=== PATIENT | male | born 1940 | race Caucasian/White ===

== ENCOUNTER 2018-11-07 11:47 | Inpatient (IN) | payer MEDICARE, OTHER ==
[~2018-11-07] VITALS: Ht 167.6 cm; Wt 62.6 kg
[~2018-11-07 11:47] MED LIST: ACET-868 PO; AMLO5TAB4 PO; CLON0.1T14 PO; DOCU-141 PO; ESCI5TAB PO; LEVO500T2 PO; MELA3TAB54 PO; MULT1TAB11 PO; RISP0.253 PO; SENN-168 PO; VALP250C PO
--- NOTE | 2018-11-07 12:19 | NUR ---
PT BROUGHT IN BY SON FOR PSYCH EVAL. PT AAOX3, VSS. PT CALM & COOPERATIVE. DENIES SI/HI, CP, SOB, DIZZINESS, N/V, WEAKNESS @ THIS TIME. PT SEEN & EVAL'D BY DR. ARNETT & WILL CONT TO MONITOR. SON @ BS.
[2018-11-07 12:28] LABS: BASOPHILS % (AUTO) 0.8 % (0.0-2.0); EOSINOPHILS % (AUTO) 2.5 % (0.0-6.0); HEMATOCRIT 37 % (39-51); HEMOGLOBIN 12.4 g/dL (13.5-17.5); LYMPHOCYTES # (AUTO) 1.2 /CMM (0.8-4.8); LYMPHOCYTES % (AUTO) 19.6 % (20.0-44.0); MEAN CORPUSCULAR HGB CONC 33 g/dl (31.0-36.0); MEAN CORPUSCULAR VOLUME 97 fL (80-96); MONOCYTES # (AUTO) 0.8 /CMM (0.1-1.30); MONOCYTES % (AUTO) 12.3 % (2.0-12.0); NEUTROPHILS # (AUTO) 4.1 /CMM (1.8-8.9); NEUTROPHILS % (AUTO) 64.8 % (43.0-81.0); PLATELET COUNT (AUTO) 155 /CMM (150-450); RED BLOOD CELL COUNT(AUTO) 3.84 MIL/uL (4.5-6.0); WHITE BLOOD COUNT (AUTO) 6.3 K/uL (4.3-11.0)
[2018-11-07 12:30] LABS: CALCIUM, SERUM 9.2 mg/dL (8.5-10.1); CARBON DIOXIDE 27 mmol/L (21-32); CHLORIDE 110 mmol/L (98-107); CREATININE 1.4 mg/dL (0.6-1.3); GLUCOSE 80 mg/dL (74-106); SODIUM SERUM 145 mmol/L (136-145); UREA NITROGEN, BLOOD 15 mg/dL (7-18)
[2018-11-07 12:36] LABS: ACETAMINOPHEN 0 ug/ml (10-30); ALANINE AMINOTRANSFERASE 26 U/L (12-78); ALBUMIN 3.3 g/dL (3.4-5.0); ALCOHOL, BLOOD < 3 mg/dL (0-0); ALKALINE PHOSPHATASE 63 U/L (46-116); ASPARTATE AMINOTRANSFERASE 36 U/L (15-37); BILIRUBIN,DIRECT 0.1 mg/dL (0.0-0.2); BILIRUBIN,TOTAL 0.6 mg/dL (0.2-1.0); SALICYLATE 0.8 mg/dL (2.8-20.0); TOTAL PROTEIN, SERUM 7.6 g/dL (6.4-8.2)
[2018-11-07 12:37] LABS: APPEARANCE,URINE Clear (CLEAR); BILIRUBIN,URINE Negative (NEGATIVE); BLOOD, URINE Trace-lysed Ery/uL (NEGATIVE); COLOR,URINE Yellow (YELLOW); KETONES,URINE Negative (NEGATIVE); LEUKOCYTE ESTERASE ,URINE Negative (NEGATIVE); NITRITE, URINE Negative (NEGATIVE); PH,URINE 6.5 (5.0-8.0); PROTEIN,URINE Negative (NEGATIVE); UGLUCOSE Negative (NEGATIVE)
[2018-11-07 12:39] LABS: BACTERIA,URINE Rare /HPF (None Seen); SQUAMOUS EPITHELIAL CELL,UR Rare /HPF (None Seen); WBC,URINE 0-2 /HPF (0-3)
--- NOTE | 2018-11-07 15:15 | NUR ---
DONNA, ALTERATIONS SUPERVISOR @ BS FOR EVAL.
--- NOTE | 2018-11-07 16:51 | NUR ---
REPORT GIVEN TO SYLVIA GAITAN FOR CONT OF CARE.
[2018-11-07] MEDS ORDERED: clonazePAM 0.5 MG TABLET PO PRN (17:30)
[2018-11-07] MEDS ORDERED: MAGNESIUM HYDROXIDE 30 ML UDC PO PRN (17:30)
[2018-11-07] MEDS ORDERED: ACETAMINOPHEN 325 MG TABLET PO PRN (17:30)
[2018-11-07] MEDS ORDERED: MAG HYDROX/AL HYDROX/SIMETH 30 ML UDC PO PRN (17:30)
[2018-11-07 20:00] VITALS: BP 105/53
--- NOTE | 2018-11-07 21:10 | NUR ---
ADMISSION NOTES: Admitted a 78 years old male. Pt is on 5150 for GD. Per hold pt's son brought him in ER after he has been unable to care for himself at the assisted living facility where he has been living. Pt has h/o of mental health issues and he has been diagnosed with Schizoaffective disorder. Pt was irritable, lost 25lbs in the past eight weeks, as he has not been eating, not showering or caring for himself. His son also reports that pt has been decompensating as he has not been receiving his medications at the facility. Pt is not able to care for himself at the facility. Upon face to face assessment, pt is a&ox1-2, confused, disoriented, disorganized, irritable, uncooperative, easily agitated. V/S wnl. Pt is ambulatory with assist, fall precaution implemented at all times. Pt refused to sign consent forms. MRSA done in ER. Belongings check for any contraband items. No contraband found. Pt refused skin/body assessment. Dr. Suarez and Angus made aware of the admission. All needs attended and anticipated. Will continue to monitor for safety and behavior [id number].
[2018-11-07 23:47] VITALS: BP 126/64
[2018-11-08 07:33] LABS: ALANINE AMINOTRANSFERASE 23 U/L (12-78); ALBUMIN 3.4 g/dL (3.4-5.0); ALKALINE PHOSPHATASE 56 U/L (46-116); ASPARTATE AMINOTRANSFERASE 29 U/L (15-37); BILIRUBIN,TOTAL 0.6 mg/dL (0.2-1.0); CARBON DIOXIDE 26 mmol/L (21-32); CHLORIDE 117 mmol/L (98-107); CREATININE 1.3 mg/dL (0.6-1.3); GLUCOSE 81 mg/dL (74-106); POTASSIUM 4.4 mmol/L (3.5-5.1); SODIUM SERUM 152 mmol/L (136-145); TOTAL PROTEIN, SERUM 7.7 g/dL (6.4-8.2); UREA NITROGEN, BLOOD 15 mg/dL (7-18)
[2018-11-08 07:35] LABS: CHOLESTEROL 126 mg/dL (<200); HDL CHOLESTEROL 35 mg/dL (40-60); LDL 79 mg/dL (0-99); TRIGLYCERIDES 96 mg/dL (30-150)
[2018-11-08 08:00] VITALS: BP 123/66
--- NOTE | 2018-11-08 10:42 | NUR ---
Initial Discharge note: Social work spoke with residential coordinator Linda Sparks ([phone]) who verified pt is accepted to [facility] upon receiving clinical information. Clinical will be sent to [facility] once MD has completed H&P. Pts current discharge plan is to discharge to [facility] (Address: [address] [place] [address] ).
[2018-11-08] MEDS: risperiDONE 0.25 MG TABLET PO SCH ×2 (14:24→21:30)
[2018-11-08 16:00] VITALS: BP 111/67
[2018-11-08 20:45] VITALS: BP 106/55
[2018-11-08] MEDS: DIVALPROEX SODIUM 250 MG TABLET.DR PO SCH (21:30)
[2018-11-08] MEDS: MUPIROCIN OINT 2% 22 GM TUBE SCH (21:35)
[2018-11-08] MEDS: MIRTAZAPINE 15 MG TABLET PO SCH (23:21)
--- NOTE | 2018-11-09 04:50 | NUR ---
GPS RN NOTE: PATIENT IN STABLE CONDITION, NO SOB, NO ACUTE DISTRESS, BREATHING EVEN AND UNLABORED, ENDORSED FOR CONTINUITY OF CARE
[2018-11-09 08:00] VITALS: BP 146/60
[2018-11-09] MEDS: DIVALPROEX SODIUM 250 MG TABLET.DR PO SCH ×2 (08:40→21:19)
[2018-11-09] MEDS: risperiDONE 0.25 MG TABLET PO SCH ×2 (08:40→16:17)
[2018-11-09] MEDS: MUPIROCIN OINT 2% 22 GM TUBE SCH ×2 (08:59→21:18)
[2018-11-09 16:04] VITALS: BP 114/65
--- NOTE | 2018-11-09 19:30 | NUR ---
GPS RN NOTE, RECEIVED PATIENT AWAKE AND IN BED, NO S/S OR COMPLAINTS OF PAIN AT THIS TIME. PATIENT IS DISPLAYING NO S/S OF APPARENT DISTRESS AT THIS TIME. PATIENT BREATHING IS UNLABORED WITH EQUAL RISE AND FALL OF THE CHEST. PATIENT IS ALERT AND ORIENTED X 3 ON ROOM AIR WITH A SPO2 OF 95%. PATIENT IS MED COMPLIANT, COOPERATIVE, ANXIOUS, DISORGANIZED, AND NEEDS REDIRECTION. PATIENT HAS A PATIENT DENIES SUICIDE IDEATIONS AND HOMICIDAL IDEATIONS AT THIS TIME. PATIENT ASSISTED WITH TURNING AND REPOSITIONING Q 2HRS AND PRN FOR COMFORT AND CIRCULATION. PATIENT HAS NO NEEDS AT THIS TIME. PATIENT EDUCATED ON THE USE OF THE CALL ALVES. PATIENT BED SIDE RAILS UP X 2 FOR SAFETY, BED IS LOCKED, LOW, AND I WILL CONTINUE TO MONITOR AND MAINTAIN SAFETY Q15 MIN WITH THE HELP OF STAFF.
[2018-11-09 20:00] VITALS: BP 135/61
[2018-11-09] MEDS: MIRTAZAPINE 15 MG TABLET PO SCH (21:19)
[2018-11-10 08:07] VITALS: BP 106/68
[2018-11-10] MEDS: DIVALPROEX SODIUM 250 MG TABLET.DR PO SCH ×2 (08:37→20:50)
[2018-11-10] MEDS: MUPIROCIN OINT 2% 22 GM TUBE SCH ×2 (08:37→20:50)
[2018-11-10] MEDS: risperiDONE 0.25 MG TABLET PO SCH ×2 (08:37→16:36)
[2018-11-10] MEDS ORDERED: LIDOCAINE 1%-EPI 1:200,000 SDV 10 ML VIAL IJ ONE ×2 (15:30)
[2018-11-10 16:31] VITALS: BP 109/60
--- NOTE | 2018-11-10 18:27 | NUR ---
GPS/RN-NOTES SEEN BY STEVE YUAN WITH ORDERS ( LEFT FOREHEAD LESION INCISIONAL/PUNCH BIOPSY). CONSENT WAS DONE,MOST OF THE SUPPLY/MATERIALS WAS PREPARED EXCEPT FOR THE PUNCH BIOPSY NEEDLE IT IS NOT AVAILABLE AT THIS TIME,ER ALSO DON'T HAVE THE SAID ITEM PER RECREATION FACILITY ATTENDANT . WILL ENDORSE TO INCOMING NURSE TO FOLLOW UP AND ENDORSE TO MORNING NURSE TO FOLLOW UP IN AM .
[2018-11-10 20:00] VITALS: BP 103/59
[2018-11-10] MEDS: MIRTAZAPINE 15 MG TABLET PO SCH (21:55)
[2018-11-11 07:16] LABS: ALANINE AMINOTRANSFERASE 19 U/L (12-78); ALKALINE PHOSPHATASE 48 U/L (46-116); ASPARTATE AMINOTRANSFERASE 16 U/L (15-37); BILIRUBIN,TOTAL 0.6 mg/dL (0.2-1.0); CALCIUM, SERUM 9.5 mg/dL (8.5-10.1); CARBON DIOXIDE 25 mmol/L (21-32); CHLORIDE 112 mmol/L (98-107); CREATININE 1.4 mg/dL (0.6-1.3); GLUCOSE 84 mg/dL (74-106); POTASSIUM 4.5 mmol/L (3.5-5.1); SODIUM SERUM 145 mmol/L (136-145); TOTAL PROTEIN, SERUM 6.9 g/dL (6.4-8.2); UREA NITROGEN, BLOOD 21 mg/dL (7-18)
[2018-11-11 08:00] VITALS: BP 106/64
[2018-11-11] MEDS: risperiDONE 0.25 MG TABLET PO SCH ×2 (08:55→16:33)
[2018-11-11] MEDS: DIVALPROEX SODIUM 250 MG TABLET.DR PO SCH ×2 (08:55→21:33)
--- NOTE | 2018-11-11 11:14 | NUR ---
WOUND CARE CONSULT WOUND CARE RECEIVED CONSULT FOR FOREHEAD LESIONS, POSSIBLE SKIN CANCER. WOUND CARE WILL DEFER CONSULT TO PLASTIC SURGICAL TEAM WHO ARE CURRENTLY FOLLOWING. PATIENT WITH FLIP AT 22. WILL SEE PRN.
[2018-11-11 16:00] VITALS: BP 146/90
[2018-11-11] MEDS: MUPIROCIN OINT 2% 22 GM TUBE SCH ×2 (16:35→21:35)
[2018-11-11 20:26] VITALS: BP 107/61
[2018-11-11] MEDS: MIRTAZAPINE 15 MG TABLET PO SCH (21:33)
[2018-11-12] MEDS: TEMAZEPAM 7.5 MG CAPSULE PO PRN ×2 (01:29→22:18)
--- NOTE | 2018-11-12 07:30 | NUR ---
resting in rm.pleasant,cooperative. Addendum: 11/12/18 at 0815 by CHAD BAUER RN above note incorrect dakota.
[2018-11-12 08:00] VITALS: BP 127/67
[2018-11-12] MEDS: DIVALPROEX SODIUM 250 MG TABLET.DR PO SCH ×2 (09:32→21:15)
[2018-11-12] MEDS: MUPIROCIN OINT 2% 22 GM TUBE SCH ×2 (09:32→21:16)
[2018-11-12] MEDS: risperiDONE 0.25 MG TABLET PO SCH ×3 (09:32→17:23)
[2018-11-12 16:10] VITALS: BP 100/64
[2018-11-12 20:02] VITALS: BP 121/57
[2018-11-12] MEDS: MIRTAZAPINE 15 MG TABLET PO SCH (21:15)
[2018-11-13 08:00] VITALS: BP 118/62
[2018-11-13] MEDS: risperiDONE 0.25 MG TABLET PO SCH ×3 (09:30→16:51)
[2018-11-13] MEDS: MUPIROCIN OINT 2% 22 GM TUBE SCH ×2 (09:30→21:18)
[2018-11-13] MEDS: DIVALPROEX SODIUM 250 MG TABLET.DR PO SCH ×2 (09:30→21:15)
--- NOTE | 2018-11-13 10:48 | NUR ---
NABIL faxed SNF referral to Linda Sparks, rouge mixer at [facility] Address: [address] [facility], [place] [address] for review.
--- NOTE | 2018-11-13 12:00 | NUR ---
SW received a phone call from Linda Sparks, physical medicine specialist at [facility] Address: [address] [address] [address], [place] [address] stating pt was accepted tot he facility.
[2018-11-13 16:00] VITALS: BP 128/72
[2018-11-13 20:00] VITALS: BP 157/77
[2018-11-13] MEDS: MIRTAZAPINE 15 MG TABLET PO SCH (21:15)
[2018-11-13] MEDS: TEMAZEPAM 7.5 MG CAPSULE PO PRN (21:15)
[2018-11-14 08:00] VITALS: BP 116/60
[2018-11-14] MEDS: DIVALPROEX SODIUM 250 MG TABLET.DR PO SCH ×3 (08:11→22:11)
[2018-11-14] MEDS: risperiDONE 0.25 MG TABLET PO SCH ×2 (08:11→16:21)
[2018-11-14] MEDS: MUPIROCIN OINT 2% 22 GM TUBE SCH (08:13)
--- NOTE | 2018-11-14 09:55 | NUR ---
NABIL contacted pts son Solomon [phone] to inform him pt is discharging tomorrow 11/15/17 to [facility]. Pts son agrees with discharge plan.
[2018-11-14 16:01] VITALS: BP 108/58
[2018-11-14 20:00] VITALS: BP 123/50
[2018-11-14] MEDS ORDERED: MIRTAZAPINE 15 MG TABLET PO SCH (22:00)
[2018-11-14] MEDS: TEMAZEPAM 7.5 MG CAPSULE PO PRN (22:12)
[2018-11-15] MEDS: DIVALPROEX SODIUM 250 MG TABLET.DR PO SCH ×2 (05:16→13:05)
[2018-11-15 08:00] VITALS: BP 125/68
[2018-11-15] MEDS: risperiDONE 0.25 MG TABLET PO SCH (08:55)
--- NOTE | 2018-11-15 09:00 | NUR ---
GPS RN AM NOTES RECEIVED PT IN HIS ROOM, RESTING IN BED COMFORTABLY, COOPERATIVE, NO AGITATION AT THIS TIME, MED COMPLIANT,GOES TO THE DINING ROOM BUT ISOLATIVE.PLEASANT. DENIES SI/HI AT THIS TIME. NO S/S OF DISTRESS NOTED. NO C/O PAIN OR DISCOMFORT. FALL PRECAUTIONS IMPLEMENTED. NEEDS ATTENDED AND ANTICIPATED. WILL CONTINUE TO MONITOR Q15 MINS FOR SAFETY AND BEHAVIOR.
--- NOTE | 2018-11-15 14:14 | NUR ---
DISCHARGE NOTE: Pt was discharged at 3:00pm via [facility] ambulance trip#[phone] to [facility] ([facility] [address] [facility] [id number] . Pts Son Solomon [phone] has been notified and agrees with discharge plan. Pts mood was confused with congruent affect. Pt unable to communicate due to cognitive impairment. Pt will be under the care of Career Services Officer: Dr. Yaakov Rodríguez Address: [address] [place] [address] [address], [place] [address] and Psychiatrist: Psychiatrist: Dr. Chambers [address] [facility] [address], [place] [address] [phone]. The multidisciplinary exitcare form was done, printed, signed, and given to the patient.
--- NOTE | 2018-11-15 15:00 | NUR ---
DISCHARGED PT TO [facility]NOTE 2[facility] VIA AMBULANCE WITH STABLE V/S.CALM AND COOPERATIVE.DENIES ANY SI/HI.BODY CHECK DONE AND WAS COOPERATIVE.WITH BUE MULTIPLE DISCOLORATIONS/SCABS,BLE AND LT ELBOW DRY SCABS.NO S/S OF INFECTION.AMBULATES AD JOSE ANGEL WITH MIN ASSIST.DENIES ANY PAIN OR DISTRESS.CALLED SYLVIA COLON OF [facility][NOTE 2] AND GAVE REPORT.CALLED PT'S SON,MAX AND MADE AWARE OF THE DISCHARGE TO [facility]NOTE 2].
== END 2018-11-15 15:00 | DRG 885 ==
LOC: ER 11:47 → GPS 16:20
PROVIDERS: ADMIT Psychiatry & Neurology Psychiatry; ATTEND Psychiatry & Neurology Psychiatry
DX: F31.9 Bipolar disorder, unspecified (principal); F29 Unspecified psychosis not due to a substance or known physiological condition; F41.9 Anxiety disorder, unspecified; F03.90 Unspecified dementia, unspecified severity, without behavioral disturbance, psychotic disturbance, mood disturbance, and anxiety; Z73.6 Limitation of activities due to disability; E03.9 Hypothyroidism, unspecified; E78.5 Hyperlipidemia, unspecified; I10 Essential (primary) hypertension; I25.10 Atherosclerotic heart disease of native coronary artery without angina pectoris; K21.9 Gastro-esophageal reflux disease without esophagitis; I70.0 Atherosclerosis of aorta; D53.9 Nutritional anemia, unspecified; Z85.038 Personal history of other malignant neoplasm of large intestine; C44.309 Unspecified malignant neoplasm of skin of other parts of face; F20.9 Schizophrenia, unspecified
CPT/HCPCS: 36415; 70450-TC; 71045-TC; 80048-TC; 80053-TC; 80061-TC; 80076-TC; 80164-TC; 80305; 81000-TC; 85025-TC; 87081-TC; G0480; J3490

== ENCOUNTER 2019-04-30 13:48 | Inpatient (IN) | payer MEDICARE, OTHER ==
[~2019-04-30] VITALS: Ht 180.3 cm; Wt 84.4 kg
[~2019-04-30 13:48] MED LIST changes: -ACET-868 PO; -AMLO5TAB4 PO; -CLON0.1T14 PO; -DOCU-141 PO; -ESCI5TAB PO; -LEVO500T2 PO; -MELA3TAB54 PO; -MULT1TAB11 PO; -RISP0.253 PO; -SENN-168 PO
--- NOTE | 2019-04-30 14:00 | NUR ---
DARIUS PA [facility] FOR PSYCH EVAL, PER REPORT AGGRESSION. PT AAOX4, VSS, RR EVEN & UNLABORED. PT CALM & COOPERATIVE, NAD NOTED AT THIS TIME. AWAITING EVAL BY ERMD/PA & WILL CONT TO MONITOR.
[2019-04-30 14:32] LABS: APPEARANCE,URINE Clear (CLEAR); BASOPHILS % (AUTO) 0.9 % (0.0-2.0); BILIRUBIN,URINE Negative (NEGATIVE); BLOOD, URINE Negative Ery/uL (NEGATIVE); COLOR,URINE Yellow (YELLOW); EOSINOPHILS % (AUTO) 3.6 % (0.0-6.0); HEMATOCRIT 38 % (39-51); HEMOGLOBIN 12.8 g/dL (13.5-17.5); KETONES,URINE Negative (NEGATIVE); LEUKOCYTE ESTERASE ,URINE Negative (NEGATIVE); LYMPHOCYTES # (AUTO) 1.4 /CMM (0.8-4.8); LYMPHOCYTES % (AUTO) 31.4 % (20.0-44.0); MEAN CORPUSCULAR HGB CONC 34 g/dl (31.0-36.0); MEAN CORPUSCULAR VOLUME 97 fL (80-96); MONOCYTES # (AUTO) 0.9 /CMM (0.1-1.30); MONOCYTES % (AUTO) 19.5 % (2.0-12.0); NEUTROPHILS % (AUTO) 44.6 % (43.0-81.0); NITRITE, URINE Negative (NEGATIVE); PLATELET COUNT (AUTO) 104 /CMM (150-450); PROTEIN,URINE Negative (NEGATIVE); RED BLOOD CELL COUNT(AUTO) 3.93 MIL/uL (4.5-6.0); UGLUCOSE Negative (NEGATIVE); UROBILINOGEN,URINE 0.2 EU/dL (0.2); WHITE BLOOD COUNT (AUTO) 4.4 K/uL (4.3-11.0)
[2019-04-30 14:38] LABS: CALCIUM, SERUM 8.8 mg/dL (8.5-10.1); CARBON DIOXIDE 30 mmol/L (21-32); CHLORIDE 107 mmol/L (98-107); CREATININE 1.3 mg/dL (0.6-1.3); GLUCOSE 78 mg/dL (74-106); POTASSIUM 4.1 mmol/L (3.5-5.1); SODIUM SERUM 143 mmol/L (136-145); UREA NITROGEN, BLOOD 17 mg/dL (7-18)
[2019-04-30 14:43] LABS: ALANINE AMINOTRANSFERASE 22 U/L (12-78); ALBUMIN 3.2 g/dL (3.4-5.0); ALKALINE PHOSPHATASE 51 U/L (46-116); ASPARTATE AMINOTRANSFERASE 29 U/L (15-37); BILIRUBIN,DIRECT 0.1 mg/dL (0.0-0.2); BILIRUBIN,TOTAL 0.3 mg/dL (0.2-1.0)
[2019-04-30 14:44] LABS: ACETAMINOPHEN < 2 ug/ml (10-30); ALCOHOL, BLOOD < 3 mg/dL (0-0); SALICYLATE 0.8 mg/dL (2.8-20.0)
[2019-04-30 15:13] LABS: EOSINOPHILS % (MANUAL) 4 % (0-4); LYMPHOCYTES % (MANUAL) 33 % (16-48); MONOCYTES % (MANUAL) 13 % (0-11.0); NEUTROPHILS % (MANUAL) 50 (42-76)
[2019-04-30] MEDS ORDERED: MAG30ORA PO (15:24)
[2019-04-30] MEDS ORDERED: RISP0.5T5 PO (15:24)
[2019-04-30] MEDS ORDERED: DIVA125C2 PO (15:24)
[2019-04-30] MEDS ORDERED: ACET325T53 PO (15:24)
[2019-04-30] MEDS ORDERED: CRAN450C PO (15:24)
[2019-04-30] MEDS ORDERED: AMIN30LI2 PO (15:24)
[2019-04-30] MEDS ORDERED: NA P133E RC (15:24)
[2019-04-30] MEDS ORDERED: MIRT15TA PO (15:24)
[2019-04-30] MEDS ORDERED: MAGN400O6 PO (15:24)
--- NOTE | 2019-04-30 16:39 | NUR ---
REPORT GIVEN TO SYLVIA VITAL FOR CONT OF CARE.
--- NOTE | 2019-04-30 18:37 | NUR ---
GPS/RN-NOTES RECEIVED 78 Y.O MALE PATIENT FROM [facility] ER. PATIENT ON 5150 FOR DTO AND GD ADULT. PATIENT SIGN ALL ADMISSION PAPERS .DR. PATE AWARE WITH ORDERS. PATIENT'S SON BRIAN SANTANA MADE AWARE OF PATIENT ADMISSION.CONTRABAND DONE. WILL ENDORSE TO NEXT SHIFT FOR CONTINUITY OF CARE AND FOR THE COMPLETION OF ADMISSION PROCESS .
--- NOTE | 2019-04-30 19:00 | NUR ---
RN-NOTES: ADMITTED A 78-YR OLD MALE, FROM [facility] ON 5150 FOR DTO/GD. PER HOLD, PT WAS PREOCCUPIED AND SOMEWHAT SUSPICIOUS. PATIENT HAS BEEN UNPREDICTABLE AND EXTREMELY LABILE, AND HE WILL SUDDENLY BECOME ANGRY AND VERBALLY AGGRESSIVE TOWARDS NURSING STAFF, CURSING AND YELLING FOR NO REASON. UPON FACE TO FACE ASSESSMENT, PATIENT IS ALERT AND ORIENTED X2, CALM, COOPERATIVE WITH CARE, FEELING DEPRESSED, WITH PERIODS OF CONFUSION, INTERACTS WHEN ENGAGED. NO SUICIDAL/HOMICIDAL IDEATION OR HALLUCINATIONS VERBALIZED. NO AGITATION NOTED. PT. WAS ADVISED OF THE HOLD. PT'S RIGHTS DISCUSSED, A GUIDE TO PRESCRIPTION MEDICATIONS PROVIDED. IN NO APPARENT DISTRESS NOTED. BELONGINGS WERE INVENTORIED AND CHECKED FOR CONTRABAND. PT. IS UNDER THE PSYCHIATRIC CARE OF DR. PATE ORDERS OBTAINED AND UNDER THE MEDICAL CARE OF MILADY BRAVO. NOTIFIED OF PT'S ADMISSION. SKIN ASSESSMENT DONE AND NOTED WITH RASHES ON LEFT ANTERIOR ANKLE AND LEFT GROIN. WOUND CONSULT ORDERED. BED IN LOCKED POSITION TO MAINTAIN SAFETY. FALL PRECAUTIONS IMPLEMENTED. WILL CONTINUE TO MONITOR Q15 MINS. FOR SAFETY AND BEHAVIOR.
[2019-04-30 20:00] VITALS: BP 126/57
[2019-04-30 20:19] VITALS: BP 126/57
[2019-04-30] MEDS ORDERED: MAG HYDROX/AL HYDROX/SIMETH 30 ML UDC PO PRN (21:00)
[2019-04-30] MEDS ORDERED: LORAZEPAM 0.5 MG TABLET PO PRN (21:00)
[2019-04-30] MEDS ORDERED: MAGNESIUM HYDROXIDE 30 ML UDC PO PRN (21:00)
[2019-04-30] MEDS ORDERED: ACETAMINOPHEN 325 MG TABLET PO PRN (21:00)
[2019-04-30] MEDS: DIVALPROEX SODIUM 125 MG CAP.SPRINK PO SCH (21:22)
[2019-04-30] MEDS: MIRTAZAPINE 15 MG TABLET PO SCH (21:23)
[2019-05-01] MEDS ORDERED: ACETAMINOPHEN 325 MG TABLET PO PRN (03:00)
[2019-05-01 07:12] LABS: CREATININE 1.3 mg/dL (0.6-1.3)
[2019-05-01 07:25] LABS: CHOLESTEROL 175 mg/dL (<200); HDL CHOLESTEROL 31 mg/dL (40-60); LDL 123 mg/dL (0-99); TRIGLYCERIDES 112 mg/dL (30-150)
[2019-05-01 08:00] VITALS: BP 155/78
--- NOTE | 2019-05-01 09:00 | NUR ---
SW contacted Linda, admissions clerk at [facility] Address: [address] [address], [place] [address] who stated pt is able to return once stable for discharge.
[2019-05-01] MEDS: risperiDONE-M 0.5 MG TAB.RAPDIS PO SCH ×2 (09:08→16:25)
[2019-05-01] MEDS: DIVALPROEX SODIUM 125 MG CAP.SPRINK PO SCH ×2 (09:08→21:23)
[2019-05-01 16:00] VITALS: BP 145/68
--- NOTE | 2019-05-01 16:07 | NUR ---
NABIL contacted pts son Solomon [phone] to discuss pts treatment plan and discharge plan to [facility]. Son stated he agreed and knew what the process for psychiatric hospitalization was. Son stated he has been dealing with pts mental illness since he was a teenager and was well aware of how the holds worked. Son also stated that he use to be pts conservator but it recently but that he is still in charge of making healthcare decision for pt.
[2019-05-01] MEDS: CLOTRIMAZOLE/BETAMETASONE DIPROPIONATE 15 GM TUBE TP SCH (16:57)
[2019-05-01] MEDS ORDERED: VITAMINS A AND D 56.7 GM TUBE TP PRN (18:00)
[2019-05-01] MEDS: CLOTRIMAZOLE 1% 15 GM TUBE TP SCH (18:30)
[2019-05-01 20:00] VITALS: BP 127/62
[2019-05-01] MEDS: MIRTAZAPINE 15 MG TABLET PO SCH (21:24)
[2019-05-01] MEDS: TEMAZEPAM 7.5 MG CAPSULE PO PRN (21:27)
[2019-05-02 08:00] VITALS: BP 118/73
--- NOTE | 2019-05-02 08:15 | NUR ---
WOUND CARE CONSULT WOUND CARE RECEIVED CONSULT FOR ANKLE FUNGAL INFECTION, LEFT GROIN REDNESS. WOUND CARE WILL DEFER CONSULT AND TREATMENT PLANS TO PLASTIC SURGICAL TEAM WHO ARE CURRENTLY FOLLOWING THIS PATIENT. PATIENT WITH FLIP AT 19, WILL SEE PRN.
--- NOTE | 2019-05-02 09:12 | NUR ---
INITIAL DISCHARGE PLAN: Per pts son Solomon [phone] he wishes for pt to return to [facility] Address: [address] [place] [address] . Pt also wishes to return. NABIL contacted Linda prize coordinator at [facility] Address: [address] [place] [address] who stated pt is able to return once stable for discharge.NABIL will help form a safe and proper discharge in collaboration with .
[2019-05-02] MEDS: DIVALPROEX SODIUM 125 MG CAP.SPRINK PO SCH ×2 (09:57→20:58)
[2019-05-02] MEDS: risperiDONE-M 0.5 MG TAB.RAPDIS PO SCH ×2 (09:59→17:36)
[2019-05-02] MEDS: CLOTRIMAZOLE/BETAMETASONE DIPROPIONATE 15 GM TUBE TP SCH ×2 (10:06→17:38)
[2019-05-02] MEDS: CLOTRIMAZOLE 1% 15 GM TUBE TP SCH ×2 (10:08→17:38)
--- NOTE | 2019-05-02 11:15 | NUR ---
GROUP NOTE: Pt participated in group on 05/02/19 at 1000 discussing the topic of discharge. S: "I just want to go back to [facility]Note 2] and how long will I be here?" O: Pt was calm and cooperative and maintained good eye contact. Pt kept repeating "7 to 10 days yes that's fine." A: Pt expressed willingness to stay here until psychiatrist discharged him. Pt gained awareness of mental illness and stated, "I am Bipolar and I make sure to take my medications as ordered." P: Pt will continue milieu treatment and continue medication stabilization.
[2019-05-02 16:12] VITALS: BP 112/73
[2019-05-02 20:00] VITALS: BP 118/59
[2019-05-02] MEDS: MIRTAZAPINE 15 MG TABLET PO SCH (21:06)
[2019-05-02] MEDS: TEMAZEPAM 7.5 MG CAPSULE PO PRN (22:23)
[2019-05-03 08:00] VITALS: BP 146/72
[2019-05-03] MEDS: risperiDONE-M 0.5 MG TAB.RAPDIS PO SCH ×2 (08:35→16:07)
[2019-05-03] MEDS: DIVALPROEX SODIUM 125 MG CAP.SPRINK PO SCH ×2 (08:35→20:53)
[2019-05-03] MEDS: CLOTRIMAZOLE 1% 15 GM TUBE TP SCH ×2 (08:38→16:07)
[2019-05-03] MEDS: CLOTRIMAZOLE/BETAMETASONE DIPROPIONATE 15 GM TUBE TP SCH ×2 (08:40→16:07)
[2019-05-03 16:00] VITALS: BP 113/72
[2019-05-03 20:00] VITALS: BP 124/75
[2019-05-03] MEDS: TEMAZEPAM 7.5 MG CAPSULE PO PRN (20:57)
[2019-05-03] MEDS: MIRTAZAPINE 15 MG TABLET PO SCH (21:08)
[2019-05-04 08:00] VITALS: BP 134/66
[2019-05-04] MEDS: CLOTRIMAZOLE/BETAMETASONE DIPROPIONATE 15 GM TUBE TP SCH ×2 (09:18→16:24)
[2019-05-04] MEDS: CLOTRIMAZOLE 1% 15 GM TUBE TP SCH ×2 (09:18→16:24)
[2019-05-04] MEDS: risperiDONE-M 0.5 MG TAB.RAPDIS PO SCH ×2 (09:18→16:24)
[2019-05-04] MEDS: DIVALPROEX SODIUM 125 MG CAP.SPRINK PO SCH ×2 (09:18→20:42)
[2019-05-04 16:00] VITALS: BP 110/75
[2019-05-04 19:27] VITALS: BP 138/64
[2019-05-04] MEDS: MIRTAZAPINE 15 MG TABLET PO SCH (21:00)
[2019-05-05 08:00] VITALS: BP 150/90
[2019-05-05] MEDS: risperiDONE-M 0.5 MG TAB.RAPDIS PO SCH ×2 (09:22→16:48)
[2019-05-05] MEDS: DIVALPROEX SODIUM 125 MG CAP.SPRINK PO SCH ×2 (09:22→21:19)
[2019-05-05] MEDS: CLOTRIMAZOLE/BETAMETASONE DIPROPIONATE 15 GM TUBE TP SCH ×2 (09:23→16:49)
[2019-05-05] MEDS: CLOTRIMAZOLE 1% 15 GM TUBE TP SCH ×2 (09:23→16:49)
[2019-05-05 16:00] VITALS: BP 150/88
[2019-05-05 19:45] VITALS: BP 135/91
[2019-05-05] MEDS: MIRTAZAPINE 15 MG TABLET PO SCH (21:19)
[2019-05-06 08:00] VITALS: BP 152/93
[2019-05-06] MEDS: CLOTRIMAZOLE 1% 15 GM TUBE TP SCH ×2 (08:37→16:31)
[2019-05-06] MEDS: CLOTRIMAZOLE/BETAMETASONE DIPROPIONATE 15 GM TUBE TP SCH ×2 (08:37→16:31)
[2019-05-06] MEDS: risperiDONE-M 0.5 MG TAB.RAPDIS PO SCH ×2 (08:37→16:31)
[2019-05-06] MEDS: DIVALPROEX SODIUM 125 MG CAP.SPRINK PO SCH ×3 (08:37→21:36)
--- NOTE | 2019-05-06 15:03 | NUR ---
Group note: Pt attended a group session on 05/06/19 at 2PM discussing grief and loss and the impact it has had on their lives. S: Pt stated, �I lost my mother and she was such a wonderful person. She really impacted the lives of others so positively. It was a really hard loss for me.� O: Pt was present during the group session and was engaged. Pt appeared to be in a depressed mood and presented with a calm affect. Pt appeared to be tearful when speaking about this topic. Pt maintained appropriate eye contact and had an appropriate tone of voice. A: Pt expressed that he feels like he lost a very positive and good person in his life. Pt understood that the loss has impacted his life and that through his mother's action he was able to model his own. Pt also realized that he has not properly been able to process her . P: Pt will continue milieu treatment and medication stabilization.
[2019-05-06 16:00] VITALS: BP 155/72
--- NOTE | 2019-05-06 19:30 | NUR ---
GPS RN NOTE, RECEIVED PATIENT AWAKE AND IN BED, NO S/S OR COMPLAINTS OF PAIN AT THIS TIME. PATIENT IS DISPLAYING NO S/S OF APPARENT DISTRESS AT THIS TIME. PATIENT BREATHING IS UNLABORED WITH EQUAL RISE AND FALL OF THE CHEST. PATIENT IS ALERT AND ORIENTED X 2 ON ROOM AIR WITH A SPO2 OF 93 %. PATIENT IS MED COMPLAINT, DISORGANIZED, ANXIOUS, COOPERATIVE, DEPRESSED, AND NEEDS REORIENTATION. PATIENT DENIES SUICIDE AND HOMICIDAL IDEATIONS AT THIS TIME. PATIENT ASSISTED WITH TURNING AND REPOSITIONING Q2HR AND PRN FOR COMFORT AND CIRCULATION. PATIENT HAS NO NEEDS AT THIS TIME. PATIENT EDUCATED ON THE USE OF THE CALL ALVES. PATIENT BED SIDE RAILS ARE UP X 2 FOR SAFETY, BED IS LOCKED, AND LOW WILL CONTINUE TO MONITOR AND MAINTAIN SAFETY.
[2019-05-06 20:02] VITALS: BP 94/47
[2019-05-06] MEDS: MIRTAZAPINE 15 MG TABLET PO SCH (21:36)
[2019-05-07 08:00] VITALS: BP 140/92
[2019-05-07] MEDS: risperiDONE-M 0.5 MG TAB.RAPDIS PO SCH ×2 (09:00→17:37)
--- NOTE | 2019-05-07 09:00 | NUR ---
NABIL received a call from pts son Solomon [phone] stating that he was going to file for emergency LPS conservatorship as his conservatorship had without him realizing it. NABIL informed him that pt will possibly be discharged next week as pts behavior is slowly improving but psychiatrist is till making medication adjustments. Solomon agreed with pts being hospitalized until next week and stated in the meantime he will file for emergency LSP conservatorship.
[2019-05-07] MEDS: DIVALPROEX SODIUM 125 MG CAP.SPRINK PO SCH ×3 (09:01→21:04)
[2019-05-07] MEDS: CLOTRIMAZOLE/BETAMETASONE DIPROPIONATE 15 GM TUBE TP SCH ×2 (09:12→17:45)
[2019-05-07] MEDS: CLOTRIMAZOLE 1% 15 GM TUBE TP SCH ×2 (09:12→17:45)
[2019-05-07 16:06] VITALS: BP 156/82
[2019-05-07 20:28] VITALS: BP 137/73
[2019-05-07] MEDS: MIRTAZAPINE 15 MG TABLET PO SCH (21:04)
[2019-05-08 08:00] VITALS: BP 140/62
[2019-05-08] MEDS: risperiDONE-M 0.5 MG TAB.RAPDIS PO SCH ×2 (08:56→16:20)
[2019-05-08] MEDS: DIVALPROEX SODIUM 125 MG CAP.SPRINK PO SCH ×3 (08:56→20:36)
[2019-05-08] MEDS: CLOTRIMAZOLE/BETAMETASONE DIPROPIONATE 15 GM TUBE TP SCH (09:00)
[2019-05-08] MEDS: CLOTRIMAZOLE 1% 15 GM TUBE TP SCH (11:33)
--- NOTE | 2019-05-08 11:33 | NUR ---
RN NOTE: INFORMED PHARMACY THAT CLOMITRAZOLE AND LOTRISONE NEED REFILLS. PHARMACY ONLY REFILLED CLOMITRAZOLE.
[2019-05-08] MEDS: NYSTATIN TOP POWDER 15 GM BOTTLE TP SCH ×2 (13:30→17:00)
[2019-05-08 16:00] VITALS: BP 113/77
--- NOTE | 2019-05-08 18:50 | NUR ---
RN NOTE: PHARMACY STILL HAS NOT BROUGHT NYSTATIN, WILL ENDORSE TO FOLLOWING SHIFT TO CONTACT PHARMACY AGAIN.
--- NOTE | 2019-05-08 18:52 | NUR ---
RN NOTE: SPOKE TO ÁLVARO FROM PHARMACY TO NOTIFY HER THAT NYSTATIN POWDER STILL ISNT HERE, SHE STATED SOMEONE WOULD BRING IT UP.
[2019-05-08 20:00] VITALS: BP_SYST 109; BP_SYST 136; BP_DIAS 55; BP_DIAS 62
[2019-05-08] MEDS: TEMAZEPAM 7.5 MG CAPSULE PO PRN (20:36)
[2019-05-08] MEDS: MIRTAZAPINE 15 MG TABLET PO SCH (21:18)
--- NOTE | 2019-05-09 07:42 | NUR ---
RN INITAL NOTES PT OUT OF THE ROOM, AMBULATING IN THE HALLWAY, NO BEHAVIORAL CHANGES AT THIS TIME. SAFETY ENSURED
[2019-05-09 08:00] VITALS: BP 110/53
[2019-05-09] MEDS: DIVALPROEX SODIUM 125 MG CAP.SPRINK PO SCH ×3 (08:51→21:00)
[2019-05-09] MEDS: risperiDONE-M 0.5 MG TAB.RAPDIS PO SCH ×2 (08:51→16:19)
[2019-05-09] MEDS: NYSTATIN TOP POWDER 15 GM BOTTLE TP SCH ×2 (08:59→18:34)
--- NOTE | 2019-05-09 10:55 | NUR ---
GROUP NOTE: Pt attended group on 05/08/19 at 1400 discussing the topic of discharge planning. S: "I'm ready to go to [facility] I don't know when Dr. Pina will release me." O: pt was calm and cooperative, pt appeared in a euthymic mood with congruent affect. A: Pt gained awareness of mental illness and expressed intense feelings of wanting to return to the SNF. P: pt will continue milieu treatment and continue medication stabilization.
--- NOTE | 2019-05-09 14:28 | NUR ---
GROUP NOTE: SW prompted pt to attend group discussing the topic of support systems, but pt unable to participate in group as he was sleeping and not easily aroused.
[2019-05-09 16:00] VITALS: BP 100/64
[2019-05-09 20:18] VITALS: BP 128/69
[2019-05-09] MEDS: TEMAZEPAM 7.5 MG CAPSULE PO PRN (21:01)
[2019-05-09] MEDS: MIRTAZAPINE 15 MG TABLET PO SCH (21:03)
[2019-05-10 08:00] VITALS: BP 112/61
[2019-05-10] MEDS: risperiDONE-M 0.5 MG TAB.RAPDIS PO SCH ×2 (09:19→16:22)
[2019-05-10] MEDS: DIVALPROEX SODIUM 125 MG CAP.SPRINK PO SCH ×3 (09:19→20:31)
[2019-05-10] MEDS: NYSTATIN TOP POWDER 15 GM BOTTLE TP SCH ×2 (09:20→16:22)
[2019-05-10 16:00] VITALS: BP 119/68
--- NOTE | 2019-05-10 19:02 | NUR ---
Handoff to SYLVIA Apple. Wally Ritchie RN
[2019-05-10 20:00] VITALS: BP 132/69
[2019-05-10] MEDS: TEMAZEPAM 7.5 MG CAPSULE PO PRN (21:29)
[2019-05-10] MEDS: MIRTAZAPINE 15 MG TABLET PO SCH (21:29)
[2019-05-11 08:00] VITALS: BP 120/76
[2019-05-11] MEDS: DIVALPROEX SODIUM 125 MG CAP.SPRINK PO SCH ×3 (09:11→21:49)
[2019-05-11] MEDS: risperiDONE-M 0.5 MG TAB.RAPDIS PO SCH ×2 (09:11→16:49)
[2019-05-11] MEDS: NYSTATIN TOP POWDER 15 GM BOTTLE TP SCH ×2 (09:53→16:51)
[2019-05-11 16:03] VITALS: BP 130/59
[2019-05-11 20:08] VITALS: BP 136/74
[2019-05-11] MEDS: MIRTAZAPINE 15 MG TABLET PO SCH (21:50)
[2019-05-11] MEDS: TEMAZEPAM 7.5 MG CAPSULE PO PRN (21:51)
--- NOTE | 2019-05-12 06:49 | NUR ---
GPS RN NOTE: PATIENT PACING, IRRITABLE, INTERACT WHEN ENGAGED, VERBALIZED DEPRESSION AND STATED THAT HE WANTS TO GO BACK TO [facility], 1:1 INTERVENTION DONE. ENCOURAGE THE PATIENT TO VERBALIZE FEELINGS. PATIENT APPRECIATED THE TIME AND THAT HE WAS ABLE TO SLEEP GOOD LAST NIGHT. WILL CONTINUE TO MONITOR
[2019-05-12 08:00] VITALS: BP 100/68
[2019-05-12] MEDS: DIVALPROEX SODIUM 125 MG CAP.SPRINK PO SCH ×2 (08:18→12:20)
[2019-05-12] MEDS: risperiDONE-M 0.5 MG TAB.RAPDIS PO SCH ×2 (08:18→16:15)
[2019-05-12] MEDS: NYSTATIN TOP POWDER 15 GM BOTTLE TP SCH ×2 (08:22→16:17)
--- NOTE | 2019-05-12 13:27 | NUR ---
RN NOTE: PATIENT STATED THAT HE'S BEEN CONSTIPATED SINCE 05/11/2019. PATIENT REFUSED PRN MOM, STATED IT DOESN'T WORK. PATIENT STATED THAT THE ONLY MEDICATION THAT WORKS IS SENOKOT. CONTACTED MILADY CARBAJAL AND GOT NEW ORDERS FOR SENOKOT 1 TAB PO QHS PRN FOR CONSTIPATION AND TO GIVE THE FIRST DOSE NOW.
[2019-05-12] MEDS ORDERED: SENNOSIDES 8.6 MG TABLET PO PRN (14:00)
[2019-05-12] MEDS ORDERED: SENNOSIDES 8.6 MG TABLET PO ONE (14:30)
--- NOTE | 2019-05-12 14:35 | NUR ---
RN NOTE: SENOKOT GIVEN FOR CONSTIPATION. ENCOURAGED PATIENT TO DRINK MORE WATER.
--- NOTE | 2019-05-12 15:51 | NUR ---
Group note: Pt attended a group session on 05/12/19 at 2:30PM discussing their personal strengths and coping skills while they are in the hospital and after they are discharged. S: Pt stated, �I am a hard worker. I worked hard my whole life in the [employer] industry and became very successful. 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 O: Pt was present during the group session and was engaged. Pt appeared to be in a eurythmic mood and presented with a calm affect. Pt maintained appropriate eye contact and had an appropriate tone of voice. A: Pt expressed understanding his need of being in the hospital. He also expressed understanding of being compliant with his medication in order to return to his nursing facility. Pt states that his family is also a good support system to help him cope with his mental health difficulties. P: Pt will continue milieu treatment and medication stabilization.
[2019-05-12 16:00] VITALS: BP 127/65
--- NOTE | 2019-05-12 16:14 | NUR ---
DISCHARGE NOTE: Pt will be discharged at 6:00pm via [facility] to [facility] ([facility]) [address] [facility] [address] . Pts son Solomon [phone] has been notified and agrees with discharge plan. Pts mood is euthymic with congruent affect. Pt denied visual/auditory hallucinations and denied suicidal/homicidal ideation. Pt will be under the care of [facility] [employer]: Dr. Yaakov Rodríguez Address: [address] [address] Phone: [phone] and Psychiatrist: Dr. Pina Address: [address] [place] [address] Phone: [phone]. The multidisciplinary exitcare form was done, printed, signed, and given to the patient.
--- NOTE | 2019-05-12 18:47 | NUR ---
HEAD GIRLS GOLF COACH NOTE: PATIENT IS A 78 YEAR OLD MALE THAT WAS DISCHARGED TO [facility] ([facility]) [address] [facility] [address] . PATIENT'S SON BRIAN HAS BEEN NOTIFIED AND AGREES WITH DISCHARGE PLAN. PATIENT IS ALERT AND ORIENTED X2, COOPERATIVE WITH PLAN OF CARE, COMPLIANT WITH MEDICATION MANAGEMENT. UPON FACE TO FACE ASSESSMENT, PATIENT DENIES SI/HI, VAH AT THE TIME OF DISCHARGE. NO ACUTE DISTRESS NOTED. VSS. NO COMPLAINTS. BEHAVIOR IMPROVED, PSYCHIATRIC TREATMENT PLANS MET, MEDICAL TREATMENT PLANS DEFERRED FOR CONTINUAL MONITORING. EDUCATED PATIENT ABOUT AFTERCARE AND PROVIDED COPY. RETURNED BELONGINGS TO PATIENT. MEDICATIONS RECONCILED WITH DR. PINA WITH PSYCHIATRIC DC ORDERS WELL MED RECON WITH MILADY CARBAJAL. REPORT GIVEN TO SYLVIA JORGE. SKIN CHECK DONE WITH NO ADDITIONAL ISSUES. DISCHARGE PAPERWORK SIGNED. ORDERS TO FOLLOW UP WITH WIRE FRAME LAMP SHADE MAKER Dr. Yaakov Rodríguez Address: [address] [address] Phone: [phone] Pina Address: [address] [place] [address] Phone: [phone]. PATIENT LEFT THE UNIT VIA GURNEY AT 1815.
== END 2019-05-12 18:47 | DRG 885 ==
LOC: ER 13:50 → GPS 16:32
PROVIDERS: ADMIT Psychiatry & Neurology Psychiatry; ATTEND Nurse Practitioner Acute Care
DX: F29 Unspecified psychosis not due to a substance or known physiological condition (principal); F03.91 Unspecified dementia, unspecified severity, with behavioral disturbance; E44.1 Mild protein-calorie malnutrition; F31.89 Other bipolar disorder; I10 Essential (primary) hypertension; E03.9 Hypothyroidism, unspecified; D69.6 Thrombocytopenia, unspecified; I25.10 Atherosclerotic heart disease of native coronary artery without angina pectoris; K21.9 Gastro-esophageal reflux disease without esophagitis; L30.4 Erythema intertrigo; L85.3 Xerosis cutis; Z73.6 Limitation of activities due to disability; M25.572 Pain in left ankle and joints of left foot; D63.8 Anemia in other chronic diseases classified elsewhere; E88.09 Other disorders of plasma-protein metabolism, not elsewhere classified; Z68.25 Body mass index [BMI] 25.0-25.9, adult
CPT/HCPCS: 36415; 80048-TC; 80061-TC; 80076-TC; 80164-TC; 80305; 81000-TC; 82565-TC; 84443-TC; 85025-TC; 85652-TC; 86431-TC; 87081-TC; 97116-TC; 97530-TC; G0480

== ENCOUNTER 2021-08-18 14:52 | Inpatient (IN) | payer MEDICARE, OTHER ==
[~2021-08-18] VITALS: Ht 182.9 cm; Wt 81.6 kg
[~2021-08-18 14:52] MED LIST changes: +ACET325T53 PO; +AMIN30LI2 PO; +CRAN450C PO; +DIVA125C2 PO; +MAG30ORA PO; +MAGN400O6 PO; +MIRT-121 PO; +NA P133E RC; +RISP0.5T5 PO; -VALP250C PO
--- NOTE | 2021-08-18 15:07 | NUR ---
THE PATIENT BIBS FOR PSYCHEVAL. PER REPORT THE PATIENT HAD BEEN VERBALLY AGRESSIVE TO STAFF SINCE THIS MORNING AND NOT FOLLOWING SAFETY COMMANDS. THE PATIENT IS CALM AND COOPERATIVE AT THIS TIME. ALERT AND ORIENTED X3. IN ROOM AIR AND DENIES SOB. RESPIRATION REGULAR AND UNLABORED. DENIES PAIN. ATTACHED TO THE MONITOR. WARM BLANKET PROVIDED FOR COMFORT. WILL CONTINUE TO MONITOR THE PATIENT.
[2021-08-18] MEDS ORDERED: quercetin PO (15:11)
[2021-08-18] MEDS ORDERED: CHOL200013 PO (15:11)
[2021-08-18] MEDS ORDERED: GABA-532 PO (15:11)
[2021-08-18] MEDS ORDERED: ASCO500C17 PO (15:11)
[2021-08-18] MEDS ORDERED: SENN-261 PO (15:11)
[2021-08-18 15:28] LABS: BASOPHILS # (AUTO) 0.1 K/uL (0.0-0.2); BASOPHILS % (AUTO) 1.1 % (0.0-2.0); EOSINOPHILS % (AUTO) 6.4 % (0.0-6.0); HEMATOCRIT 42 % (39-51); HEMOGLOBIN 14.1 g/dL (13.5-17.5); LYMPHOCYTES # (AUTO) 1.3 K/uL (0.8-4.8); LYMPHOCYTES % (AUTO) 25.7 % (20.0-44.0); MEAN CORPUSCULAR HGB CONC 34 g/dl (31.0-36.0); MEAN CORPUSCULAR VOLUME 93 fL (80-96); MONOCYTES # (AUTO) 0.7 K/uL (0.1-1.30); NEUTROPHILS # (AUTO) 2.7 K/uL (1.8-8.9); NEUTROPHILS % (AUTO) 52.8 % (43.0-81.0); PLATELET COUNT (AUTO) 131 K/uL (150-450); RED BLOOD CELL COUNT(AUTO) 4.49 MIL/uL (4.5-6.0)
[2021-08-18 15:36] LABS: CALCIUM, SERUM 9.4 mg/dL (8.5-10.1); CARBON DIOXIDE 28 mmol/L (21-32); CHLORIDE 104 mmol/L (98-107); CREATININE 1.3 mg/dL (0.6-1.3); GLUCOSE 110 mg/dL (74-106); POTASSIUM 3.8 mmol/L (3.5-5.1); SODIUM SERUM 140 mmol/L (136-145); UREA NITROGEN, BLOOD 17 mg/dL (7-18)
[2021-08-18 15:42] LABS: ALANINE AMINOTRANSFERASE 13 U/L (12-78); ALBUMIN 3.7 g/dL (3.4-5.0); ALKALINE PHOSPHATASE 80 U/L (46-116); ASPARTATE AMINOTRANSFERASE 19 U/L (15-37); BILIRUBIN,DIRECT 0.1 mg/dL (0.0-0.2); BILIRUBIN,TOTAL 0.5 mg/dL (0.2-1.0); TOTAL PROTEIN, SERUM 8.1 g/dL (6.4-8.2)
[2021-08-18 15:43] LABS: ALCOHOL, BLOOD < 10 mg/dL (0-0)
--- NOTE | 2021-08-18 15:53 | NUR ---
URINE COLLECTED AND SENT TO THE LAB
[2021-08-18 16:14] LABS: BILIRUBIN,URINE NEGATIVE (NEGATIVE); COLOR,URINE YELLOW (YELLOW); LEUKOCYTE ESTERASE ,URINE NEGATIVE (NEGATIVE); NITRITE, URINE NEGATIVE (NEGATIVE); PROTEIN,URINE NEGATIVE (NEGATIVE); UGLUCOSE NEGATIVE (NEGATIVE); UROBILINOGEN,URINE 0.2 EU/dL (0.2)
[2021-08-18 16:22] LABS: BACTERIA,URINE None seen /HPF (None Seen); SQUAMOUS EPITHELIAL CELL,UR 0-2 /HPF (None Seen); WBC,URINE 0-2 /HPF (0-3)
--- NOTE | 2021-08-18 17:05 | NUR ---
covid swab collected and sent to lab.
--- NOTE | 2021-08-18 18:02 | NUR ---
CALLED [facility] FOR CRISIS EVAL. ETA 1 HOUR.
--- NOTE | 2021-08-18 19:11 | NUR ---
REPORT GIVEN TO NURSE RONIT FOR DARNELL
--- NOTE | 2021-08-18 21:54 | NUR ---
report given to Arpit, rm 217 GPS
--- NOTE | 2021-08-18 22:47 | NUR ---
PT WAS TRANSFERRD TO GPS IN STABLE CONDITION
[2021-08-19] MEDS ORDERED: LORAZEPAM 0.5 MG TABLET PO PRN
[2021-08-19] MEDS ORDERED: ACETAMINOPHEN 325 MG TABLET PO PRN
[2021-08-19] MEDS ORDERED: MAGNESIUM HYDROXIDE 30 ML UDC PO PRN
[2021-08-19] MEDS ORDERED: TEMAZEPAM 7.5 MG CAPSULE PO PRN
[2021-08-19] MEDS ORDERED: NA PHOS,M-B/NA PHOS,DI-BA 1 EA ENEMA RC PRN (00:30)
[2021-08-19] MEDS ORDERED: BLOOD SUGAR DIAGNOSTIC 1 EACH STRIP IN ONE (00:30)
[2021-08-19] MEDS ORDERED: MAG HYDROX/AL HYDROX/SIMETH 30 ML UDC PO PRN ×2 (00:30)
--- NOTE | 2021-08-19 00:50 | NUR ---
GPS HARDWARE TRAINER NOTES: PATIENT ARRIVED THIS UNIT FROM ER ON A STRETCHER WITH AN ER STAFF AT 2250. PATIENT ORIGINALLY CAME FROM [facility]. PATIENT IS ON A 5150 HOLD FOR DTO/GD. HOLD WAS PLACED ON 08/18/21 @ 19:47. PER HOLD, PATIENT WAS BROUGHT IN BY AMBULANCE FROM [facility] FOR PSYCHIATRIC EVALUATION D/T INCREASED AGITATION AND AGGRESSION, YELLING, SCREAMING, PUSHING HIS ROOMMATE, STAFF AND OTHER RESIDENTS, NOT FOLLOWING REDIRECTION, POOR INSIGHT AND IMPAIRED JUDGEMENT. DURING PSYCH EVALUATION, PATIENT WAS CONFUSED, DISORGANIZED, AND DISORIENTED STATING "I GOT INTO FIGHT BECAUSE I WANT TO FIGHT". UPON FACE TO FACE EVALUATION PATIENT IS A/O X1-2, APPEARS DEPRESSED, FLAT AFFECT, ANXIOUS, PASSIVE. PATIENT DENIES SI/HI AT THIS TIME. PATIENT DENIES PAIN AT THIS TIME. PATIENT REFUSED TO SIGN ADMISSION PAPERWORK, SKIN ASSESSMENT DONE, PICTURES TAKEN AND PLACED IN PATIENT CHART. REFUSED ACCU CHEK. PATIENT IS UNDER THE PSYCHIATRIC CARE OF DR BOB AND THE MEDICAL CARE OF DR KNOTT. PATIENT BELONGINGS WERE INVENTORIED AND CHECKED FOR CONTRABAND. PATIENT ADVANCED DIRECTIVES PREFERENCE, IMMUNIZATIONS QUESTIONER, NECESSARY PAPERWORK COMPLETED. PATIENT EDUCATED ON THE USE OF THE CALL ALVES. BED IN LOWEST POSITION AND LOCKED, SIDE RAILS ARE UP X2 FOR SAFETY. OFFERED FLUID AND SNACKS TOLERATED. PATIENT HAS NO NEEDS AT THIS TIME. WILL CONTINUE TO MONITOR Q15 MIN FOR MOOD, BEHAVIOR AND SAFETY.
[2021-08-19] MEDS ORDERED: SENNOSIDES 8.6 MG TABLET PO PRN (01:00)
[2021-08-19 01:12] VITALS: BP 121/59
[2021-08-19 08:00] VITALS: BP 104/56
[2021-08-19] MEDS: CHOLECALCIFEROL 1,000 UNIT TABLET (VIT D3) PO SCH (08:04)
[2021-08-19] MEDS: ASCORBIC ACID 500 MG TABLET PO SCH (08:04)
[2021-08-19] MEDS: ENSURE ENLIVE CHOC 237 ML CAN PO SCH ×2 (08:06→17:04)
[2021-08-19] MEDS ORDERED: GABAPENTIN 100 MG CAPSULE PO SCH (09:00)
--- NOTE | 2021-08-19 09:21 | NUR ---
NABIL Initial Discharge Note: Patient currently resides at [facility]. NABIL confirmed with admin Ysravinder from [facility] who stated that pt is welcomed back upon discharge. NABIL will work with the MD and treatment team to coordinate appropriate discharge.
--- NOTE | 2021-08-19 10:35 | NUR ---
SW Family Contact: This field underwriter contacted patient's son Roman ([phone]) and Solomon ([phone]) and left a voicemail to gather collateral.
--- NOTE | 2021-08-19 10:55 | NUR ---
NABIL Family Contact: NABIL spoke with patient's son Solomon ([phone]) and discussed treatment/discharge plan. Son would want pt back to [facility] upon discharge.
--- NOTE | 2021-08-19 11:01 | NUR ---
Treatment Plan: Pt refused to sign treatment plan and was confused and suspicious.
[2021-08-19 16:00] VITALS: BP 143/79
[2021-08-19] MEDS: risperiDONE 1 MG TABLET PO SCH (17:31)
[2021-08-19 20:00] VITALS: BP 128/59
[2021-08-19] MEDS: MIRTAZAPINE 15 MG TABLET PO SCH (21:50)
--- NOTE | 2021-08-20 05:15 | NUR ---
RN NOTES : ANXIETY PT. NOTED VERY ANXIOUS ,RESTLESS, SCREAMING YELLING, PRN ATIVAN 0.5 MG PO GIVEN WILL CONTINUE TO MONITOR.
[2021-08-20] MEDS: ENSURE ENLIVE CHOC 237 ML CAN PO SCH ×2 (08:00→17:38)
--- NOTE | 2021-08-20 08:20 | NUR ---
PT. YELLING OUT AND SCREAMING DR. ROSENTHAL CALLED AND PT. MEDICATED WITH ZYPREXA 5 MG. IM.
[2021-08-20] MEDS ORDERED: OLANZAPINE 10 MG VIAL IM ONE (08:30)
[2021-08-20] MEDS: risperiDONE 1 MG TABLET PO SCH (09:00)
[2021-08-20] MEDS: CHOLECALCIFEROL 1,000 UNIT TABLET (VIT D3) PO SCH (09:00)
[2021-08-20] MEDS: ASCORBIC ACID 500 MG TABLET PO SCH (09:00)
[2021-08-20 14:52] LABS: BASOPHILS # (AUTO) 0.1 K/uL (0.0-0.2); BASOPHILS % (AUTO) 0.9 % (0.0-2.0); EOSINOPHILS % (AUTO) 2.9 % (0.0-6.0); HEMATOCRIT 41 % (39-51); HEMOGLOBIN 13.5 g/dL (13.5-17.5); LYMPHOCYTES # (AUTO) 1.1 K/uL (0.8-4.8); LYMPHOCYTES % (AUTO) 13.5 % (20.0-44.0); MEAN CORPUSCULAR HGB CONC 33 g/dl (31.0-36.0); MEAN CORPUSCULAR VOLUME 93 fL (80-96); MONOCYTES # (AUTO) 1.2 K/uL (0.1-1.30); MONOCYTES % (AUTO) 15.3 % (2.0-12.0); NEUTROPHILS # (AUTO) 5.3 K/uL (1.8-8.9); NEUTROPHILS % (AUTO) 67.4 % (43.0-81.0); PLATELET COUNT (AUTO) 155 K/uL (150-450); RED BLOOD CELL COUNT(AUTO) 4.36 MIL/uL (4.5-6.0); WHITE BLOOD COUNT (AUTO) 7.9 K/uL (4.3-11.0)
[2021-08-20 15:00] LABS: CALCIUM, SERUM 8.9 mg/dL (8.5-10.1); CREATININE 1.3 mg/dL (0.6-1.3); POTASSIUM 4.4 mmol/L (3.5-5.1)
[2021-08-20 15:22] LABS: EOSINOPHILS % (MANUAL) 3 % (0-4); LYMPHOCYTES % (MANUAL) 17 % (16-48); MONOCYTES % (MANUAL) 15 % (0-11.0); NEUTROPHILS % (MANUAL) 65 (42-76)
[2021-08-20 16:00] VITALS: BP 127/57
[2021-08-20] MEDS ORDERED: risperiDONE 1 MG TABLET PO SCH (17:00)
--- NOTE | 2021-08-20 18:11 | NUR ---
risperdal this martha. held,pt. too drowsy.
--- NOTE | 2021-08-20 19:30 | NUR ---
GPS RN NOTE, RECEIVED PATIENT AWAKE AND IN BED, NO S/S OR COMPLAINT OF PAIN AT THIS TIME. PATIENT IS DISPLAYING NO S/S OF APPARENT DISTRESS AT THIS TIME. PATIENT BREATHING IS UNLABORED WITH EQUAL RISE AND FALL OF THE CHEST. PATIENT IS ALERT AND ORIENTED X 1 ON ROOM AIR WITH A SPO2 90%. PATIENT IS COMPLIANT WITH MEDICATIONS, CONFUSED, ANXIOUS AT TIMES, AND COOPERATIVE. PATIENT DENIES SUICIDAL AND HOMICIDAL IDEATIONS AT THIS TIME. PATIENT ASSISTED WITH TURNING AND REPOSITIONING Q2HR AND PRN FOR COMFORT AND CIRCULATION. PATIENT HAS NO NEEDS AT THIS TIME. PATIENT EDUCATED ON THE USE OF THE CALL ALVES. PATIENT BED SIDE RAILS UP X 2 FOR SAFETY. PATIENT BED IS LOCKED, LOW, WITH BED ALARM ON. WILL CONTINUE TO MONITOR THIS PATIENT Q15 MINUTES WITH THE HELP OF STAFF TO MAINTAIN SAFETY.
[2021-08-20 20:09] VITALS: BP 129/57
--- NOTE | 2021-08-20 20:49 | NUR ---
GPS RN NOTE, PATIENT VITAL SIGNS ARE FOLLOWS B/P 129/59, TEMP 98.9, RESPIRATIONS 19, PULSE 102, SPO2 89% ON ROOM AIR. PATIENT IS HAS A WHEEZE IN LEFT LUNG BASE PER AUSCULTATION. PAGED [facility] AND INFORMED DAVEY SHEPHERD NP OF MY FINDINGS. DAVEY SHEPHERD NP ORDERED STAT CHEST X-RAY, OXYGEN VIA NASAL CANNULA AT 3 LITERS TO KEEP SPO2 ABOVE 91%, ALBUTEROL FS 2.5MG/0.5ML VIA NEB Q6HR PRN, AND IPRATROPIUM 0.5MG VIA NEB Q6HR PRN. ALL ORDERS NOTED AND CARRIED OUT WILL CONTINUE TO MONITOR THIS PATIENT WITH THE HELP OF STAFF.
[2021-08-20] MEDS ORDERED: IPRATROPIUM NEB FS 0.5 MG/2.5 ML AMPUL.NEB NEB PRN (21:00)
[2021-08-20] MEDS ORDERED: ALBUTEROL FS 2.5 MG/0.5 ML VIAL.NEB NEB PRN (21:00)
--- NOTE | 2021-08-20 21:30 | NUR ---
GPS RN NOTE, PAGED DR ROSENTHAL AND INFORMED HER THAT THIS PATIENT IS NOW ON OXYGEN WITH A SPO2 AT 94% ON 3 LITERS OF O2 VIA NASAL CANNULA. DR ROSENTHAL ORDERED TO HOLD PATIENT 2200 REMERON 22.5MG PO HS AND PLACED A ORDER FOR A ONE TO ONE SITTER. ALL ORDERS NOTED AND CARRIED OUT WILL CONTINUE TO MONITOR THIS PATIENT WITH THE HELP OF STAFF.
[2021-08-20] MEDS: MIRTAZAPINE 15 MG TABLET PO SCH (21:55)
[2021-08-21] MEDS ORDERED: ASCO500T10 PO (07:56)
[2021-08-21] MEDS ORDERED: MAGN400O6 PO (07:56)
[2021-08-21] MEDS ORDERED: LACT-246 PO (07:56)
[2021-08-21] MEDS ORDERED: ALBU2.5V13 IH (07:56)
[2021-08-21] MEDS ORDERED: CHOL100062 PO (07:56)
[2021-08-21] MEDS ORDERED: IPRA0.2S9 IH (07:56)
== END 2021-08-21 02:54 | disposition short-term general hospital (02) | DRG 885 ==
LOC: ER 14:53 → GPS 22:29
PROVIDERS: ADMIT Psychiatry & Neurology Psychiatry; ATTEND Family Medicine
DX: F29 Unspecified psychosis not due to a substance or known physiological condition (principal); F03.90 Unspecified dementia, unspecified severity, without behavioral disturbance, psychotic disturbance, mood disturbance, and anxiety; E03.9 Hypothyroidism, unspecified; E78.5 Hyperlipidemia, unspecified; F32.A Depression, unspecified; K21.9 Gastro-esophageal reflux disease without esophagitis; Z85.038 Personal history of other malignant neoplasm of large intestine; Z73.6 Limitation of activities due to disability; F25.9 Schizoaffective disorder, unspecified; I10 Essential (primary) hypertension; Z85.828 Personal history of other malignant neoplasm of skin; Z20.822 Contact with and (suspected) exposure to COVID-19
CPT/HCPCS: 36415; 71045-TC; 80048-TC; 80061-TC; 80076-TC; 81001; 85025-TC; 87081-TC; 97112-TC; 97116-TC; 97530-TC; C9803; G0480; J3490

== ENCOUNTER 2021-08-21 03:11 | Inpatient (IN) | payer MEDICARE, OTHER ==
[~2021-08-21] VITALS: Ht 170.2 cm; Wt 76.2 kg
[~2021-08-21 03:11] MED LIST changes: -AMIN30LI2 PO; +ASCO500C17 PO; +CHOL200013 PO; -DIVA125C2 PO; +GABA-532 PO; -MAGN400O6 PO; +SENN-261 PO; +quercetin PO
[2021-08-21] MEDS ORDERED: ACETAMINOPHEN 325 MG TABLET PO PRN (03:30)
[2021-08-21] MEDS ORDERED: Z GUARD REMEDY 2 OZ OINT TP PRN (03:30)
[2021-08-21] MEDS ORDERED: MAGNESIUM HYDROXIDE 30 ML UDC PO PRN (03:30)
[2021-08-21] MEDS ORDERED: MAG HYDROX/AL HYDROX/SIMETH 30 ML UDC PO PRN (03:30)
[2021-08-21] MEDS ORDERED: ONDANSETRON HCL/PF 4 MG/2 ML VIAL IVP PRN (03:30)
[2021-08-21] MEDS: ENOXAPARIN SODIUM 40 MG/0.4 ML DISP.SYRIN SQ SCH (03:30)
--- NOTE | 2021-08-21 03:30 | NUR ---
RN NOTES PT ARREIEVED TO UNIT VIA BED WITH MANAGED CARE NURSE AND CHARGE NURSE TANISHA FROM [facility]. PT IS A PT TRANSFERRED FROM [facility]. PT IS ON A 5150 HOLD THAT ENDS 08/21/21 @ 1945. PT IA AWAKE A/O X 2 APPEARS DEPRESSED WITH FLAT AFFECT. NO PAIN OR DISCOMFORT NOTED OR REPORTED. PT IS ON 3 L OF OXYGEN VIA NASAL CANNULA TOLERATING WELL 02 SAT 96 %. PT ADMIT DX PNA, HYPOXIA. AFTER EXPERIENCING EPISODE OF DESATURATION CX WAS DONE CX SHOWED POSSIBLE EARLY PNEUMONIA. PER NURSING REPORT PT IS AMBULATORY WITH WALKER PT NOT AMBULATING AT THIS TIME APPEARS VERY WEAK. PT ORIENTED TO ROOM AND UNIT. SITTER AT BEDSIDE. NO REPORTS OF SI/HI AT THIS TIME. WILL CHECK ON PT EVERY 15 MINS WITH THE HELP OF NURSING STAFF.
--- NOTE | 2021-08-21 03:35 | NUR ---
RN NOTES BEATRIZ NOT GIVEN NO LABS DRAWN YET WILL ENDORSE TO DAY SHIFT NURSE.
[2021-08-21] MEDS ORDERED: NA PHOS,M-B/NA PHOS,DI-BA 1 EA ENEMA RC PRN (04:00)
[2021-08-21] MEDS ORDERED: SENNOSIDES 8.6 MG TABLET PO PRN (04:00)
[2021-08-21 04:19] VITALS: BP 102/62
[2021-08-21] MEDS ORDERED: PIPERACILLIN /TAZOBACTAM 2.25 G VIAL IV ONE (04:26)
[2021-08-21 04:42] VITALS: BP 102/62
[2021-08-21] MEDS ORDERED: VANCOMYCIN 1.25 GM in IV D5W 250 ML IV ONE (05:00)
[2021-08-21] MEDS ORDERED: VANCOMYCIN 1 GM VIAL ONE (05:04)
[2021-08-21] MEDS ORDERED: VANCOMYCIN 500 MG VIAL ONE (05:14)
[2021-08-21] MEDS ORDERED: PIPERACILLIN /TAZOBACTAM 4.5 G in IV D5W 50 ML IV SCH (06:00)
--- NOTE | 2021-08-21 06:49 | NUR ---
RN NOTES PT ASLEEP IN BED EASILY AWOKEN WITH SITTER AT BEDSIDE NO SI/HI REPORTED. SAFETY PRECAUTIONS FOLLOWED. WILL ENDORSE CARE TO DAY SHIFT NURSE. Addendum: 08/21/21 at 0650 by NICHELLE GREWAL RN IV ACCESS ON THE RIGHT WRIT 22 G CURRENTLY RUNNING VANCO @ 125ML/HR
[2021-08-21 07:25] LABS: BASOPHILS # (AUTO) 0.1 K/uL (0.0-0.2); BASOPHILS % (AUTO) 0.7 % (0.0-2.0); HEMATOCRIT 39 % (39-51); HEMOGLOBIN 13.1 g/dL (13.5-17.5); LYMPHOCYTES # (AUTO) 1.6 K/uL (0.8-4.8); LYMPHOCYTES % (AUTO) 16.5 % (20.0-44.0); MEAN CORPUSCULAR HGB CONC 34 g/dl (31.0-36.0); MEAN CORPUSCULAR VOLUME 93 fL (80-96); MONOCYTES # (AUTO) 1.2 K/uL (0.1-1.30); MONOCYTES % (AUTO) 12.7 % (2.0-12.0); NEUTROPHILS # (AUTO) 6.4 K/uL (1.8-8.9); NEUTROPHILS % (AUTO) 67.1 % (43.0-81.0); PLATELET COUNT (AUTO) 128 K/uL (150-450); RED BLOOD CELL COUNT(AUTO) 4.18 MIL/uL (4.5-6.0); WHITE BLOOD COUNT (AUTO) 9.5 K/uL (4.3-11.0)
[2021-08-21 07:49] LABS: CARBON DIOXIDE 27 mmol/L (21-32); CHLORIDE 109 mmol/L (98-107); CREATININE 1.6 mg/dL (0.6-1.3); GLUCOSE 107 mg/dL (74-106); POTASSIUM 4.2 mmol/L (3.5-5.1); SODIUM SERUM 143 mmol/L (136-145); UREA NITROGEN, BLOOD 24 mg/dL (7-18)
[2021-08-21] MEDS ORDERED: ALBU2.5V13 IH (07:56)
[2021-08-21] MEDS ORDERED: MAGN400O6 PO (07:56)
[2021-08-21] MEDS ORDERED: LACT-246 PO (07:56)
[2021-08-21] MEDS ORDERED: CHOL100062 PO (07:56)
[2021-08-21] MEDS ORDERED: ASCO500T10 PO (07:56)
[2021-08-21] MEDS ORDERED: IPRA0.2S9 IH (07:56)
[2021-08-21 08:09] LABS: CALCIUM, SERUM 9.1 mg/dL (8.5-10.1); MAGNESIUM 2.4 mg/dL (1.8-2.4)
[2021-08-21] MEDS: PANTOPRAZOLE 40 MG TABLET.DR PO SCH (08:31)
[2021-08-21] MEDS: GABAPENTIN 100 MG CAPSULE PO SCH ×2 (08:31→16:59)
[2021-08-21] MEDS: CHOLECALCIFEROL 1,000 UNIT TABLET (VIT D3) PO SCH (08:31)
[2021-08-21] MEDS: ASCORBIC ACID 500 MG TABLET PO SCH (08:31)
[2021-08-21] MEDS: ZOSYN IVPB 3.375 G in IV D5W 50ml IV SCH ×3 (08:52→17:43)
[2021-08-21] MEDS: risperiDONE 0.25 MG TABLET PO SCH ×2 (13:08→16:59)
--- NOTE | 2021-08-21 19:55 | NUR ---
MS RN OPENING NOTES PATIENT LAST SEEN AWAKE IN BED RESTING. PATIENT'S ON 3LPM OF OXYGEN VIA NASAL CANNULA WITH NO RESPIRATORY DISTRESS NOTED. IV ACCESS NOTED ON RIGHT WRIST GAUGE#22. PATIENT'S IN NO ACUTE DISTRESS AT THIS TIME. SAFETY PRECAUTIONS IN PLACE: BED LOCKED, BED ALARM ON, SR UP X3, AND CALL LIGHT WITHIN REACH OF THE PATIENT. WILL CONTINUE TO MONITOR THE PATIENT.
[2021-08-21 20:00] VITALS: BP 105/60
[2021-08-22] MEDS: ZOSYN IVPB 3.375 G in IV D5W 50ml IV SCH ×3 (00:09→11:04)
[2021-08-22] MEDS: ENOXAPARIN SODIUM 40 MG/0.4 ML DISP.SYRIN SQ SCH (04:11)
[2021-08-22] MEDS ORDERED: VANCOMYCIN 1 GM in IV D5W 250ml IV SCH (05:00)
[2021-08-22 05:47] LABS: BASOPHILS # (AUTO) 0.1 K/uL (0.0-0.2); BASOPHILS % (AUTO) 1.1 % (0.0-2.0); EOSINOPHILS % (AUTO) 6.2 % (0.0-6.0); HEMATOCRIT 37 % (39-51); HEMOGLOBIN 12.4 g/dL (13.5-17.5); LYMPHOCYTES # (AUTO) 1.3 K/uL (0.8-4.8); LYMPHOCYTES % (AUTO) 17.9 % (20.0-44.0); MEAN CORPUSCULAR HGB CONC 33 g/dl (31.0-36.0); MEAN CORPUSCULAR VOLUME 93 fL (80-96); MONOCYTES % (AUTO) 14.3 % (2.0-12.0); NEUTROPHILS # (AUTO) 4.4 K/uL (1.8-8.9); NEUTROPHILS % (AUTO) 60.5 % (43.0-81.0); PLATELET COUNT (AUTO) 124 K/uL (150-450); WHITE BLOOD COUNT (AUTO) 7.2 K/uL (4.3-11.0)
--- NOTE | 2021-08-22 06:30 | NUR ---
MS RN CLOSING NOTES PATIENT LAST SEEN AWAKE IN BED RESTING. PATIENT'S ALERT AND ORIENTED X2. PATIENT'S ON 3LPM OF OXYGEN VIA NASAL CANNULA WITH NO RESPIRATORY DISTRESS NOTED. IV ACCESS NOTED ON RIGHT WRIST GAUGE#22, CURRENTLY RUNNING ZOSYN. PATIENT'S IN NO ACUTE DISTRESS AT THIS TIME. SAFETY PRECAUTIONS IN PLACE: SITTER AT BEDSIDE, BED LOCKED, BED ALARM ON, SR UP X3, AND CALL LIGHT WITHIN REACH OF THE PATIENT. WILL ENDORSE CARE TO THE DAY SHIFT NURSE.
[2021-08-22 07:06] LABS: CALCIUM, SERUM 8.9 mg/dL (8.5-10.1); CARBON DIOXIDE 28 mmol/L (21-32); CHLORIDE 107 mmol/L (98-107); CREATININE 1.6 mg/dL (0.6-1.3); GLUCOSE 109 mg/dL (74-106); PHOSPHORUS 3.9 mg/dL (2.5-4.9); POTASSIUM 4.1 mmol/L (3.5-5.1); SODIUM SERUM 141 mmol/L (136-145); UREA NITROGEN, BLOOD 23 mg/dL (7-18)
[2021-08-22 07:13] LABS: THYROID STIMULATING HORMONE 1.606 uIU/mL (0.358-3.74); URIC ACID 5.8 mg/dL (2.6-7.2)
[2021-08-22] MEDS: PANTOPRAZOLE 40 MG TABLET.DR PO SCH (07:26)
--- NOTE | 2021-08-22 07:30 | NUR ---
MS RN OPENING NOTES RECEIVED PATIENT IN BED, AWAKE, A&O X 1-2, SITTER AT BEDSIDE. PATIENT'S ON 3LPM OF OXYGEN VIA NASAL CANNULA WITH NO RESPIRATORY DISTRESS NOTED. IV ACCESS NOTED ON RIGHT WRIST GAUGE#22. PATIENT'S IN NO ACUTE DISTRESS AT THIS TIME. SAFETY PRECAUTIONS IN PLACE: BED LOCKED ON LOWEST POSITION, BED ALARM ON, SR UP X3, AND CALL LIGHT WITHIN REACH. WILL CONTINUE TO MONITOR ACCORDINGLY.
[2021-08-22 08:00] VITALS: BP_SYST 103; BP_DIAS 58; BP_DIAS 74
[2021-08-22] MEDS: GABAPENTIN 100 MG CAPSULE PO SCH ×2 (08:12→16:17)
[2021-08-22] MEDS: CHOLECALCIFEROL 1,000 UNIT TABLET (VIT D3) PO SCH (08:12)
[2021-08-22] MEDS: risperiDONE 0.25 MG TABLET PO SCH ×3 (08:12→16:17)
[2021-08-22] MEDS: ASCORBIC ACID 500 MG TABLET PO SCH (08:12)
[2021-08-22 16:18] VITALS: BP 122/57
[2021-08-22] MEDS ORDERED: CEFTRIAXONE 1 G in IV D5W 50 ML IV SCH (17:00)
[2021-08-22] MEDS ORDERED: AZITHROMYCIN 250 MG TABLET PO SCH (17:00)
--- NOTE | 2021-08-22 18:43 | NUR ---
MS RN CLOSING NOTES PATIENT IN BED, AWAKE, A&O X 1-2, SITTER AT BEDSIDE. PATIENT'S ON RA, NO RESPIRATORY DISTRESS NOTED. IV ACCESS NOTED ON RIGHT WRIST GAUGE#22. PATIENT'S IN NO ACUTE DISTRESS AT THIS TIME. SAFETY PRECAUTIONS IN PLACE: BED LOCKED ON LOWEST POSITION, BED ALARM ON, SR UP X3, AND CALL LIGHT WITHIN REACH. ALL NEEDS ATTENDED AND MET. DUE MEDS GIVEN ORDERED. WILL ENDORSE TO ONCOMING SHIFT FOR DARNELL.
--- NOTE | 2021-08-22 18:43 | NUR ---
RN NOTES BLADDER SCAN DONE->724, RELAYED TO DR. HENDRIX.
--- NOTE | 2021-08-22 18:43 | NUR ---
RN NOTES RECEIVED AN ORDER FROM DR. HENDRIX, STRAIGHT CATHETERIZATION DONE, URINE SPECIMEN COLLECTED FOR URINE STUDIES. CALLED LAB SPOKE TO RONIT FOR SPECIMEN HOT REPAIRMAN.
--- NOTE | 2021-08-22 19:12 | NUR ---
RN OPENING NOTE PT AWAKE IN BED, A/OX2, VERBALLY RESPONSIVE BUT DOES NOT ENGAGE IN CONVERSATION. DENIES ANY PAIN AT THIS TIME. RESPIRATIONS EVEN/UNLABORED. ON ROOM AIR, O2 SAT 92%. WILL CONT TO MONITOR O2 SATS WHILE ON ROOM AIR. SITTER AT BEDSIDE. IV SITE: R-WRIST #22G INTACT/PATENT/FLUSHES WELL. NO ACUTE DISTRESS NOTED. SAFETY MEASURES IN PLACE, BED IN LOWEST LOCKED POSITION, S/R UPX2, CALL LIGHT WITHIN REACH. WILL CONT TO MONITOR.
[2021-08-22 20:00] VITALS: BP 129/59
--- NOTE | 2021-08-22 20:12 | NUR ---
RN NOTE TEMP 100.4. O2 SAT 92% ON RA. GIVEN TYLENOL 650MG PO. MADE COMFORTABLE IN BED. WILL CONT TO MONITOR.
--- NOTE | 2021-08-22 23:46 | NUR ---
MS RN notes Called and spoke with Pedro from lab to fruit picker urine specimen. Will continue to monitor.
[2021-08-23 00:05] LABS: BILIRUBIN,URINE NEGATIVE (NEGATIVE); COLOR,URINE YELLOW (YELLOW); LEUKOCYTE ESTERASE ,URINE NEGATIVE (NEGATIVE); NITRITE, URINE NEGATIVE (NEGATIVE); PH,URINE 6.5 (5.0-8.0); PROTEIN,URINE NEGATIVE (NEGATIVE); UGLUCOSE NEGATIVE (NEGATIVE); UROBILINOGEN,URINE 0.2 EU/dL (0.2)
[2021-08-23 00:13] LABS: BACTERIA,URINE None seen /HPF (None Seen); RBC,URINE 0-2 /HPF (0-2); SQUAMOUS EPITHELIAL CELL,UR Few /HPF (None Seen); WBC,URINE 0-2 /HPF (0-3)
[2021-08-23 00:26] LABS: CREATININE, URINE 36.7 MG/DL (30.0-125.0)
[2021-08-23 02:15] LABS: EOSINOPHIL,URINE None Seen
[2021-08-23] MEDS: ENOXAPARIN SODIUM 40 MG/0.4 ML DISP.SYRIN SQ SCH ×2 (03:30→04:25)
--- NOTE | 2021-08-23 04:30 | NUR ---
RN NOTE LOVENOX NOT GIVEN, PT REFUSING AND SCREAMING "DON'T TOUCH ME RIGHT NOW!"
--- NOTE | 2021-08-23 06:42 | NUR ---
RN CLOSING NOTE PT AWAKE IN BED, A/OX2, VERBALLY RESPONSIVE. DENIES ANY PAIN AT THIS TIME. RESPIRATIONS EVEN/UNLABORED. NO SOB. ON ROOM AIR THE WHOLE NIGHT, O2 SATS 92-96%. SITTER AT BEDSIDE. FLUIDS OFFERED FREQUENTLY TAWNY. NO ACUTE EVENTS NOTED DURING THE SHIFT. SAFETY MEASURES MAINTAINED. WILL CONT TO MONITOR AND ENDORSE TO NEXT SHIFT NURSE.
[2021-08-23] MEDS: PANTOPRAZOLE 40 MG TABLET.DR PO SCH (07:30)
[2021-08-23] MEDS: CHOLECALCIFEROL 1,000 UNIT TABLET (VIT D3) PO SCH (09:00)
[2021-08-23] MEDS: ASCORBIC ACID 500 MG TABLET PO SCH (09:00)
[2021-08-23] MEDS: GABAPENTIN 100 MG CAPSULE PO SCH ×2 (09:00→16:41)
[2021-08-23] MEDS: risperiDONE 0.25 MG TABLET PO SCH ×3 (09:00→16:41)
--- NOTE | 2021-08-23 09:16 | NUR ---
RN NOTES PATIENT REFUSED MORNING MEDICATIONS. EXPLAINED IMPORTANCE OF MEDICATIONS BUT PATIENT STILL REFUSED, STATED "NOT TODAY" WHEN ASKED IF HE WANTS TO TAKE DUE MEDICATIONS. RIGHT TO REFUSE RESPECTED. WILL CONTINUE TO MONITOR.
--- NOTE | 2021-08-23 11:11 | NUR ---
RN NOTES RECEIVED CALL FROM DR. GONG FOR PRN ORDERS NOTED.
[2021-08-23] MEDS ORDERED: LORAZEPAM INJ 2 MG/ML VIAL IM ONE (11:30)
[2021-08-23] MEDS ORDERED: QUETIAPINE FUMARATE 25 MG TABLET PO PRN (11:30)
[2021-08-23] MEDS ORDERED: OLANZAPINE 10 MG VIAL IM ONE (12:30)
[2021-08-23 15:14] LABS: CALCIUM, SERUM 9.2 mg/dL (8.5-10.1); CARBON DIOXIDE 24 mmol/L (21-32); CHLORIDE 108 mmol/L (98-107); CREATININE 1.5 mg/dL (0.6-1.3); GLUCOSE 110 mg/dL (74-106); POTASSIUM 3.9 mmol/L (3.5-5.1); SODIUM SERUM 144 mmol/L (136-145); UREA NITROGEN, BLOOD 18 mg/dL (7-18)
--- NOTE | 2021-08-23 16:42 | NUR ---
RN NOTES PATIENT ABLE TO TAKE MEDICATION W/ APPLE SAUCE.
--- NOTE | 2021-08-23 18:18 | NUR ---
RN NOTES PATIENT SEEN BY DR. GONG AND DR. BARRERA TODAY. OKAY FOR DISCHARGE TO [facility] UNIT; CONTINUE HOME MEDS PER DR. BARRERA.
--- NOTE | 2021-08-23 19:04 | NUR ---
RN NOTES PATIENT TRANSFERRED TO [facility] UNIT AT ROOM 215-B, ACCOMPANIED BY ENTERPRISE APPLICATION ADMINISTRATOR AND ME; PATIENT IS AMBULATORY USING [facility]. PATIENT REFUSED FOR IV LINE TO BE REMOVED EN ROUTE TO [facility]. ENDORSED TO [facility] RN, FOR DARNELL. DISCHARGE ORDERS AND MED LIST PROVIDED.
[2021-08-23] MEDS ORDERED: TAMSULOSIN 0.4 MG CAP.SR.24H PO SCH (22:00)
[2021-08-23] MEDS ORDERED: QUET25TA PO (22:34)
[2021-08-23] MEDS ORDERED: ENOX40DI SQ (22:34)
[2021-08-23] MEDS ORDERED: GABA-532 PO (22:34)
[2021-08-23] MEDS ORDERED: RISP0.5T5 PO (22:34)
[2021-08-23] MEDS ORDERED: PANT40TA49 PO (22:34)
[2021-08-24] MEDS ORDERED: ALLA266C2 TP (08:21)
== END 2021-08-23 19:00 | DRG 189 ==
LOC: MED 03:11
PROVIDERS: ADMIT Nurse Practitioner Acute Care; ATTEND Nurse Practitioner Acute Care
DX: J96.01 Acute respiratory failure with hypoxia (principal); N17.0 Acute kidney failure with tubular necrosis; J15.9 Unspecified bacterial pneumonia; F03.91 Unspecified dementia, unspecified severity, with behavioral disturbance; E03.9 Hypothyroidism, unspecified; E78.5 Hyperlipidemia, unspecified; F31.9 Bipolar disorder, unspecified; F25.9 Schizoaffective disorder, unspecified; F41.9 Anxiety disorder, unspecified; I10 Essential (primary) hypertension; Z87.891 Personal history of nicotine dependence; K21.9 Gastro-esophageal reflux disease without esophagitis; F29 Unspecified psychosis not due to a substance or known physiological condition; Z73.6 Limitation of activities due to disability; F39 Unspecified mood [affective] disorder
CPT/HCPCS: 36415; 71045-TC; 74018; 76770-TC; 80048-TC; 81001; 82570-TC; 83605-TC; 83735-TC; 84100-TC; 84155-TC; 84300-TC; 84443-TC; 84550-TC; 85025-TC; 87040-TC; 87081-TC; 87086-TC; 97112-TC; 97116-TC; 97530-TC; G0378; J0696; J1650; J2060; J2543; J3370; J3490; J7050; J7060

== ENCOUNTER 2021-08-23 19:19 | Inpatient (IN) | payer MEDICARE, OTHER ==
[~2021-08-23] VITALS: Ht 170.2 cm; Wt 75.7 kg
[~2021-08-23 19:19] MED LIST changes: +ALBU2.5V13 IH; -ASCO500C17 PO; +ASCO500T10 PO; +CHOL100062 PO; -CHOL200013 PO; -GABA-532 PO; +IPRA0.2S9 IH; +LACT-246 PO; +MAGN400O6 PO; -MIRT-121 PO; -RISP0.5T5 PO
[2021-08-23 19:30] VITALS: BP 131/76
--- NOTE | 2021-08-23 19:30 | NUR ---
[facility] ADMISSION NOTE ADMITTED THIS 80 Y/O MALE PT FROM [address] ADMITTED TO GPS ON 5250 HOLD. PT WITH AGITATION, STRIKING OUT, AND NO PLAN OF CARE. UPON [id number] ASSESSMENT, PT IS A/O X2, CONFUSED, COOPERATIVE/UNCOOPERATIVE, LABILE MOOD, EASILY ANGERED/AGITATED, ANXIOUS. REDIRECTABLE AT THIS TIME. DENIES SI/HI. NO C/O PAIN. PT AMBULATES WITH FWW BUT UNSTEADY GAIT, ASSISTANCE PROVIDED. SKIN INTACT. NOTIFIED MD OF ADMISSION. ALL BELONGINGS/CONTRABAND CHECKED AND RECORDED. PT ORIENTED TO STAFF AND UNIT POLICY. NO ACUTE DISTRESS NOTED. SAFETY MEASURES IN PLACE. WILL CONT TO MONITOR Q15MIN FOR SAFETY AND BEHAVIOR.
[2021-08-23 20:00] VITALS: BP 131/74
[2021-08-23] MEDS ORDERED: MAG HYDROX/AL HYDROX/SIMETH 30 ML UDC PO PRN ×2 (20:30→23:00)
[2021-08-23] MEDS ORDERED: MAGNESIUM HYDROXIDE 30 ML UDC PO PRN ×2 (20:30→23:00)
[2021-08-23] MEDS ORDERED: ACETAMINOPHEN 325 MG TABLET PO PRN ×2 (20:30→23:00)
[2021-08-23] MEDS ORDERED: clonazePAM 0.5 MG TABLET PO SCH (20:30)
[2021-08-23] MEDS ORDERED: BLOOD SUGAR DIAGNOSTIC 1 EACH STRIP IN ONE (20:30)
[2021-08-23] MEDS ORDERED: GABA-532 PO (22:34)
[2021-08-23] MEDS ORDERED: ENOX40DI SQ (22:34)
[2021-08-23] MEDS ORDERED: RISP0.5T5 PO (22:34)
[2021-08-23] MEDS ORDERED: QUET25TA PO (22:34)
[2021-08-23] MEDS ORDERED: PANT40TA49 PO (22:34)
[2021-08-23] MEDS ORDERED: SENNOSIDES 8.6 MG TABLET PO PRN (23:00)
[2021-08-23] MEDS ORDERED: NA PHOS,M-B/NA PHOS,DI-BA 1 EA ENEMA RC PRN (23:00)
[2021-08-23] MEDS ORDERED: ALBUTEROL FS 2.5 MG/0.5 ML VIAL.NEB IH PRN (23:00)
[2021-08-23] MEDS ORDERED: IPRATROPIUM NEB FS 0.5 MG/2.5 ML AMPUL.NEB IH PRN (23:00)
[2021-08-23] MEDS: TEMAZEPAM 7.5 MG CAPSULE PO PRN (23:04)
[2021-08-24 07:04] LABS: ALANINE AMINOTRANSFERASE 13 U/L (12-78); ALKALINE PHOSPHATASE 53 U/L (46-116); ASPARTATE AMINOTRANSFERASE 18 U/L (15-37); BILIRUBIN,TOTAL 0.7 mg/dL (0.2-1.0); CALCIUM, SERUM 9.1 mg/dL (8.5-10.1); CARBON DIOXIDE 32 mmol/L (21-32); CHLORIDE 107 mmol/L (98-107); CREATININE 1.5 mg/dL (0.6-1.3); GLUCOSE 85 mg/dL (74-106); POTASSIUM 4.2 mmol/L (3.5-5.1); SODIUM SERUM 143 mmol/L (136-145); TOTAL PROTEIN, SERUM 7.5 g/dL (6.4-8.2); UREA NITROGEN, BLOOD 22 mg/dL (7-18)
[2021-08-24 07:08] LABS: CHOLESTEROL 185 mg/dL (<200); HDL CHOLESTEROL 33 mg/dL (40-60); LDL 128 mg/dL (0-99); TRIGLYCERIDES 85 mg/dL (30-150)
[2021-08-24] MEDS ORDERED: clonazePAM 0.5 MG TABLET PO PRN (07:30)
[2021-08-24 08:00] VITALS: BP 125/77
[2021-08-24] MEDS: ENSURE ENLIVE 237 ML LIQUID (VANILLA) PO SCH ×2 (08:00→17:00)
[2021-08-24] MEDS ORDERED: ALLA266C2 TP (08:21)
--- NOTE | 2021-08-24 08:46 | NUR ---
Attestation: On the admission for August 23, 2021, the patient was admitted to [facility], pt was currently residing at [facility]. Pt was on a 5150 hold due to being aggressive at his facility and was for danger to self and GD. Patient was admitted to the Medical Floor for pneumonia. Pt is currently on a 5250 ghold and patient was readmitted to [facility] on August 23, 2021. Patient appears to be labile, confused and disorganized. Patient's son Roman ([phone]) is involved in pt's care and would want pt back to [facility]. animal control licensing worker spoke with Meg and Linda from [facility] and they stated pt is welcomed back.
[2021-08-24] MEDS ORDERED: CRANBERRY EXT/C/L. SPOROGENES 405 MG/TAB TABLET PO SCH ×2 (09:00)
[2021-08-24] MEDS: ASCORBIC ACID 500 MG TABLET PO SCH (09:56)
[2021-08-24] MEDS: GABAPENTIN 100 MG CAPSULE PO SCH ×2 (09:57→18:05)
[2021-08-24] MEDS: CHOLECALCIFEROL 1,000 UNIT TABLET (VIT D3) PO SCH (09:57)
[2021-08-24] MEDS: ENOXAPARIN SODIUM 40 MG/0.4 ML DISP.SYRIN SQ SCH (09:59)
--- NOTE | 2021-08-24 10:00 | NUR ---
HEP LOCK REMOVED.
[2021-08-24] MEDS: PANTOPRAZOLE 40 MG TABLET.DR PO SCH (10:04)
[2021-08-24] MEDS ORDERED: QUETIAPINE FUMARATE 25 MG TABLET PO SCH (11:00)
[2021-08-24] MEDS ORDERED: Z GUARD REMEDY 2 OZ OINT TP PRN (11:00)
[2021-08-24] MEDS ORDERED: RISPERIDONE 0.25 MG PO SCH (13:00)
[2021-08-24] MEDS: DOCUSATE SODIUM 100 MG CAPSULE PO SCH ×2 (14:21→18:05)
[2021-08-24] MEDS: POLYETHYLENE GLYCOL 3350 17 GM POWD.PACK PO SCH ×2 (14:21→21:21)
[2021-08-24] MEDS: risperiDONE 1 MG TABLET PO SCH ×2 (14:37→18:05)
[2021-08-24 16:00] VITALS: BP 116/72
--- NOTE | 2021-08-24 19:03 | NUR ---
quiet,cooperative,med compliant.keeps to self in rm. most of day.
[2021-08-24 20:00] VITALS: BP 118/53
[2021-08-24] MEDS: TEMAZEPAM 7.5 MG CAPSULE PO PRN (21:21)
[2021-08-24] MEDS: MIRTAZAPINE 15 MG TABLET PO SCH (21:22)
[2021-08-25] MEDS: ENSURE ENLIVE 237 ML LIQUID (VANILLA) PO SCH ×2 (07:48→16:07)
[2021-08-25 08:00] VITALS: BP 124/64
[2021-08-25] MEDS: ASCORBIC ACID 500 MG TABLET PO SCH (08:24)
[2021-08-25] MEDS: CHOLECALCIFEROL 1,000 UNIT TABLET (VIT D3) PO SCH (08:24)
[2021-08-25] MEDS: DOCUSATE SODIUM 100 MG CAPSULE PO SCH ×2 (08:24→16:07)
[2021-08-25] MEDS: PANTOPRAZOLE 40 MG TABLET.DR PO SCH (08:24)
[2021-08-25] MEDS: GABAPENTIN 100 MG CAPSULE PO SCH ×2 (08:24→16:07)
[2021-08-25] MEDS: risperiDONE 1 MG TABLET PO SCH ×2 (08:24→16:09)
[2021-08-25] MEDS: ENOXAPARIN SODIUM 40 MG/0.4 ML DISP.SYRIN SQ SCH (08:27)
[2021-08-25 11:21] LABS: BASOPHILS # (AUTO) 0.1 K/uL (0.0-0.2); BASOPHILS % (AUTO) 0.8 % (0.0-2.0); EOSINOPHILS % (AUTO) 4.8 % (0.0-6.0); HEMATOCRIT 37 % (39-51); HEMOGLOBIN 12.5 g/dL (13.5-17.5); LYMPHOCYTES # (AUTO) 1.1 K/uL (0.8-4.8); LYMPHOCYTES % (AUTO) 14.9 % (20.0-44.0); MEAN CORPUSCULAR HGB CONC 34 g/dl (31.0-36.0); MEAN CORPUSCULAR VOLUME 94 fL (80-96); MONOCYTES # (AUTO) 1.1 K/uL (0.1-1.30); MONOCYTES % (AUTO) 14.6 % (2.0-12.0); NEUTROPHILS # (AUTO) 4.8 K/uL (1.8-8.9); NEUTROPHILS % (AUTO) 64.9 % (43.0-81.0); PLATELET COUNT (AUTO) 158 K/uL (150-450); RED BLOOD CELL COUNT(AUTO) 3.98 MIL/uL (4.5-6.0); WHITE BLOOD COUNT (AUTO) 7.3 K/uL (4.3-11.0)
[2021-08-25 11:38] LABS: ALBUMIN 3.2 g/dL (3.4-5.0); BILIRUBIN,TOTAL 0.4 mg/dL (0.2-1.0); CALCIUM, SERUM 9.4 mg/dL (8.5-10.1); CREATININE 1.3 mg/dL (0.6-1.3); POTASSIUM 4.1 mmol/L (3.5-5.1)
--- NOTE | 2021-08-25 14:13 | NUR ---
Court Hearing: Patient's court hearing for 0500 was today and it was upheld for GD.
[2021-08-25 16:00] VITALS: BP 102/58
[2021-08-25 20:00] VITALS: BP 123/67
[2021-08-25] MEDS: POLYETHYLENE GLYCOL 3350 17 GM POWD.PACK PO SCH (20:54)
[2021-08-25] MEDS: MIRTAZAPINE 15 MG TABLET PO SCH (20:55)
[2021-08-25] MEDS ORDERED: TAMSULOSIN 0.4 MG CAP.SR.24H PO SCH (22:00)
[2021-08-26 08:00] VITALS: BP 133/69
[2021-08-26] MEDS: ENSURE ENLIVE 237 ML LIQUID (VANILLA) PO SCH (08:09)
[2021-08-26] MEDS: ENOXAPARIN SODIUM 40 MG/0.4 ML DISP.SYRIN SQ SCH (08:10)
--- NOTE | 2021-08-26 08:11 | NUR ---
SW Discharge Note: Patient will be discharged to a locked prison facility to [facility] [address] [place] [address]; ([phone]). Please arrange ambulance transportation. Electrical Engineering Technician spoke with Linda, Rocket Engine Tester at [facility]; ([phone]), who stated patient will be accepted at facility today. Patient is alert and oriented x1, and is not able to plan for self-care at this time, but is willing to accept care provided at the facility. Patient denies any suicidal or homicidal ideations. Patient is aware and agreeable with discharge plans. Patients son Roman ([phone]) is aware and agreeable. Patient will continue to follow-up with her (Psychiatrist) Dr. Pina located at [id number] [place] [id number]; ([phone]) and Spring [address] Dr. Rodríguez [address] [address]; ([phone]). Patient presents with euthymic mood and congruent affect.
[2021-08-26] MEDS: DOCUSATE SODIUM 100 MG CAPSULE PO SCH (08:28)
[2021-08-26] MEDS: PANTOPRAZOLE 40 MG TABLET.DR PO SCH (08:28)
[2021-08-26] MEDS: ASCORBIC ACID 500 MG TABLET PO SCH (08:29)
[2021-08-26] MEDS: risperiDONE 1 MG TABLET PO SCH (08:29)
[2021-08-26] MEDS: CHOLECALCIFEROL 1,000 UNIT TABLET (VIT D3) PO SCH (08:29)
[2021-08-26] MEDS: GABAPENTIN 100 MG CAPSULE PO SCH (08:29)
[2021-08-26] MEDS ORDERED: MUPIROCIN OINT 2% 22 GM TUBE NS SCH (09:00)
--- NOTE | 2021-08-26 10:16 | NUR ---
Dr. Suarez gave an order to D/C karine and D/C to [facility], to continue same meds including prn and to follow up with psych and medical doctors. Addendum: 08/26/21 at 1017 by CESAR GILL RN Alondra HENNING made aware of the discharge and reconciled the meds.
--- NOTE | 2021-08-26 13:11 | NUR ---
GPS/RN REPORT GIVEN TO [facility] ISAIAH WARD.
--- NOTE | 2021-08-26 14:25 | NUR ---
GPS/RN PT DISCHARGED TO [facility] VIA AMBULANCE. NO SI OR HI AT THE TIME OF DISCHARGE REPORTED. EXIT CARE INSTRUCTIONS AND PRESCRIPTIONS PROVIDED.PT REFUSED TO SIGN THE D/C PAPERWORK. PROPERTY RETURNED. VSS
== END 2021-08-26 14:25 | DRG 885 ==
LOC: GPS 19:19
PROVIDERS: ADMIT Psychiatry & Neurology Psychiatry; ATTEND Registered Nurse
DX: F25.9 Schizoaffective disorder, unspecified (principal); N17.9 Acute kidney failure, unspecified; J18.9 Pneumonia, unspecified organism; F03.91 Unspecified dementia, unspecified severity, with behavioral disturbance; F31.9 Bipolar disorder, unspecified; E03.9 Hypothyroidism, unspecified; E78.5 Hyperlipidemia, unspecified; I10 Essential (primary) hypertension; K59.00 Constipation, unspecified; Z20.822 Contact with and (suspected) exposure to COVID-19; F29 Unspecified psychosis not due to a substance or known physiological condition; Z73.6 Limitation of activities due to disability
CPT/HCPCS: 36415; 80053-TC; 80061-TC; 85025-TC; 87081-TC; 97116-TC; 97530-TC; J1650

== ENCOUNTER 2021-10-19 15:22 | Emergency (ER) | payer MEDICARE, OTHER ==
[~2021-10-19] VITALS: Ht 170.2 cm; Wt 79.4 kg
[~2021-10-19 15:22] MED LIST changes: +ALLA266C2 TP; -CRAN450C PO; +ENOX40DI SQ; +GABA-532 PO; +PANT40TA49 PO; +QUET25TA PO; +RISP0.5T5 PO; -quercetin PO
--- NOTE | 2021-10-19 15:42 | NUR ---
DARIUS CHAU FROM CARE FACILITY,MORE ALTERED THAN NORMAL SINCE 1250,NORMALLY HE WOULD SAY "HI" WHEN NURSES SAY "HI". THE PATIENT IS ALERT AND ORIENTED X1. ABLE TO MAKE NEEDS KNOWN VERBALLY. IN ROOM AIR AND DENIES SOB. RESPIRATION REGULAR AND UNLABORED. ATTACHED TO THE MONITOR. WARM BLANKET PROVIDED. WILL CONTINUE TO MONITOR THE PATIENT.
[2021-10-19] MEDS ORDERED: DOCU-141 PO (16:08)
[2021-10-19] MEDS ORDERED: RISP0.2515 PO (16:08)
[2021-10-19] MEDS ORDERED: TAMS-12 PO (16:08)
[2021-10-19] MEDS ORDERED: MAG30ORA PO (16:08)
[2021-10-19] MEDS ORDERED: ACET-2605 PO (16:08)
[2021-10-19] MEDS ORDERED: MIRT-90 PO (16:08)
--- NOTE | 2021-10-19 16:11 | NUR ---
STARTED IV LINE, BLOOD SPECIMEN COLLECTED AND SENT TO THE LAB. THE LINE IS SALINE LOCKED.
[2021-10-19] MEDS ORDERED: VANCOMYCIN 1 GM in IV D5W 250 ML IV ONE (16:30)
[2021-10-19] MEDS ORDERED: PIPERACILLIN /TAZOBACTAM 3.375 G in IV D5W 50 ML IV ONE (16:30)
--- NOTE | 2021-10-19 16:37 | NUR ---
THE PATIENT IS TAKEN TO CT
[2021-10-19 16:40] LABS: BASOPHILS # (AUTO) 0.1 K/uL (0.0-0.2); BASOPHILS % (AUTO) 1.2 % (0.0-2.0); EOSINOPHILS % (AUTO) 3.8 % (0.0-6.0); HEMATOCRIT 40 % (39-51); HEMOGLOBIN 13.4 g/dL (13.5-17.5); LYMPHOCYTES # (AUTO) 1.6 K/uL (0.8-4.8); LYMPHOCYTES % (AUTO) 33.5 % (20.0-44.0); MEAN CORPUSCULAR HGB CONC 33 g/dl (31.0-36.0); MEAN CORPUSCULAR VOLUME 93 fL (80-96); MONOCYTES # (AUTO) 0.7 K/uL (0.1-1.30); MONOCYTES % (AUTO) 14.1 % (2.0-12.0); NEUTROPHILS # (AUTO) 2.3 K/uL (1.8-8.9); NEUTROPHILS % (AUTO) 47.4 % (43.0-81.0); PLATELET COUNT (AUTO) 114 K/uL (150-450); RED BLOOD CELL COUNT(AUTO) 4.36 MIL/uL (4.5-6.0); WHITE BLOOD COUNT (AUTO) 4.9 K/uL (4.3-11.0)
--- NOTE | 2021-10-19 16:50 | NUR ---
THE PATIENT IS BACK FROM CT
--- NOTE | 2021-10-19 17:01 | NUR ---
THE PATIENT DOES NOT FEEL THE URGE TO URINATE. DR CHANCE MADE AWARE. NO NEED TO DO IN AND OUT PER DR CHANCE.
--- NOTE | 2021-10-19 17:02 | NUR ---
PER DR CHANCE ORDERED ZOSYN NOT TO BE ADMINISTERED.
[2021-10-19 17:10] LABS: ALANINE AMINOTRANSFERASE 13 U/L (12-78); ALBUMIN 3.4 g/dL (3.4-5.0); ALKALINE PHOSPHATASE 80 U/L (46-116); ASPARTATE AMINOTRANSFERASE 21 U/L (15-37); BILIRUBIN,DIRECT 0.1 mg/dL (0.0-0.2); BILIRUBIN,TOTAL 0.3 mg/dL (0.2-1.0); CALCIUM, SERUM 8.8 mg/dL (8.5-10.1); CARBON DIOXIDE 26 mmol/L (21-32); CHLORIDE 106 mmol/L (98-107); CREATININE 1.4 mg/dL (0.6-1.3); GLUCOSE 88 mg/dL (74-106); POTASSIUM 3.9 mmol/L (3.5-5.1); SODIUM SERUM 140 mmol/L (136-145); TOTAL PROTEIN, SERUM 7.4 g/dL (6.4-8.2); UREA NITROGEN, BLOOD 18 mg/dL (7-18)
--- NOTE | 2021-10-19 17:44 | NUR ---
CALLED [facility] FOR TRANSPORT ETA 45 MINS PER BROOKE
--- NOTE | 2021-10-19 18:23 | NUR ---
REPORT GIVEN TO NURSE COTTRELL FROM [facility].
[2021-10-19 18:26] VITALS: BP 131/74
--- NOTE | 2021-10-19 18:26 | NUR ---
REPORT GIVEN TO AMBULANCE STAFF. THE PATIENT IS DISCHARGED TO [facility] IN STABLE CONDITION.
== END 2021-10-19 18:27 ==
LOC: ER 15:30
DX: F03.90 Unspecified dementia, unspecified severity, without behavioral disturbance, psychotic disturbance, mood disturbance, and anxiety (principal); D64.9 Anemia, unspecified; D69.6 Thrombocytopenia, unspecified; I10 Essential (primary) hypertension; I25.10 Atherosclerotic heart disease of native coronary artery without angina pectoris; E78.5 Hyperlipidemia, unspecified; F25.9 Schizoaffective disorder, unspecified; E78.00 Pure hypercholesterolemia, unspecified; F17.200 Nicotine dependence, unspecified, uncomplicated; Z79.899 Other long term (current) drug therapy
CPT/HCPCS: 36415; 70450-TC; 71045-TC; 80048-TC; 80076-TC; 85025-TC; J2543; J3370; J7060

== ENCOUNTER 2022-11-07 21:35 | Emergency (ER) | payer MEDICARE, OTHER ==
[~2022-11-07] VITALS: Ht 170.2 cm; Wt 70.3 kg
[~2022-11-07 21:35] MED LIST changes: +ACET-2605 PO; -ALBU2.5V13 IH; -ALLA266C2 TP; +DOCU-141 PO; -ENOX40DI SQ; -IPRA0.2S9 IH; -LACT-246 PO; +MIRT-90 PO; -QUET25TA PO; +RISP0.2515 PO; -RISP0.5T5 PO; +TAMS-12 PO
--- NOTE | 2022-11-07 21:50 | NUR ---
TO ER BED 10. HAYES FROM [facility] FOR UNWITNESSED GLF +LAC BACK OF HEAD. - KO. PT IS ALERT. RR EVEN AND NON LABORED. CONNECTED TO MONITOR. SAFETY PRECAUTIONS IN PLACE. AWAITING MD QIU
[2022-11-07] MEDS ORDERED: TDAP [DIPH/PERTUSSIS/TET] 0.5 ML VIAL IM ONE ×2 (22:00→22:21)
--- NOTE | 2022-11-07 22:10 | NUR ---
SUZETTE DODD AT BEDSIDE FOR EKG
--- NOTE | 2022-11-07 22:33 | NUR ---
URINE SPECIMEN COLLECTED AND SENT TO LAB.
--- NOTE | 2022-11-07 22:34 | NUR ---
PT TAKEN TO CT VIA [facility]
--- NOTE | 2022-11-07 22:59 | NUR ---
PT BACK FROM CT SCAN
[2022-11-07 23:02] LABS: BASOPHILS % (AUTO) 0.6 % (0.0-2.0); EOSINOPHILS % (AUTO) 4.3 % (0.0-6.0); HEMATOCRIT 40 % (39-51); HEMOGLOBIN 13.3 g/dL (13.5-17.5); LYMPHOCYTES # (AUTO) 1.3 K/uL (0.8-4.8); MEAN CORPUSCULAR HGB CONC 33 g/dl (31.0-36.0); MEAN CORPUSCULAR VOLUME 93 fL (80-96); MONOCYTES # (AUTO) 0.7 K/uL (0.1-1.30); MONOCYTES % (AUTO) 13.9 % (2.0-12.0); NEUTROPHILS # (AUTO) 3.1 K/uL (1.8-8.9); NEUTROPHILS % (AUTO) 57.2 % (43.0-81.0); PLATELET COUNT (AUTO) 136 K/uL (150-450); RED BLOOD CELL COUNT(AUTO) 4.33 MIL/uL (4.5-6.0); WHITE BLOOD COUNT (AUTO) 5.4 K/uL (4.3-11.0)
[2022-11-07 23:14] LABS: CALCIUM, SERUM 9.5 mg/dL (8.5-10.1); CARBON DIOXIDE 28 mmol/L (21-32); CHLORIDE 110 mmol/L (98-107); CREATININE 1.3 mg/dL (0.6-1.3); GLUCOSE 92 mg/dL (74-106); SODIUM SERUM 144 mmol/L (136-145); UREA NITROGEN, BLOOD 21 mg/dL (7-18)
[2022-11-07 23:28] LABS: ALANINE AMINOTRANSFERASE 11 U/L (12-78); ALBUMIN 3.2 g/dL (3.4-5.0); ALKALINE PHOSPHATASE 63 U/L (46-116); ASPARTATE AMINOTRANSFERASE 23 U/L (15-37); BILIRUBIN,DIRECT 0.1 mg/dL (0.0-0.2); BILIRUBIN,TOTAL 0.3 mg/dL (0.2-1.0); TOTAL PROTEIN, SERUM 7.4 g/dL (6.4-8.2)
[2022-11-07 23:29] LABS: BILIRUBIN,URINE NEGATIVE (NEGATIVE); COLOR,URINE DARK YELLOW (YELLOW); LEUKOCYTE ESTERASE ,URINE 3+ (NEGATIVE); NITRITE, URINE POSITIVE (NEGATIVE); PH,URINE 6.5 (5.0-8.0); PROTEIN,URINE NEGATIVE (NEGATIVE); UGLUCOSE NEGATIVE (NEGATIVE); UROBILINOGEN,URINE 0.2 EU/dL (0.2)
[2022-11-07 23:31] LABS: BACTERIA,URINE Few /HPF (None Seen); RBC,URINE 0-2 /HPF (0-2); SQUAMOUS EPITHELIAL CELL,UR Rare /HPF (None Seen); WBC,URINE 21-50 /HPF (0-3)
[2022-11-07] MEDS ORDERED: CEPH500C2 PO (23:42)
--- NOTE | 2022-11-08 00:07 | NUR ---
medically clear for d/c. report given to Tam. IRENE in one hour
--- NOTE | 2022-11-08 00:37 | NUR ---
[facility] AT BED SIDE TO FACTORY FOCUS TECHNICIAN THE PT
[2022-11-08 01:21] VITALS: BP 138/76
== END 2022-11-08 01:21 ==
LOC: ER 21:41
DX: N39.0 Urinary tract infection, site not specified (principal); R51.9 Headache, unspecified; R41.82 Altered mental status, unspecified; M54.2 Cervicalgia; I10 Essential (primary) hypertension; F17.200 Nicotine dependence, unspecified, uncomplicated; E78.00 Pure hypercholesterolemia, unspecified; Z85.038 Personal history of other malignant neoplasm of large intestine; Z79.899 Other long term (current) drug therapy
CPT/HCPCS: 36415; 70450-TC; 72125-TC; 80048-TC; 80076-TC; 81001; 84484-TC; 85025-TC; 87086-TC; 90715

== ENCOUNTER 2022-12-15 21:15 | Inpatient (IN) | payer MEDICARE, OTHER ==
[~2022-12-15] VITALS: Ht 177.8 cm; Wt 78.0 kg
[~2022-12-15 21:15] MED LIST changes: +CEPH500C2 PO
--- NOTE | 2022-12-15 22:48 | NUR ---
BOOT LINER MAKER AT PT'S BEDSIDE
--- NOTE | 2022-12-15 22:50 | NUR ---
RUSSEL FROM SNF TO ER BED 13. AAOX1. NOT IN ANY DISTRESS. SENT BY THE FACILITY FOR GENERALIZED WEAKNESS AND LETHARGY. PER REPORT, PT WAS NOT TALKING AND DID NOT WALK TO WHEN WHEN HE IS USUALLY WALKING AROUND THE FACILITY. WAS AT THE BEDSIDE FOR EVAL. ORDERS RECEIVED, NOTED AND CARRIED OUT.
--- NOTE | 2022-12-15 23:06 | NUR ---
URINE COLLECTED AND SENT TO LAB
[2022-12-15 23:07] LABS: BASOPHILS % (AUTO) 0.4 % (0.0-2.0); EOSINOPHILS % (AUTO) 2.5 % (0.0-6.0); HEMATOCRIT 38 % (39-51); HEMOGLOBIN 12.6 g/dL (13.5-17.5); LYMPHOCYTES # (AUTO) 1.4 K/uL (0.8-4.8); LYMPHOCYTES % (AUTO) 25.8 % (20.0-44.0); MEAN CORPUSCULAR HGB CONC 33 g/dl (31.0-36.0); MEAN CORPUSCULAR VOLUME 93 fL (80-96); MONOCYTES # (AUTO) 0.7 K/uL (0.1-1.30); MONOCYTES % (AUTO) 13.4 % (2.0-12.0); NEUTROPHILS # (AUTO) 3.1 K/uL (1.8-8.9); NEUTROPHILS % (AUTO) 57.9 % (43.0-81.0); PLATELET COUNT (AUTO) 162 K/uL (150-450); RED BLOOD CELL COUNT(AUTO) 4.14 MIL/uL (4.5-6.0); WHITE BLOOD COUNT (AUTO) 5.3 K/uL (4.3-11.0)
[2022-12-15 23:19] LABS: CALCIUM, SERUM 9.6 mg/dL (8.5-10.1); CARBON DIOXIDE 27 mmol/L (21-32); CHLORIDE 107 mmol/L (98-107); CREATININE 1.3 mg/dL (0.6-1.3); GLUCOSE 85 mg/dL (74-106); POTASSIUM 4.1 mmol/L (3.5-5.1); SODIUM SERUM 141 mmol/L (136-145); UREA NITROGEN, BLOOD 23 mg/dL (7-18)
[2022-12-15 23:27] LABS: ALANINE AMINOTRANSFERASE 15 U/L (12-78); ALBUMIN 3.2 g/dL (3.4-5.0); ALKALINE PHOSPHATASE 76 U/L (46-116); ASPARTATE AMINOTRANSFERASE 26 U/L (15-37); BILIRUBIN,DIRECT 0.1 mg/dL (0.0-0.2); BILIRUBIN,TOTAL 0.3 mg/dL (0.2-1.0); TOTAL PROTEIN, SERUM 7.2 g/dL (6.4-8.2)
--- NOTE | 2022-12-15 23:55 | NUR ---
SISSY MARLOW AT PT'S BEDSIDE FOR EVAL
[2022-12-16 00:07] LABS: BILIRUBIN,URINE NEGATIVE (NEGATIVE); COLOR,URINE YELLOW (YELLOW); LEUKOCYTE ESTERASE ,URINE NEGATIVE (NEGATIVE); NITRITE, URINE NEGATIVE (NEGATIVE); PH,URINE 6.5 (5.0-8.0); PROTEIN,URINE NEGATIVE (NEGATIVE); UGLUCOSE NEGATIVE (NEGATIVE); UROBILINOGEN,URINE 0.2 EU/dL (0.2)
[2022-12-16 00:12] LABS: BACTERIA,URINE Rare /HPF (None Seen); RBC,URINE 0-2 /HPF (0-2); SQUAMOUS EPITHELIAL CELL,UR Few /HPF (None Seen); WBC,URINE 0-2 /HPF (0-3)
--- NOTE | 2022-12-16 00:22 | NUR ---
MRSA SWAB COLLECTED AND SENT TO LAB. PATIENT'S BELONGINGS LIST DONE.
[2022-12-16] MEDS ORDERED: NA PHOS,M-B/NA PHOS,DI-BA 1 EA ENEMA RC PRN (00:30)
[2022-12-16] MEDS ORDERED: MAG HYDROX/AL HYDROX/SIMETH 30 ML UDC PO PRN ×2 (00:30)
[2022-12-16] MEDS ORDERED: ZOLPIDEM TARTRATE 5 MG TABLET PO PRN (00:30)
[2022-12-16] MEDS ORDERED: MAGNESIUM HYDROXIDE 30 ML UDC PO PRN ×2 (00:30)
[2022-12-16] MEDS ORDERED: SENNOSIDES 8.6 MG TABLET PO PRN (00:30)
[2022-12-16] MEDS ORDERED: ONDANSETRON HCL/PF 4 MG/2 ML VIAL IVP PRN (00:30)
[2022-12-16] MEDS ORDERED: ACETAMINOPHEN 325 MG TABLET PO PRN ×2 (00:30)
[2022-12-16] MEDS ORDERED: ACETAMINOPHEN ES 500 MG TABLET PO PRN (00:30)
[2022-12-16] MEDS ORDERED: Z GUARD REMEDY 4 OZ OINT TP PRN (00:30)
--- NOTE | 2022-12-16 01:04 | NUR ---
HAT FORMING MACHINE OPERATOR AT PT'S BEDSIDE
--- NOTE | 2022-12-16 01:04 | NUR ---
L WRIST #18G S/L; BLOOD COLLECTED AND SENT TO LAB
--- NOTE | 2022-12-16 01:19 | NUR ---
REPORT GIVEN TO MARKO Lara RN FOR DARNELL
--- NOTE | 2022-12-16 01:36 | NUR ---
LWRIST #18G S/L DISLODGED. IV R WRIST #18G S/L PATENT AND INTACT
--- NOTE | 2022-12-16 02:48 | NUR ---
TRANSFERRED PT TO ROOM VIA ACLS PROTOCOL
[2022-12-16 02:50] VITALS: BP 128/55
--- NOTE | 2022-12-16 02:50 | NUR ---
RN RECEIVING PATIENT FROM ER NOTE PATIENT ARRIVED TO UNIT STABLE FROM ER. PATIENT A/OX0, NON-VERBAL. NO S/S OF DISTRESS, BREATHING WITHOUT DIFFICULTY ON ROOM AIR. R-WRIST #18 INTACT AND PATENT. NO PAIN NOTED AT THIS TIME USING FLACC SCALE. VS WNL. PATIENT WAS ORIENTED TO THE UNIT. PATIENT GIVEN CALL ALVES AND INSTRUCTED ON ITS USE. PATIENT'S BELONGINGS ACCOUNTED FOR, LOGGED INTO SHEET, AND PLACED IN CHART. SAFETY MEASURES IN PLACE: BED LOCKED AND AT LOWEST POSITION, RAILS UP X2, CALL ALVES WITHIN REACH. WILL CONTINUE TO MONITOR PATIENT.
[2022-12-16 04:36] VITALS: BP 128/55
[2022-12-16] MEDS: IV NS 0.9% 1,000 ML IV PRN ×2 (04:55→18:20)
--- NOTE | 2022-12-16 06:38 | NUR ---
RN CLOSING NOTE PATIENT ASLEEP IN BED. A/OX0, NON-VERBAL. NO S/S OF DISTRESS, BREATHING WITHOUT DIFFICULTY ON ROOM AIR. R-WRIST #18 INTACT AND PATENT W/ NS 100ML/HR. SAFETY MEASURES IN PLACE: BED LOCKED AND AT LOWEST POSITION, RAILS UP X2, CALL ALVES WITHIN REACH. WILL CONTINUE TO MONITOR PATIENT.
--- NOTE | 2022-12-16 06:52 | NUR ---
RN NOTE CONTACTED [facility] ([phone]). SPOKE W/ SYLVIA ALLEN, FOR [employer] RECORDS: *PNA *COVID *FLU SON, BRIAN ([phone]), CONTACTED. LEFT VOICE MESSAGE LETTING SON KNOW OF PATIENT'S BEING HERE AT [facility]. PATIENT STABLE; WILL CONTINUE TO MONITOR PATIENT.
--- NOTE | 2022-12-16 07:15 | NUR ---
MS RN OPENING NOTES RECEIVED PATIENT AWAKE IN BED WITH HOB ELEVATED. A/OX2-3, ABLE TO MAKE NEEDS KNOWN, NOT SHOWING ANY S/S OF DISTRESS, ON ROOM AIR, BREATHING WITHOUT DIFFICULTY. IV ACCESS ON R-WRIST #18 INTACT AND PATENT WITH RUNNING S 100ML/HR. PATIENT IS ASKING FOR FOOD BUT ON NPO. WILL CONDUCT NURSING SWALLOW ASSESSMENT FOR SAFETY. SAFETY MEASURES IN PLACE: BED LOCKED AND AT LOWEST POSITION, RAILS UP X2, CALL LIGHT AND TRAY TABLE WITHIN EASY REACH. WILL CONTINUE TO MONITOR PATIENT.
[2022-12-16 08:00] VITALS: BP 107/50
--- NOTE | 2022-12-16 09:00 | NUR ---
RN NOTES - PT WAS ABLE TO TOLERATE PT THERAPY TODAY
--- NOTE | 2022-12-16 09:30 | NUR ---
RN NOTES - PATIENT SUCCESSFULLY PASSED ALL NURSING SWALLOW EVALUATION ASSESSMENT, TOLERATED WELL WITHOUT COUGHING. CHANGED DIET TO PUREED PER MD RECOMMENDATION.
[2022-12-16] MEDS: PANTOPRAZOLE 40 MG TABLET.DR PO SCH (09:50)
[2022-12-16] MEDS: ASCORBIC ACID 500 MG TABLET PO SCH (09:51)
[2022-12-16] MEDS: GABAPENTIN 100 MG CAPSULE PO SCH ×2 (09:51→16:08)
[2022-12-16] MEDS: DOCUSATE SODIUM 100 MG CAPSULE PO SCH ×2 (09:51→16:08)
[2022-12-16] MEDS: CHOLECALCIFEROL 1,000 UNIT TABLET (VIT D3) PO SCH (09:51)
[2022-12-16 16:00] VITALS: BP 123/64
--- NOTE | 2022-12-16 19:30 | NUR ---
MS RN OPENING NOTES RECEIVED PATIENT IN BED WATCHING TV, AWAKE AND ALERT WITH HOB. A/O X 2-3. ON ROOM AIR, BREATHING EVEN AND UNLABORED. NO DISTRESS OR SHORTNESS OF BREATH NOTED. NO S/S OF PAIN NOTED AT THIS TIME. IV ACCESS ON R-WRIST #18G INTACT AND PATENT WITH NS RUNNING @ 100ML/HR. SAFETY MEASURES GIVEN WITH BED ON LOWEST AND LOCKED POSITION. SIDE RAILS UP X2. CALL LIGHT AND TRAY TABLE WITHIN EASY REACH. WILL CONTINUE WITH THE PLAN OF CARE.
--- NOTE | 2022-12-16 19:33 | NUR ---
MS RN CLOSING NOTES PATIENT AWAKE IN BED WITH HOB ELEVATED WATCHING TV. A/OX2, NOT SHOWING ANY S/S OF DISTRESS, STILL ON ROOM AIR, BREATHING WITHOUT DIFFICULTY. IV ACCESS ON R-WRIST #18 INTACT AND PATENT WITH RUNNING S 100ML/HR. ALL NEEDS MED, ALL DUE MEDS GIVEN. SAFETY MEASURES MAINTAINED: BED LOCKED AND AT LOWEST POSITION, RAILS UP X2, CALL LIGHT AND TRAY TABLE WITHIN EASY REACH. ENDORSED TO PRODUCT CRAFTSMAN NURSE;
[2022-12-16 20:00] VITALS: BP 136/75
[2022-12-16] MEDS: MIRTAZAPINE 15 MG TABLET PO SCH (21:06)
[2022-12-16] MEDS: TAMSULOSIN 0.4 MG CAP.SR.24H PO SCH (21:06)
--- NOTE | 2022-12-16 23:50 | NUR ---
RN NOTES PATIENT IS STILL WATCHING TV. CHANGED DIAPER. NO S/S OF DISTRESS NOTED. WILL CONTINUE TO MONITOR.
[2022-12-17] MEDS: IV NS 0.9% 1,000 ML IV PRN (04:11)
--- NOTE | 2022-12-17 06:51 | NUR ---
MS RN CLOSING NOTES PATIENT IN BED WATCHING TV, AWAKE AND ALERT WITH HOB. A/O X 2-3. ON ROOM AIR, BREATHING EVEN AND UNLABORED. NO DISTRESS OR SHORTNESS OF BREATH NOTED. NO S/S OF PAIN NOTED AT THIS TIME. IV ACCESS ON R-WRIST #18G INTACT AND PATENT WITH NS RUNNING @ 100ML/HR. PM CARE DONE AND CHANGED DIAPER TWICE DURING SHIFT. SAFETY MEASURES GIVEN WITH BED ON LOWEST AND LOCKED POSITION. SIDE RAILS UP X2. CALL LIGHT AND TRAY TABLE WITHIN EASY REACH. WILL ENDORSE TO THE NEXT SHIFT.
[2022-12-17 07:00] LABS: BASOPHILS % (AUTO) 0.5 % (0.0-2.0); EOSINOPHILS % (AUTO) 3.2 % (0.0-6.0); HEMATOCRIT 38 % (39-51); HEMOGLOBIN 12.4 g/dL (13.5-17.5); LYMPHOCYTES # (AUTO) 1.4 K/uL (0.8-4.8); LYMPHOCYTES % (AUTO) 27.7 % (20.0-44.0); MEAN CORPUSCULAR HGB CONC 33 g/dl (31.0-36.0); MEAN CORPUSCULAR VOLUME 94 fL (80-96); MONOCYTES # (AUTO) 0.8 K/uL (0.1-1.30); MONOCYTES % (AUTO) 15.2 % (2.0-12.0); NEUTROPHILS # (AUTO) 2.7 K/uL (1.8-8.9); NEUTROPHILS % (AUTO) 53.4 % (43.0-81.0); PLATELET COUNT (AUTO) 154 K/uL (150-450); RED BLOOD CELL COUNT(AUTO) 4.06 MIL/uL (4.5-6.0)
[2022-12-17 07:20] LABS: CALCIUM, SERUM 9.3 mg/dL (8.5-10.1); CARBON DIOXIDE 25 mmol/L (21-32); CHLORIDE 108 mmol/L (98-107); CREATININE 1.4 mg/dL (0.6-1.3); GLUCOSE 85 mg/dL (74-106); MAGNESIUM 2.1 mg/dL (1.8-2.4); PHOSPHORUS 3.3 mg/dL (2.5-4.9); POTASSIUM 3.9 mmol/L (3.5-5.1); SODIUM SERUM 142 mmol/L (136-145); UREA NITROGEN, BLOOD 16 mg/dL (7-18)
--- NOTE | 2022-12-17 07:25 | NUR ---
MS RN OPENING NOTES RECEIVED PT IN BED, AWAKE. A/O X 2-3. ON ROOM AIR, BREATHING EVEN AND UNLABORED. NO SIGNS OF ACUTE RESPIRATORY DISTRESS. NO C/O OF PAIN AND DISCOMFORT AT THIS TIME. IV ACCESS ON R-WRIST #18G REMOVED BY PT AND REFUSED TO BE INSERTED. PT VERBALLY ABUSIVE. SAFETY MEASURES IN PLACE: BED ON LOWEST AND LOCKED POSITION, SIDE RAILS UP X 3, CALL LIGHT AND TRAY TABLE WITHIN EASY REACH. WILL CONTINUE TO MONITOR.
[2022-12-17] MEDS: PANTOPRAZOLE 40 MG TABLET.DR PO SCH (07:30)
[2022-12-17 07:33] LABS: THYROID STIMULATING HORMONE 2.134 uIU/mL (0.358-3.74)
[2022-12-17 08:00] VITALS: BP 153/69
[2022-12-17] MEDS: CHOLECALCIFEROL 1,000 UNIT TABLET (VIT D3) PO SCH (08:46)
[2022-12-17] MEDS: ASCORBIC ACID 500 MG TABLET PO SCH (08:46)
[2022-12-17] MEDS: DOCUSATE SODIUM 100 MG CAPSULE PO SCH ×2 (08:52→16:12)
[2022-12-17] MEDS: GABAPENTIN 100 MG CAPSULE PO SCH ×2 (08:53→16:12)
[2022-12-17 09:29] LABS: EOSINOPHILS % (MANUAL) 5 % (0-4); LYMPHOCYTES % (MANUAL) 28 % (16-48); MONOCYTES % (MANUAL) 10 % (0-11.0); NEUTROPHILS % (MANUAL) 57 (42-76)
--- NOTE | 2022-12-17 11:05 | NUR ---
RN NOTES EXPLAINED TO PT THAT I NEED TO INSERT IV ON HIM SO WE CAN CONTINUE WITH HIS IVF BUT STILL REFUSING. DR PRESTON MADE AWARE.
--- NOTE | 2022-12-17 16:35 | NUR ---
RN NOTES PT REFUSED HIS V/S TO BE TAKEN. PT ALSO REFUSED CHUX AND BEDDINGS CHANGE. PT ONLY ALLOW GOWN AND BLANKET CHANGED.
--- NOTE | 2022-12-17 18:47 | NUR ---
MS RN CLOSING NOTES PT RESTING IN BED. A/O X 2-3. ON ROOM AIR, TOLERATED WELL. NO SIGNS OF ACUTE RESPIRATORY DISTRESS. DID NOT C/O OF PAIN AND DISCOMFORT WITHIN THE SHIFT. ABLE TO MAKE NEEDS KNOWN. PT REFUSED IV INSERTION EVEN WITH FURTHER EDUCATION. SAFETY MEASURES IN PLACE: BED ON LOWEST AND LOCKED POSITION, SIDE RAILS UP X 3, CALL LIGHT AND TRAY TABLE WITHIN EASY REACH. NEEDS ATTENDED. WILL ENDORSE DARNELL TO LUMBER SORTER MACHINE.
--- NOTE | 2022-12-17 19:50 | NUR ---
MS RN OPENING NOTES RECEIVED PATIENT IN BED ASLEEP. EASILY BE AWAKEN BY VERBAL STIMULI. A/O X 2-3. ON ROOM AIR, BREATHING EVEN AND UNLABORED. NO DISTRESS OR SHORTNESS OF BREATH NOTED. NO S/S OF PAIN NOTED AT THIS TIME. SAFETY MEASURES GIVEN WITH BED ON LOWEST AND LOCKED POSITION. SIDE RAILS UP X2. CALL LIGHT AND TRAY TABLE WITHIN EASY REACH. WILL CONTINUE WITH THE PLAN OF CARE.
[2022-12-17 20:00] VITALS: BP 100/40
[2022-12-17] MEDS: MIRTAZAPINE 15 MG TABLET PO SCH ×2 (22:00→22:17)
[2022-12-17] MEDS: TAMSULOSIN 0.4 MG CAP.SR.24H PO SCH ×2 (22:00→22:17)
--- NOTE | 2022-12-17 23:00 | NUR ---
RN NOTES PATIENT REFUSED TO TAKE FLOMAX AND REMERON. WILL RETURN THE MEDICATIONS. PATIENT IS ARGUMENTATIVE. WILL CONTINUE TO MONITOR.
--- NOTE | 2022-12-18 05:30 | NUR ---
RN NOTES PATIENT REFUSED TO HAVE BLOOD DRAWN FOR LABS. WILL CONTINUE TO MONITOR.
--- NOTE | 2022-12-18 07:05 | NUR ---
RN OPENING NOTE- PT AWAKE IN BED, A/O X 2-3. ON ROOM AIR, BREATHING EVEN AND UNLABORED. NO DISTRESS OR SHORTNESS OF BREATH NOTED. NO S/S OF PAIN NOTED AT THIS TIME. SAFETY MEASURES GIVEN WITH BED ON LOWEST AND LOCKED POSITION. SIDE RAILS UP X2. MONITOR/ASSIST
--- NOTE | 2022-12-18 07:10 | NUR ---
MS RN CLOSING NOTES PATIENT IN BED ASLEEP. EASILY BE AWAKEN BY VERBAL STIMULI. A/O X 2-3. ON ROOM AIR, BREATHING EVEN AND UNLABORED. NO DISTRESS OR SHORTNESS OF BREATH NOTED. NO S/S OF PAIN NOTED AT THIS TIME. REFUSED SCHEDULED MEDICATIONS. SAFETY MEASURES GIVEN WITH BED ON LOWEST AND LOCKED POSITION. SIDE RAILS UP X2. CALL LIGHT AND TRAY TABLE WITHIN EASY REACH. WILL ENDORSE TO THE NEXT SHIFT FOR DARNELL..
[2022-12-18 08:00] VITALS: BP 122/64
[2022-12-18] MEDS: GABAPENTIN 100 MG CAPSULE PO SCH ×2 (08:14→16:32)
[2022-12-18] MEDS: ASCORBIC ACID 500 MG TABLET PO SCH (08:14)
[2022-12-18] MEDS: DOCUSATE SODIUM 100 MG CAPSULE PO SCH ×2 (08:14→16:32)
[2022-12-18] MEDS: CHOLECALCIFEROL 1,000 UNIT TABLET (VIT D3) PO SCH (08:14)
[2022-12-18] MEDS: PANTOPRAZOLE 40 MG TABLET.DR PO SCH (08:14)
[2022-12-18 09:22] LABS: BASOPHILS # (AUTO) 0.1 K/uL (0.0-0.2); BASOPHILS % (AUTO) 0.8 % (0.0-2.0); EOSINOPHILS % (AUTO) 3.5 % (0.0-6.0); HEMATOCRIT 39 % (39-51); HEMOGLOBIN 12.7 g/dL (13.5-17.5); LYMPHOCYTES # (AUTO) 1.3 K/uL (0.8-4.8); LYMPHOCYTES % (AUTO) 18.5 % (20.0-44.0); MEAN CORPUSCULAR HGB CONC 33 g/dl (31.0-36.0); MEAN CORPUSCULAR VOLUME 93 fL (80-96); NEUTROPHILS # (AUTO) 4.3 K/uL (1.8-8.9); NEUTROPHILS % (AUTO) 62.2 % (43.0-81.0); PLATELET COUNT (AUTO) 171 K/uL (150-450); RED BLOOD CELL COUNT(AUTO) 4.18 MIL/uL (4.5-6.0)
[2022-12-18 09:40] LABS: CALCIUM, SERUM 9.7 mg/dL (8.5-10.1); CARBON DIOXIDE 28 mmol/L (21-32); CHLORIDE 108 mmol/L (98-107); CREATININE 1.4 mg/dL (0.6-1.3); GLUCOSE 111 mg/dL (74-106); MAGNESIUM 2.2 mg/dL (1.8-2.4); PHOSPHORUS 3.6 mg/dL (2.5-4.9); POTASSIUM 3.8 mmol/L (3.5-5.1); SODIUM SERUM 142 mmol/L (136-145); UREA NITROGEN, BLOOD 22 mg/dL (7-18)
--- NOTE | 2022-12-18 09:58 | NUR ---
WOUND CARE CONSULT: PT PRESENTS WITH SOME AREAS OF SKIN DISCOLORATION, PRESENT ON ADMISSION. PT IS INCONTINENT. DISCUSSED SKIN PROTECTION WITH NURSING STAFF. WILL SEE PRBin HO IN AGREEMENT WITH PLAN OF CARE.
[2022-12-18 16:00] VITALS: BP 129/64
--- NOTE | 2022-12-18 18:25 | NUR ---
RN CLOSING NOTE- NO CHANGES, INTERACTIVE, PO INTAKE 100% MECHANICAL SOFT DIET. PT AWAKE IN BED, A/O X 2-3. ON ROOM AIR, BREATHING EVEN AND UNLABORED. NO DISTRESS OR SHORTNESS OF BREATH NOTED. NO S/S OF PAIN NOTED AT THIS TIME. SAFETY MEASURES GIVEN WITH BED ON LOWEST AND LOCKED POSITION. SIDE RAILS UP X2. MONITOR/ASSIST
--- NOTE | 2022-12-18 19:56 | NUR ---
MS RN OPENING NOTES RECEIVED PATIENT IN BED AWAKE. A/O X 2-3. ON ROOM AIR, BREATHING EVEN AND UNLABORED. NO DISTRESS OR SHORTNESS OF BREATH NOTED. NO S/S OF PAIN NOTED AT THIS TIME. SAFETY MEASURES GIVEN WITH BED ON LOWEST AND LOCKED POSITION. SIDE RAILS UP X2. CALL LIGHT AND TRAY TABLE WITHIN EASY REACH. WILL CONTINUE WITH THE PLAN OF CARE
[2022-12-18 20:00] VITALS: BP 124/75
[2022-12-18] MEDS: TAMSULOSIN 0.4 MG CAP.SR.24H PO SCH (21:28)
[2022-12-18] MEDS: MIRTAZAPINE 15 MG TABLET PO SCH (21:28)
--- NOTE | 2022-12-18 21:30 | NUR ---
RN NOTES PATIENT IS COOPERATIVE AND TOOK PRESCRIBED MEDICATIONS. WILL CONTINUE TO MONITOR.
--- NOTE | 2022-12-19 00:40 | NUR ---
RN NOTES PATIENT WAS ASKING FOR SLEEPING MEDICATION EARLIER BUT HE SLEPT AFTER TAKING HIS SCHEDULED MEDICATIONS. RETURNED AMBIEN TO [facility]. WILL CONTINUE TO MONITOR.
[2022-12-19 05:43] LABS: BASOPHILS # (AUTO) 0.1 K/uL (0.0-0.2); BASOPHILS % (AUTO) 1.1 % (0.0-2.0); EOSINOPHILS % (AUTO) 6.6 % (0.0-6.0); HEMATOCRIT 38 % (39-51); HEMOGLOBIN 12.6 g/dL (13.5-17.5); LYMPHOCYTES # (AUTO) 1.5 K/uL (0.8-4.8); LYMPHOCYTES % (AUTO) 26.2 % (20.0-44.0); MEAN CORPUSCULAR HGB CONC 33 g/dl (31.0-36.0); MEAN CORPUSCULAR VOLUME 93 fL (80-96); MONOCYTES # (AUTO) 0.8 K/uL (0.1-1.30); NEUTROPHILS % (AUTO) 52.1 % (43.0-81.0); PLATELET COUNT (AUTO) 160 K/uL (150-450); RED BLOOD CELL COUNT(AUTO) 4.12 MIL/uL (4.5-6.0); WHITE BLOOD COUNT (AUTO) 5.8 K/uL (4.3-11.0)
[2022-12-19 05:56] LABS: CALCIUM, SERUM 9.3 mg/dL (8.5-10.1); CARBON DIOXIDE 26 mmol/L (21-32); CHLORIDE 108 mmol/L (98-107); CREATININE 1.4 mg/dL (0.6-1.3); GLUCOSE 90 mg/dL (74-106); MAGNESIUM 2.1 mg/dL (1.8-2.4); POTASSIUM 3.9 mmol/L (3.5-5.1); SODIUM SERUM 141 mmol/L (136-145); UREA NITROGEN, BLOOD 21 mg/dL (7-18)
--- NOTE | 2022-12-19 07:05 | NUR ---
MS RN OPENING NOTES RECEIVED PATIENT IN BED AWAKE. A/O X 2. ON ROOM AIR, BREATHING EVEN AND UNLABORED. NO DISTRESS OR SHORTNESS OF BREATH NOTED. NO S/S OF PAIN NOTED AT THIS TIME. SAFETY MEASURES IN PLACED, BED ON LOWEST AND LOCKED POSITION. SIDE RAILS UP X2. CALL LIGHT AND TRAY TABLE WITHIN EASY REACH. WILL CONTINUE TO MONITOR THE PATIENT
[2022-12-19] MEDS: PANTOPRAZOLE 40 MG TABLET.DR PO SCH ×2 (07:30→08:26)
[2022-12-19 08:00] VITALS: BP 106/58
[2022-12-19] MEDS: GABAPENTIN 100 MG CAPSULE PO SCH ×2 (08:26→09:00)
[2022-12-19] MEDS: ASCORBIC ACID 500 MG TABLET PO SCH (08:26)
[2022-12-19] MEDS: CHOLECALCIFEROL 1,000 UNIT TABLET (VIT D3) PO SCH (08:26)
[2022-12-19] MEDS: DOCUSATE SODIUM 100 MG CAPSULE PO SCH ×2 (08:26→09:00)
[2022-12-19 16:00] VITALS: BP 115/77
--- NOTE | 2022-12-19 16:25 | NUR ---
MS MASTER HEARTH TECHNICIAN NOTES DISCHARGED PATIENT TO [facility], IN STABLE CONDITION, . A/O X 2. ON ROOM AIR, BREATHING EVEN AND UNLABORED. NO DISTRESS OR SHORTNESS OF BREATH NOTED. NO S/S OF PAIN NOTED AT THIS TIME. ABLE TO MAKE NEEDS KNOWN. CHARGE NURSE AWARE OF THE DISCHARGE
== END 2022-12-19 16:25 | DRG 640 ==
LOC: ER 21:26 → MED 12-16 01:28
PROVIDERS: ADMIT Student in an Organized Health Care Education/Training Program; ATTEND Nurse Practitioner Acute Care
DX: R62.7 Adult failure to thrive (principal); G93.41 Metabolic encephalopathy; N17.0 Acute kidney failure with tubular necrosis; E44.1 Mild protein-calorie malnutrition; E87.20 Acidosis, unspecified; E86.0 Dehydration; Z20.822 Contact with and (suspected) exposure to COVID-19; F03.90 Unspecified dementia, unspecified severity, without behavioral disturbance, psychotic disturbance, mood disturbance, and anxiety; I10 Essential (primary) hypertension; K40.90 Unilateral inguinal hernia, without obstruction or gangrene, not specified as recurrent; Z85.038 Personal history of other malignant neoplasm of large intestine; E78.00 Pure hypercholesterolemia, unspecified; K21.9 Gastro-esophageal reflux disease without esophagitis; Z79.899 Other long term (current) drug therapy; F09 Unspecified mental disorder due to known physiological condition; F20.9 Schizophrenia, unspecified; F31.9 Bipolar disorder, unspecified; E03.9 Hypothyroidism, unspecified; Z98.890 Other specified postprocedural states; R79.89 Other specified abnormal findings of blood chemistry; K59.00 Constipation, unspecified; E88.09 Other disorders of plasma-protein metabolism, not elsewhere classified
CPT/HCPCS: 36415; 70450-TC; 71045-TC; 80048-TC; 80076-TC; 81001; 83735-TC; 84100-TC; 84443-TC; 84484-TC; 85025-TC; 85730-TC; 87040-TC; 87081-TC; 92526; 92611-TC; 97116-TC; 97530-TC; C9803; G0378; J7030

== ENCOUNTER 2022-12-27 00:21 | Inpatient (IN) | payer MEDICARE, OTHER ==
[~2022-12-27] VITALS: Ht 182.9 cm; Wt 73.0 kg
[2022-12-27] MEDS ORDERED: ASPIRIN 325 MG TABLET ONE (00:44)
--- NOTE | 2022-12-27 00:50 | NUR ---
TO ER BED 06, BIB [facility] FROM SNF C/O SOB & R SIDED CP SINCE 190. WOOD FINISHER SATTING RA 89% IN SNF UPON TRIAGE SATTING 97% ON ON 3LPM N/C, AAOX2, BREATHING EVEN AND NON LABORED, CONNECTED TO MONITOR, AWAITING MD ORDERS
[2022-12-27] MEDS ORDERED: ASPIRIN 325 MG TABLET PO ONE (01:00)
--- NOTE | 2022-12-27 01:00 | NUR ---
COVID SWAB DONE AND SENT TO LAB
[2022-12-27 01:13] LABS: BASOPHILS # (AUTO) 0.1 K/uL (0.0-0.2); BASOPHILS % (AUTO) 0.6 % (0.0-2.0); EOSINOPHILS % (AUTO) 0.8 % (0.0-6.0); HEMATOCRIT 40 % (39-51); HEMOGLOBIN 12.9 g/dL (13.5-17.5); LYMPHOCYTES # (AUTO) 0.6 K/uL (0.8-4.8); LYMPHOCYTES % (AUTO) 4.9 % (20.0-44.0); MEAN CORPUSCULAR HGB CONC 32 g/dl (31.0-36.0); MEAN CORPUSCULAR VOLUME 94 fL (80-96); MONOCYTES # (AUTO) 0.9 K/uL (0.1-1.30); MONOCYTES % (AUTO) 7.7 % (2.0-12.0); NEUTROPHILS # (AUTO) 10.2 K/uL (1.8-8.9); PLATELET COUNT (AUTO) 177 K/uL (150-450); RED BLOOD CELL COUNT(AUTO) 4.24 MIL/uL (4.5-6.0); WHITE BLOOD COUNT (AUTO) 11.9 K/uL (4.3-11.0)
[2022-12-27 01:28] LABS: CALCIUM, SERUM 9.6 mg/dL (8.5-10.1); CARBON DIOXIDE 28 mmol/L (21-32); CHLORIDE 105 mmol/L (98-107); CREATININE 1.4 mg/dL (0.6-1.3); GLUCOSE 102 mg/dL (74-106); POTASSIUM 4.7 mmol/L (3.5-5.1); SODIUM SERUM 141 mmol/L (136-145); UREA NITROGEN, BLOOD 23 mg/dL (7-18)
[2022-12-27 01:41] LABS: ALANINE AMINOTRANSFERASE 15 U/L (12-78); ALBUMIN 3.4 g/dL (3.4-5.0); ALKALINE PHOSPHATASE 108 U/L (46-116); ASPARTATE AMINOTRANSFERASE 25 U/L (15-37); BILIRUBIN,DIRECT 0.1 mg/dL (0.0-0.2); BILIRUBIN,TOTAL 0.3 mg/dL (0.2-1.0); TOTAL PROTEIN, SERUM 7.8 g/dL (6.4-8.2)
--- NOTE | 2022-12-27 02:11 | NUR ---
VALVE LAPPER AT PT'S BEDSIDE
--- NOTE | 2022-12-27 03:54 | NUR ---
ATTEMPTED TO GIVE REPORT, NURSE ZHU IS WITH A PATIENT. WILL CALL AGAIN
--- NOTE | 2022-12-27 04:16 | NUR ---
REPORT GIVEN TO MARKO ON THIRD FLOOR
--- NOTE | 2022-12-27 05:00 | NUR ---
RN RECEIVING PATIENT FROM ER NOTE PATIENT ARRIVED STABLE. A/OX2 (NAME, PLACE). NO S/S OF DISTRESS, BREATHING W/O DIFFICULTY ON ROOM AIR. RAC #20 INTACT AND PATENT. TELE READS SR W/ PACs 69. SAFETY MEASURES IN PLACE: BED LOCKED AND AT LOWEST POSITION, RAILS UPX2, CALL ALVES WITHIN REACH. PATIENT ORIENTED TO UNIT. PATIENT GIVEN CALL-ALVES AND INSTRUCTED ON ITS USE. BELONGINGS ACCOUNTED FOR, LOGGED INTO SHEET, AND PLACED IN CHART. PATIENT EDUCATED ON MEDICAL NECESSITY OF TELE MONITOR, APPLIED SUCCESSFULLY. PATIENT STABLE; WILL CONTINUE TO MONITOR.
--- NOTE | 2022-12-27 05:16 | NUR ---
TRANSFERRED TO BED 312 IN STABLE CONDITION
[2022-12-27] MEDS ORDERED: ACETAMINOPHEN 325 MG TABLET PO PRN (05:30)
[2022-12-27] MEDS ORDERED: ONDANSETRON HCL/PF 4 MG/2 ML VIAL IVP PRN (05:30)
[2022-12-27] MEDS ORDERED: MORPHINE SULFATE INJ 2 MG/ML DISP.SYRIN IV PRN (05:30)
--- NOTE | 2022-12-27 06:00 | NUR ---
RN NOTE CALLED SON, BRIAN SANTANA ([phone]), AND LEFT MESSAGE STATING PATIENT'S ADMISSION TO [facility]. OUR UNIT NUMBER LEFT IN MESSAGE FOR SON TO CALL BACK.
--- NOTE | 2022-12-27 06:03 | NUR ---
RN NOTE CONTACTED [facility] ([phone]), AND SPOKE W/ NURSE JORDAN. FOR THE FOLLOWING TO BE FAXED TO OUR UNIT FOR PATIENT'S RECORD: * COVID * PNA * FLU PATIENT O/W STABLE; WILL CONTINUE TO MONITOR PATIENT.
[2022-12-27 06:18] VITALS: BP 108/61
--- NOTE | 2022-12-27 06:40 | NUR ---
RN CLOSING NOTE PATIENT ASLEEP IN BED. A/OX2 (NAME, PLACE). NO S/S OF DISTRESS, BREATHING WITHOUT DIFFICULTY ON ROOM AIR. RAC #20 INTACT AND PATENT W/ NS 75ML/HR. TELE READS SR W/ PAC 69. SAFETY MEASURES IN PLACE: BED LOCKED AND AT LOWEST POSITION, RAILS UP X2, CALL ALVES WITHIN REACH. WILL ENDORSE TO DAY SHIFT FOR DARNELL.
[2022-12-27] MEDS: IV NS 0.9% 1,000 ML IV PRN (06:51)
[2022-12-27 06:54] LABS: BASOPHILS % (AUTO) 0.3 % (0.0-2.0); EOSINOPHILS % (AUTO) 1.3 % (0.0-6.0); HEMATOCRIT 37 % (39-51); MEAN CORPUSCULAR HGB CONC 33 g/dl (31.0-36.0); MEAN CORPUSCULAR VOLUME 93 fL (80-96); NEUTROPHILS # (AUTO) 9.1 K/uL (1.8-8.9); NEUTROPHILS % (AUTO) 80.4 % (43.0-81.0); PLATELET COUNT (AUTO) 170 K/uL (150-450); RED BLOOD CELL COUNT(AUTO) 3.95 MIL/uL (4.5-6.0); WHITE BLOOD COUNT (AUTO) 11.3 K/uL (4.3-11.0)
--- NOTE | 2022-12-27 07:05 | NUR ---
RN OPENING NOTE PATIENT AWAKE IN BED. A/OX2 (NAME, PLACE). NO S/S OF DISTRESS, BREATHING WITHOUT DIFFICULTY ON ROOM AIR. RAC #20 INTACT AND PATENT W/ NS 75ML/HR. TELE READS SR W/ PAC 72. SAFETY MEASURES IN PLACE: BED LOCKED AND AT LOWEST POSITION, RAILS UP X2, CALL ALVES WITHIN REACH. WILL CONTINUE TO MONITOR.
[2022-12-27 07:21] LABS: CALCIUM, SERUM 9.1 mg/dL (8.5-10.1); CARBON DIOXIDE 24 mmol/L (21-32); CHLORIDE 108 mmol/L (98-107); CREATININE 1.3 mg/dL (0.6-1.3); GLUCOSE 101 mg/dL (74-106); POTASSIUM 4.1 mmol/L (3.5-5.1); SODIUM SERUM 140 mmol/L (136-145); UREA NITROGEN, BLOOD 21 mg/dL (7-18)
[2022-12-27 08:00] VITALS: BP 119/64
[2022-12-27] MEDS: METOPROLOL TARTRATE 50 MG TABLET PO SCH ×3 (09:00→21:57)
[2022-12-27] MEDS: ENOXAPARIN SODIUM 40 MG/0.4 ML DISP.SYRIN SQ SCH ×2 (09:00→09:37)
[2022-12-27] MEDS: ASPIRIN 81 MG TAB.CHEW PO SCH (09:40)
--- NOTE | 2022-12-27 09:49 | NUR ---
Patient refused 1 tab 50mg metoprolol PO Q12hr & Lovenox 10 mg SQ Q24hr
[2022-12-27 10:08] LABS: THYROID STIMULATING HORMONE 1.191 uIU/mL (0.358-3.74)
--- NOTE | 2022-12-27 11:24 | NUR ---
WOUND CARE CONSULT: PT PRESENTS WITH FRAGILE SKIN AND BLANCHABLE REDNESS TO BUTTOCKS. PT IS ABLE TO AMBULATE TO BATHROOM. DISCUSSED SKIN PROTECTION WITH NURSING STAFF. MDI N AGREEMENT WITH PLAN OF CARE. WILL SEE PRN.
[2022-12-27 15:34] VITALS: BP 102/37
[2022-12-27 16:42] LABS: BILIRUBIN,URINE NEGATIVE (NEGATIVE); COLOR,URINE YELLOW (YELLOW); LEUKOCYTE ESTERASE ,URINE 1+ (NEGATIVE); NITRITE, URINE NEGATIVE (NEGATIVE); PROTEIN,URINE NEGATIVE (NEGATIVE); UGLUCOSE NEGATIVE (NEGATIVE); UROBILINOGEN,URINE 0.2 EU/dL (0.2)
[2022-12-27 17:04] LABS: BACTERIA,URINE RARE /HPF (None Seen); RBC,URINE 0-2 /HPF (0-2); SQUAMOUS EPITHELIAL CELL,UR 0-2 /HPF (None Seen)
--- NOTE | 2022-12-27 17:05 | NUR ---
RECEIVED FAX COPY OF VACCINATIONS RECORD FROM [facility]. RECORDS UPDATED
[2022-12-27] MEDS ORDERED: IV NS 0.9% 250 ML IV ONE (18:21)
[2022-12-27] MEDS ORDERED: CT SWABBABLE VALVE TRANS SET 1 EA INFUS.SET MC ONE (18:21)
[2022-12-27] MEDS ORDERED: IOHEXOL-350 100 ML VIAL IV ONE (18:21)
--- NOTE | 2022-12-27 18:56 | NUR ---
RN CLOSING NOTE PATIENT ASLEEP IN BED. A/OX2 (NAME, PLACE). NO S/S OF DISTRESS, BREATHING WITHOUT DIFFICULTY ON ROOM AIR. RAC #20 INTACT AND PATENT W/ NS 75ML/HR. TELE READS SR W/ PAC 72. SAFETY MEASURES IN PLACE: BED LOCKED AND AT LOWEST POSITION, RAILS UP X2, CALL ALVES WITHIN REACH. WILL ENDORSE TO FLOW MACHINE OPERATOR RN FOR DARNELL.
--- NOTE | 2022-12-27 19:38 | NUR ---
PROTECTION ENGINEER OPENING NOTES: RECEIVED PATIENT SLEEP IN BED, AROUSABLE TO VERBAL STIMULI, BED IN LOW POSITION, CALL LIGHTS WITHIN REACH, NO COMPLAIN OF PAIN AND DISCOMFORT AT THIS TIME, ON 2LPM VIA NASAL CANNULA, PATIENT ON TELE MONITOR- SR-87 NO SYMPTOMS WAS OBSERVED, PATIENT IS A/OX2 ABLE TO MAKE NEEDS KNOWN, ON BED REST, WITH IV LINE AT RAC#20 WITH ONGOING 0.9NSS@75,ML/HR INFUSING WELL, PATIENT KEPT CLEAN AND DRY ALL NEEDS MET WILL CONTINUE TO MONITOR.
[2022-12-27 20:00] VITALS: BP 115/59
[2022-12-27 20:27] VITALS: BP 115/59
[2022-12-27] MEDS ORDERED: ATORVASTATIN 10 MG TABLET PO SCH (22:00)
[2022-12-28] VITALS: BP 114/62
[2022-12-28 04:00] VITALS: BP 117/63
[2022-12-28 06:21] LABS: BASOPHILS % (AUTO) 0.4 % (0.0-2.0); CALCIUM, SERUM 9.1 mg/dL (8.5-10.1); CARBON DIOXIDE 26 mmol/L (21-32); CHLORIDE 111 mmol/L (98-107); CREATININE 1.3 mg/dL (0.6-1.3); GLUCOSE 89 mg/dL (74-106); HEMATOCRIT 36 % (39-51); HEMOGLOBIN 11.9 g/dL (13.5-17.5); LYMPHOCYTES # (AUTO) 1.7 K/uL (0.8-4.8); LYMPHOCYTES % (AUTO) 28.3 % (20.0-44.0); MAGNESIUM 2.2 mg/dL (1.8-2.4); MEAN CORPUSCULAR HGB CONC 33 g/dl (31.0-36.0); MEAN CORPUSCULAR VOLUME 93 fL (80-96); MONOCYTES # (AUTO) 0.8 K/uL (0.1-1.30); NEUTROPHILS # (AUTO) 3.3 K/uL (1.8-8.9); NEUTROPHILS % (AUTO) 54.3 % (43.0-81.0); PHOSPHORUS 3.1 mg/dL (2.5-4.9); PLATELET COUNT (AUTO) 161 K/uL (150-450); POTASSIUM 4.1 mmol/L (3.5-5.1); RED BLOOD CELL COUNT(AUTO) 3.86 MIL/uL (4.5-6.0); SODIUM SERUM 142 mmol/L (136-145); UREA NITROGEN, BLOOD 23 mg/dL (7-18); WHITE BLOOD COUNT (AUTO) 6.1 K/uL (4.3-11.0)
--- NOTE | 2022-12-28 06:47 | NUR ---
CHIMNEY BUILDER CLOSING NOTES: PATIENT SLEEP IN BED COMFORTABLY, AROUSABLE TO VERBAL STIMULI, BED IN LOW POSITION, CALL LIGHTS WITHIN REACH, NO COMPLAIN OF PAIN AND DISCOMFORT AT THIS TIME, ON ROOM AIR SATURATING WELL, PATIENT IS A/OX 1-2 ON TELE MONITOR- SB-SR- [id number]. WITH IV LINE AT RAC#2O WITH ONGOING 0.9 NSS@75ML/HR INFUSING WELL, PATIENT KEPT CLEAN AND DRY ALL NEEDS MET ENDORSE TO INCOMING SHIFT.
[2022-12-28] MEDS: IV NS 0.9% 1,000 ML IV PRN (06:54)
--- NOTE | 2022-12-28 07:15 | NUR ---
RN OPENING NOTE PATIENT AWAKE IN BED. A/OX2 (NAME, PLACE). NO S/S OF DISTRESS, BREATHING WITHOUT DIFFICULTY ON ROOM AIR. RAC #20 INTACT AND PATENT W/ NS 75ML/HR. SAFETY MEASURES IN PLACE: BED LOCKED AND AT LOWEST POSITION, RAILS UP X2, CALL ALVES WITHIN REACH. WILL CONTINUE TO MONITOR.
[2022-12-28 07:27] LABS: CHOLESTEROL 155 mg/dL (<200); HDL CHOLESTEROL 42 mg/dL (40-60); LDL 102 mg/dL (0-99); TRIGLYCERIDES 83 mg/dL (30-150)
[2022-12-28 08:22] VITALS: BP 122/85
[2022-12-28 09:00] VITALS: BP 122/85
[2022-12-28] MEDS: ENOXAPARIN SODIUM 40 MG/0.4 ML DISP.SYRIN SQ SCH (09:00)
[2022-12-28] MEDS: ASPIRIN 81 MG TAB.CHEW PO SCH (09:00)
[2022-12-28] MEDS: METOPROLOL TARTRATE 50 MG TABLET PO SCH (09:00)
--- NOTE | 2022-12-28 09:08 | NUR ---
PATIENT REFUSED HIS AM MEDS TODAY: ASPIRN 81MG DAILY, LOVENOX 40MG Q24HR AND LOPRESSOR 50MG Q12HR. RN EDUCATED THE PATIENT WHO VERBALIZES, "I DON'T WANT TO TAKE THEM, DON'T ARGUE WITH ME". PATIENT LOOKS DEPRESSED. AFEBRILE AND ON STABLE VITAL SIGNS.
--- NOTE | 2022-12-28 09:48 | NUR ---
PATIENT REFUSED CT ANGIO OF THE HEART PROCEDURE. PLS TAKE NOTE HE SIGNED THE CONSENT TWO DAYS AGO. INFORMED
--- NOTE | 2022-12-28 13:30 | NUR ---
PATIENT DISCHARGED TO [facility] IN STABLE CONDITION. A/0X 3 BUT UNCOOPERATIVE. PATIENT WAS EARLIER REFERRED TO GPS FOR TRANSFER DUE TO CHANGING BEHAVIOR HOWEVER, THE FAMILY HAD DECIDED TO RETURN THE PATIENT TO [facility] WHERE THE PATIENT HAD ORIGINALLY CARED FOR. ENDORSEMENT WRITTEN AND VERBAL WERE EXTENDED TO [facility] WELL EMT PERSONNEL. PATIENT'S BELONGINGS WERE ACCOUNTED AND ENDORSED TO EMT'S WELL. SON BRIAN WAS AWARE OF THE DISCHARGE. CHARGE NURSE AWARE OF THE DISCHARGE.
[2022-12-28] MEDS ORDERED: SOD FERRIC GLUC 125 MG in IV NS 0.9% 100 ML IV SCH (14:00)
== END 2022-12-28 13:45 | DRG 303 ==
LOC: ER 00:23 → TELE 03:43
DX: I25.10 Atherosclerotic heart disease of native coronary artery without angina pectoris (principal); G93.49 Other encephalopathy; F03.93 Unspecified dementia, unspecified severity, with mood disturbance; I12.9 Hypertensive chronic kidney disease with stage 1 through stage 4 chronic kidney disease, or unspecified chronic kidney disease; N18.30 Chronic kidney disease, stage 3 unspecified; Z20.822 Contact with and (suspected) exposure to COVID-19; K21.9 Gastro-esophageal reflux disease without esophagitis; E03.9 Hypothyroidism, unspecified; D63.8 Anemia in other chronic diseases classified elsewhere; Z85.038 Personal history of other malignant neoplasm of large intestine; F20.9 Schizophrenia, unspecified; E78.00 Pure hypercholesterolemia, unspecified; K40.90 Unilateral inguinal hernia, without obstruction or gangrene, not specified as recurrent; Z79.899 Other long term (current) drug therapy; Z98.890 Other specified postprocedural states; F09 Unspecified mental disorder due to known physiological condition; F31.9 Bipolar disorder, unspecified
CPT/HCPCS: 36415; 71045-TC; 80048-TC; 80061-TC; 80076-TC; 81001; 82728-TC; 83540-TC; 83735-TC; 83880; 84100-TC; 84439-TC; 84443-TC; 84484-TC; 85025-TC; 85730-TC; 87081-TC; 87086-TC; 92526; 92611-TC; 93307-TC; A4223; C9803; G0378; J1650; J2916; J7030; J7050; Q9967

== ENCOUNTER 2023-08-11 13:47 | Inpatient (IN) | payer MEDICARE, OTHER ==
[~2023-08-11] VITALS: Ht 182.9 cm; Wt 71.7 kg
[~2023-08-11 13:47] MED LIST changes: -CEPH500C2 PO
[2023-08-11] MEDS ORDERED: IV NS 0.9% 1,000 ML BAG IV ONE (14:00)
[2023-08-11] MEDS ORDERED: HALO5TAB PO (14:10)
[2023-08-11] MEDS ORDERED: METO25TA20 PO (14:10)
[2023-08-11] MEDS ORDERED: ALLA266C2 TP (14:10)
[2023-08-11] MEDS ORDERED: ASPI-1169 PO (14:10)
[2023-08-11] MEDS ORDERED: FERR325T23 PO (14:10)
[2023-08-11 14:32] LABS: BASOPHILS # (AUTO) 0.1 K/uL (0.0-0.2); EOSINOPHILS # (AUTO) 0.2 K/uL (0.0-0.7); EOSINOPHILS % (AUTO) 2.7 % (0.0-6.0); HEMATOCRIT 42 % (39-51); HEMOGLOBIN 13.8 g/dL (13.5-17.5); LYMPHOCYTES # (AUTO) 1.2 K/uL (0.8-4.8); LYMPHOCYTES % (AUTO) 18.4 % (20.0-44.0); MEAN CORPUSCULAR HEMOGLOBIN 31 PG (26.0-33.0); MEAN CORPUSCULAR HGB CONC 33 g/dl (31.0-36.0); MEAN CORPUSCULAR VOLUME 93 fL (80-96); MONOCYTES # (AUTO) 0.7 K/uL (0.1-1.30); MONOCYTES % (AUTO) 11.1 % (2.0-12.0); NEUTROPHILS # (AUTO) 4.2 K/uL (1.8-8.9); NEUTROPHILS % (AUTO) 66.8 % (43.0-81.0); PLATELET COUNT (AUTO) 172 K/uL (150-450); RED BLOOD CELL COUNT(AUTO) 4.48 MIL/uL (4.5-6.0); RED CELL DISTRIBUTION WIDTH 13.9 % (11.5-15.0); WHITE BLOOD COUNT (AUTO) 6.3 K/uL (4.3-11.0)
[2023-08-11 14:52] LABS: CALCIUM, SERUM 9.8 mg/dL (8.5-10.1); CARBON DIOXIDE 24 mmol/L (21-32); CHLORIDE 107 mmol/L (98-107); CREATININE 1.4 mg/dL (0.6-1.3); GLUCOSE 103 mg/dL (74-106); POTASSIUM 4.3 mmol/L (3.5-5.1); SODIUM SERUM 142 mmol/L (136-145); UREA NITROGEN, BLOOD 17 mg/dL (7-18)
[2023-08-11 14:57] LABS: ALANINE AMINOTRANSFERASE 14 U/L (12-78); ALBUMIN 3.5 g/dL (3.4-5.0); ALKALINE PHOSPHATASE 88 U/L (46-116); ASPARTATE AMINOTRANSFERASE 20 U/L (15-37); BILIRUBIN,DIRECT 0.1 mg/dL (0.0-0.2); BILIRUBIN,TOTAL 0.5 mg/dL (0.2-1.0); TOTAL PROTEIN, SERUM 7.7 g/dL (6.4-8.2)
[2023-08-11 15:59] LABS: APPEARANCE,URINE CLEAR (CLEAR); BILIRUBIN,URINE NEGATIVE (NEGATIVE); BLOOD, URINE NEGATIVE Ery/uL (NEGATIVE); COLOR,URINE YELLOW (YELLOW); KETONES,URINE NEGATIVE (NEGATIVE); LEUKOCYTE ESTERASE ,URINE NEGATIVE (NEGATIVE); NITRITE, URINE NEGATIVE (NEGATIVE); PROTEIN,URINE NEGATIVE (NEGATIVE); UGLUCOSE NEGATIVE (NEGATIVE)
[2023-08-11 16:28] LABS: ADD URINE CULTURE NO; BACTERIA,URINE None seen /HPF (None Seen); RBC,URINE 0-2 /HPF (0-2); SQUAMOUS EPITHELIAL CELL,UR 0-2 /HPF (None Seen); WBC,URINE 0-2 /HPF (0-3)
[2023-08-11] MEDS ORDERED: MAG HYDROX/AL HYDROX/SIMETH 30 ML UDC PO PRN (16:30)
[2023-08-11] MEDS ORDERED: MAGNESIUM HYDROXIDE 30 ML UDC PO PRN (16:30)
[2023-08-11] MEDS ORDERED: CEFTRIAXONE 1 G in IV D5W 50 ML IV SCH (16:30)
[2023-08-11] MEDS ORDERED: ONDANSETRON HCL/PF 4 MG/2 ML VIAL IVP PRN (16:30)
[2023-08-11] MEDS ORDERED: ACETAMINOPHEN 325 MG TABLET PO PRN (16:30)
[2023-08-11] MEDS ORDERED: SENNOSIDES 8.6 MG TABLET PO PRN (16:30)
[2023-08-11] MEDS ORDERED: Z GUARD REMEDY 4 OZ OINT TP PRN (16:30)
[2023-08-11] MEDS ORDERED: CEFTRIAXONE 1GM BAG (ER ONLY) 50 ML IV ONE (16:54)
[2023-08-11 20:00] VITALS: BP 125/65; TEMP 98.2; O2SAT 97
[2023-08-11] MEDS: FERROUS SULFATE (325 MG) 325 MG/TAB TABLET PO SCH (20:01)
[2023-08-11] MEDS: HALOPERIDOL 5 MG TABLET PO SCH (20:01)
[2023-08-11 20:41] VITALS: BP 125/65; TEMP 98.2; O2SAT 97
[2023-08-11] MEDS: IV D5/0.45 NACL 1,000 ML IV PRN (20:50)
[2023-08-11] MEDS: METOPROLOL TARTRATE 25 MG TABLET PO SCH (21:00)
[2023-08-11] MEDS: MIRTAZAPINE 15 MG TABLET PO SCH (22:00)
[2023-08-11] MEDS: TAMSULOSIN 0.4 MG CAP.SR.24H PO SCH (22:00)
[2023-08-12 05:50] LABS: BASOPHILS # (AUTO) 0.1 K/uL (0.0-0.2); BASOPHILS % (AUTO) 0.9 % (0.0-2.0); EOSINOPHILS # (AUTO) 0.2 K/uL (0.0-0.7); EOSINOPHILS % (AUTO) 4.1 % (0.0-6.0); HEMATOCRIT 37 % (39-51); HEMOGLOBIN 12.3 g/dL (13.5-17.5); LYMPHOCYTES # (AUTO) 1.9 K/uL (0.8-4.8); LYMPHOCYTES % (AUTO) 32.3 % (20.0-44.0); MEAN CORPUSCULAR HEMOGLOBIN 31 PG (26.0-33.0); MEAN CORPUSCULAR HGB CONC 33 g/dl (31.0-36.0); MEAN CORPUSCULAR VOLUME 94 fL (80-96); MONOCYTES # (AUTO) 0.8 K/uL (0.1-1.30); MONOCYTES % (AUTO) 13.9 % (2.0-12.0); NEUTROPHILS # (AUTO) 2.9 K/uL (1.8-8.9); NEUTROPHILS % (AUTO) 48.8 % (43.0-81.0); PLATELET COUNT (AUTO) 167 K/uL (150-450); RED BLOOD CELL COUNT(AUTO) 3.95 MIL/uL (4.5-6.0); RED CELL DISTRIBUTION WIDTH 13.9 % (11.5-15.0); WHITE BLOOD COUNT (AUTO) 5.9 K/uL (4.3-11.0)
[2023-08-12 06:23] LABS: ALANINE AMINOTRANSFERASE 15 U/L (12-78); ALBUMIN 2.9 g/dL (3.4-5.0); ALKALINE PHOSPHATASE 71 U/L (46-116); ASPARTATE AMINOTRANSFERASE 34 U/L (15-37); BILIRUBIN,TOTAL 0.5 mg/dL (0.2-1.0); CALCIUM, SERUM 8.8 mg/dL (8.5-10.1); CARBON DIOXIDE 24 mmol/L (21-32); CHLORIDE 110 mmol/L (98-107); CREATININE 1.3 mg/dL (0.6-1.3); GLUCOSE 91 mg/dL (74-106); MAGNESIUM 2.1 mg/dL (1.8-2.4); PHOSPHORUS 3.2 mg/dL (2.5-4.9); POTASSIUM 3.7 mmol/L (3.5-5.1); SODIUM SERUM 143 mmol/L (136-145); TOTAL PROTEIN, SERUM 6.4 g/dL (6.4-8.2); UREA NITROGEN, BLOOD 15 mg/dL (7-18)
[2023-08-12 08:00] VITALS: BP 108/51; TEMP 99; O2SAT 95
[2023-08-12] MEDS: HALOPERIDOL 5 MG TABLET PO SCH ×2 (09:00→16:59)
[2023-08-12] MEDS: METOPROLOL TARTRATE 25 MG TABLET PO SCH ×2 (09:00→20:26)
[2023-08-12] MEDS: ASPIRIN 81 MG TAB.CHEW PO SCH (09:44)
[2023-08-12] MEDS: FERROUS SULFATE (325 MG) 325 MG/TAB TABLET PO SCH ×2 (09:44→16:58)
[2023-08-12 16:00] VITALS: BP 117/53; TEMP 99.5; O2SAT 93
[2023-08-12] MEDS: IV D5/0.45 NACL 1,000 ML IV PRN (16:09)
[2023-08-12] MEDS ORDERED: CEFTRIAXONE 1 G in IV D5W 50 ML IV SCH (17:00)
[2023-08-12 20:00] VITALS: BP 106/53; TEMP 99.1; O2SAT 93; O2SAT 96
[2023-08-12] MEDS: TAMSULOSIN 0.4 MG CAP.SR.24H PO SCH (21:58)
[2023-08-12] MEDS: MIRTAZAPINE 15 MG TABLET PO SCH (21:58)
[2023-08-13] MEDS: IV D5/0.45 NACL 1,000 ML IV PRN (05:26)
[2023-08-13] MEDS: HALOPERIDOL 5 MG TABLET PO SCH (08:03)
[2023-08-13] MEDS: FERROUS SULFATE (325 MG) 325 MG/TAB TABLET PO SCH (08:03)
[2023-08-13] MEDS: ASPIRIN 81 MG TAB.CHEW PO SCH (08:03)
[2023-08-13] MEDS: METOPROLOL TARTRATE 25 MG TABLET PO SCH (08:08)
[2023-08-13 10:00] VITALS: BP 131/60
== END 2023-08-13 15:00 | DRG 640 ==
LOC: ER 13:58 → MED 18:19
PROVIDERS: ADMIT Internal Medicine; ATTEND Internal Medicine
DX: R62.7 Adult failure to thrive (principal); G93.41 Metabolic encephalopathy; F03.93 Unspecified dementia, unspecified severity, with mood disturbance; N18.2 Chronic kidney disease, stage 2 (mild); I12.9 Hypertensive chronic kidney disease with stage 1 through stage 4 chronic kidney disease, or unspecified chronic kidney disease; E78.5 Hyperlipidemia, unspecified; Z85.038 Personal history of other malignant neoplasm of large intestine; F31.9 Bipolar disorder, unspecified; F20.9 Schizophrenia, unspecified; Z79.82 Long term (current) use of aspirin; E03.9 Hypothyroidism, unspecified
CPT/HCPCS: 36415; 71045-TC; 80048-TC; 80053-TC; 80076-TC; 81001; 82962-TC; 83735-TC; 84100-TC; 84443-TC; 85025-TC; 87040-TC; 87081-TC; 92526; 92611-TC; A4223; G0378; J0696; J3490; J7030; J7060

== ENCOUNTER 2023-09-30 20:07 | Inpatient (IN) | payer MEDICARE, OTHER ==
[~2023-09-30] VITALS: Ht 170.2 cm; Wt 69.9 kg
[~2023-09-30 20:07] MED LIST changes: +ALLA266C2 TP; -ASCO500T10 PO; +ASPI-1169 PO; -DOCU-141 PO; +FERR325T23 PO; -GABA-532 PO; +HALO5TAB PO; +METO25TA20 PO; -PANT40TA49 PO; -RISP0.2515 PO
[2023-09-30 21:33] LABS: BASOPHILS # (AUTO) 0.1 K/uL (0.0-0.2); BASOPHILS % (AUTO) 0.8 % (0.0-2.0); EOSINOPHILS # (AUTO) 0.3 K/uL (0.0-0.7); EOSINOPHILS % (AUTO) 4.2 % (0.0-6.0); HEMATOCRIT 41 % (39-51); HEMOGLOBIN 13.6 g/dL (13.5-17.5); LYMPHOCYTES # (AUTO) 1.6 K/uL (0.8-4.8); LYMPHOCYTES % (AUTO) 19.8 % (20.0-44.0); MEAN CORPUSCULAR HEMOGLOBIN 31 PG (26.0-33.0); MEAN CORPUSCULAR HGB CONC 33 g/dl (31.0-36.0); MEAN CORPUSCULAR VOLUME 94 fL (80-96); MONOCYTES # (AUTO) 1.1 K/uL (0.1-1.30); NEUTROPHILS # (AUTO) 5.1 K/uL (1.8-8.9); NEUTROPHILS % (AUTO) 62.2 % (43.0-81.0); PLATELET COUNT (AUTO) 191 K/uL (150-450); RED BLOOD CELL COUNT(AUTO) 4.36 MIL/uL (4.5-6.0); RED CELL DISTRIBUTION WIDTH 13.4 % (11.5-15.0); WHITE BLOOD COUNT (AUTO) 8.2 K/uL (4.3-11.0)
[2023-09-30 21:44] LABS: INR 1.03 (0.91-1.10); PARTIAL THROMBOPLASTIN TIME 29.1 SEC (24.3-34.3); PROTHROMBIN TIME 10.9 SECS (9.2-11.1)
[2023-09-30 21:49] LABS: LACTIC ACID 0.8 mmol/L (0.4-2.0)
[2023-09-30 22:00] LABS: CARBON DIOXIDE 25 mmol/L (21-32); CHLORIDE 110 mmol/L (98-107); CREATININE 1.4 mg/dL (0.6-1.3); GLUCOSE 113 mg/dL (74-106); POTASSIUM 3.8 mmol/L (3.5-5.1); SODIUM SERUM 146 mmol/L (136-145); UREA NITROGEN, BLOOD 17 mg/dL (7-18)
[2023-09-30 22:08] LABS: ALANINE AMINOTRANSFERASE 23 U/L (12-78); ALBUMIN 3.1 g/dL (3.4-5.0); ALKALINE PHOSPHATASE 70 U/L (46-116); ASPARTATE AMINOTRANSFERASE 38 U/L (15-37); BILIRUBIN,DIRECT 0.1 mg/dL (0.0-0.2); BILIRUBIN,TOTAL 0.6 mg/dL (0.2-1.0); TOTAL PROTEIN, SERUM 7.2 g/dL (6.4-8.2)
[2023-09-30] MEDS ORDERED: PIPERACI/TAZO 3.375GM/D5W 50ML PB IV ONE (22:29)
[2023-09-30] MEDS ORDERED: AZITHROMYCIN 500 MG in IV D5W 250 ML IV ONE (22:30)
[2023-09-30] MEDS ORDERED: PIPERACILLIN /TAZOBACTAM 3.375 G in IV D5W 50 ML IV ONE (22:30)
[2023-09-30] MEDS ORDERED: VANCOMYCIN 1 GM in IV D5W 250 ML IV ONE (22:30)
[2023-09-30] MEDS ORDERED: VANCOMYCIN 1 GM /D5W 250 ML PB IV ONE (22:39)
[2023-09-30 22:41] LABS: APPEARANCE,URINE SLIGHTLY CLOUDY (CLEAR); BILIRUBIN,URINE NEGATIVE (NEGATIVE); BLOOD, URINE NEGATIVE Ery/uL (NEGATIVE); COLOR,URINE YELLOW (YELLOW); KETONES,URINE NEGATIVE (NEGATIVE); LEUKOCYTE ESTERASE ,URINE NEGATIVE (NEGATIVE); NITRITE, URINE NEGATIVE (NEGATIVE); PROTEIN,URINE NEGATIVE (NEGATIVE); UGLUCOSE NEGATIVE (NEGATIVE); UROBILINOGEN,URINE 0.2 EU/dL (0.2)
[2023-09-30] MEDS ORDERED: IV NS 0.9% 500 ML BAG IV ONE (23:00)
[2023-09-30] MEDS ORDERED: AZITHROMYCIN 500 MG VIAL ONE (23:30)
[2023-09-30] MEDS ORDERED: CEFEPIME 1 GM in IV D5W 50 ML IV ONE (23:45)
[2023-10-01] MEDS ORDERED: ZOLPIDEM TARTRATE 5 MG TABLET PO PRN
[2023-10-01] MEDS ORDERED: ONDANSETRON HCL/PF 4 MG/2 ML VIAL IVP PRN
[2023-10-01] MEDS ORDERED: Z GUARD REMEDY 4 OZ OINT TP PRN
[2023-10-01] MEDS ORDERED: MORPHINE SULFATE INJ 2 MG/ML DISP.SYRIN IV PRN
[2023-10-01] MEDS ORDERED: ENOXAPARIN SODIUM 30 MG/0.3 ML DISP.SYRIN SQ SCH
[2023-10-01 00:26] VITALS: BP 126/86; TEMP 98.6; O2SAT 97
[2023-10-01] MEDS: IV D5/0.45 NACL 1,000 ML IV PRN ×2 (02:01→15:13)
[2023-10-01 06:04] LABS: BASOPHILS # (AUTO) 0.1 K/uL (0.0-0.2); BASOPHILS % (AUTO) 0.7 % (0.0-2.0); EOSINOPHILS # (AUTO) 0.5 K/uL (0.0-0.7); EOSINOPHILS % (AUTO) 6.1 % (0.0-6.0); HEMATOCRIT 40 % (39-51); HEMOGLOBIN 13.3 g/dL (13.5-17.5); LYMPHOCYTES # (AUTO) 1.6 K/uL (0.8-4.8); LYMPHOCYTES % (AUTO) 20.4 % (20.0-44.0); MEAN CORPUSCULAR HEMOGLOBIN 31 PG (26.0-33.0); MEAN CORPUSCULAR HGB CONC 33 g/dl (31.0-36.0); MEAN CORPUSCULAR VOLUME 94 fL (80-96); MONOCYTES % (AUTO) 13.4 % (2.0-12.0); NEUTROPHILS # (AUTO) 4.6 K/uL (1.8-8.9); NEUTROPHILS % (AUTO) 59.4 % (43.0-81.0); PLATELET COUNT (AUTO) 183 K/uL (150-450); RED BLOOD CELL COUNT(AUTO) 4.24 MIL/uL (4.5-6.0); RED CELL DISTRIBUTION WIDTH 13.2 % (11.5-15.0); WHITE BLOOD COUNT (AUTO) 7.7 K/uL (4.3-11.0)
[2023-10-01 06:39] LABS: CALCIUM, SERUM 9.4 mg/dL (8.5-10.1); CREATININE 1.3 mg/dL (0.6-1.3); PHOSPHORUS 3.4 mg/dL (2.5-4.9); POTASSIUM 3.6 mmol/L (3.5-5.1)
[2023-10-01 07:00] VITALS: BP 125/67; TEMP 97.4; O2SAT 94
[2023-10-01] MEDS ORDERED: PANTOPRAZOLE 40 MG VIAL IV SCH (09:00)
[2023-10-01] MEDS: NYSTATIN (PYXIS) 500,000 UNIT/5 ML ORAL.SUSP PO SCH ×3 (09:03→17:33)
[2023-10-01] MEDS: CEFEPIME 2 GM in IV D5W 100 ML IV SCH ×2 (09:04→20:08)
[2023-10-01] MEDS ORDERED: MAG HYDROX/AL HYDROX/SIMETH 30 ML UDC PO PRN (13:30)
[2023-10-01] MEDS ORDERED: SENNOSIDES 8.6 MG TABLET PO PRN (13:30)
[2023-10-01 16:00] VITALS: BP 149/132; TEMP 97.5; O2SAT 97
[2023-10-01] MEDS: FERROUS SULFATE (325 MG) 325 MG/TAB TABLET PO SCH (17:33)
[2023-10-01] MEDS: HALOPERIDOL 5 MG TABLET PO SCH (17:33)
[2023-10-01 20:00] VITALS: BP 141/71; TEMP 98.2; O2SAT 97
[2023-10-01] MEDS: METOPROLOL TARTRATE 25 MG TABLET PO SCH (20:27)
[2023-10-01] MEDS: ENOXAPARIN SODIUM 40 MG/0.4 ML DISP.SYRIN SQ SCH (20:28)
[2023-10-01] MEDS: TAMSULOSIN 0.4 MG CAP.SR.24H PO SCH (22:22)
[2023-10-01] MEDS: MIRTAZAPINE 15 MG TABLET PO SCH (22:23)
[2023-10-02] MEDS ORDERED: AZITHROMYCIN 500 MG in IV D5W 250 ML IV SCH ×2
[2023-10-02] MEDS: IV D5/0.45 NACL 1,000 ML IV PRN (05:04)
[2023-10-02 06:43] LABS: BASOPHILS % (AUTO) 0.8 % (0.0-2.0); EOSINOPHILS # (AUTO) 0.5 K/uL (0.0-0.7); EOSINOPHILS % (AUTO) 8.9 % (0.0-6.0); HEMATOCRIT 39 % (39-51); LYMPHOCYTES # (AUTO) 1.5 K/uL (0.8-4.8); LYMPHOCYTES % (AUTO) 25.8 % (20.0-44.0); MEAN CORPUSCULAR HEMOGLOBIN 31 PG (26.0-33.0); MEAN CORPUSCULAR HGB CONC 33 g/dl (31.0-36.0); MEAN CORPUSCULAR VOLUME 95 fL (80-96); MONOCYTES # (AUTO) 0.8 K/uL (0.1-1.30); MONOCYTES % (AUTO) 13.3 % (2.0-12.0); NEUTROPHILS # (AUTO) 3.1 K/uL (1.8-8.9); NEUTROPHILS % (AUTO) 51.2 % (43.0-81.0); PLATELET COUNT (AUTO) 162 K/uL (150-450); RED BLOOD CELL COUNT(AUTO) 4.17 MIL/uL (4.5-6.0); RED CELL DISTRIBUTION WIDTH 13.4 % (11.5-15.0)
[2023-10-02 06:54] LABS: CALCIUM, SERUM 9.6 mg/dL (8.5-10.1); CREATININE 1.1 mg/dL (0.6-1.3); MAGNESIUM 2.1 mg/dL (1.8-2.4); POTASSIUM 3.9 mmol/L (3.5-5.1)
[2023-10-02 07:00] VITALS: BP_SYST 108; BP_SYST 137; BP_DIAS 50; BP_DIAS 69; TEMP 97.5; TEMP 97.7; O2SAT 97; O2SAT 98
[2023-10-02] MEDS: FERROUS SULFATE (325 MG) 325 MG/TAB TABLET PO SCH ×2 (08:42→18:01)
[2023-10-02] MEDS: PANTOPRAZOLE 40 MG TABLET.DR PO SCH (08:42)
[2023-10-02] MEDS: NYSTATIN (PYXIS) 500,000 UNIT/5 ML ORAL.SUSP PO SCH ×3 (08:42→18:01)
[2023-10-02] MEDS: CHOLECALCIFEROL 1,000 UNIT TABLET (VIT D3) PO SCH (08:42)
[2023-10-02] MEDS: CEFEPIME 2 GM in IV D5W 100 ML IV SCH ×2 (08:45→21:28)
[2023-10-02] MEDS: HALOPERIDOL 5 MG TABLET PO SCH ×2 (08:45→18:01)
[2023-10-02] MEDS: ASPIRIN 81 MG TAB.CHEW PO SCH (08:46)
[2023-10-02] MEDS: METOPROLOL TARTRATE 25 MG TABLET PO SCH ×2 (09:59→21:32)
[2023-10-02 16:00] VITALS: BP 116/62; TEMP 97.5; O2SAT 98
[2023-10-02 20:00] VITALS: BP 133/66; TEMP 97.5; O2SAT 100
[2023-10-02] MEDS: AZITHROMYCIN 250 MG TABLET PO SCH (20:12)
[2023-10-02] MEDS: ENOXAPARIN SODIUM 40 MG/0.4 ML DISP.SYRIN SQ SCH (21:34)
[2023-10-02] MEDS: MIRTAZAPINE 15 MG TABLET PO SCH (22:39)
[2023-10-02] MEDS: TAMSULOSIN 0.4 MG CAP.SR.24H PO SCH (22:39)
[2023-10-03] MEDS: IV D5/0.45 NACL 1,000 ML IV PRN ×2 (05:24→18:23)
[2023-10-03 06:30] LABS: BASOPHILS % (AUTO) 0.8 % (0.0-2.0); EOSINOPHILS # (AUTO) 0.4 K/uL (0.0-0.7); EOSINOPHILS % (AUTO) 8.5 % (0.0-6.0); HEMATOCRIT 36 % (39-51); HEMOGLOBIN 12.2 g/dL (13.5-17.5); LYMPHOCYTES # (AUTO) 1.4 K/uL (0.8-4.8); MEAN CORPUSCULAR HEMOGLOBIN 32 PG (26.0-33.0); MEAN CORPUSCULAR HGB CONC 34 g/dl (31.0-36.0); MEAN CORPUSCULAR VOLUME 94 fL (80-96); MONOCYTES # (AUTO) 0.6 K/uL (0.1-1.30); MONOCYTES % (AUTO) 10.9 % (2.0-12.0); NEUTROPHILS # (AUTO) 2.8 K/uL (1.8-8.9); NEUTROPHILS % (AUTO) 53.8 % (43.0-81.0); PLATELET COUNT (AUTO) 158 K/uL (150-450); RED BLOOD CELL COUNT(AUTO) 3.87 MIL/uL (4.5-6.0); RED CELL DISTRIBUTION WIDTH 12.9 % (11.5-15.0); WHITE BLOOD COUNT (AUTO) 5.2 K/uL (4.3-11.0)
[2023-10-03 06:54] LABS: ALBUMIN 2.7 g/dL (3.4-5.0); BILIRUBIN,TOTAL 0.5 mg/dL (0.2-1.0); CALCIUM, SERUM 9.5 mg/dL (8.5-10.1); CREATININE 1.1 mg/dL (0.6-1.3); MAGNESIUM 2.2 mg/dL (1.8-2.4); PHOSPHORUS 3.7 mg/dL (2.5-4.9); POTASSIUM 3.9 mmol/L (3.5-5.1); TOTAL PROTEIN, SERUM 6.6 g/dL (6.4-8.2)
[2023-10-03 07:00] VITALS: BP 104/66; TEMP 97.5; O2SAT 94
[2023-10-03] MEDS: CEFEPIME 2 GM in IV D5W 100 ML IV SCH ×2 (08:59→21:00)
[2023-10-03] MEDS: CHOLECALCIFEROL 1,000 UNIT TABLET (VIT D3) PO SCH (09:06)
[2023-10-03] MEDS: NYSTATIN (PYXIS) 500,000 UNIT/5 ML ORAL.SUSP PO SCH ×3 (09:06→16:44)
[2023-10-03] MEDS: FERROUS SULFATE (325 MG) 325 MG/TAB TABLET PO SCH ×2 (09:06→16:44)
[2023-10-03] MEDS: PANTOPRAZOLE 40 MG TABLET.DR PO SCH (09:07)
[2023-10-03] MEDS: ASPIRIN 81 MG TAB.CHEW PO SCH (09:07)
[2023-10-03] MEDS: METOPROLOL TARTRATE 25 MG TABLET PO SCH ×2 (09:07→21:00)
[2023-10-03] MEDS: HALOPERIDOL 5 MG TABLET PO SCH ×2 (09:07→16:44)
[2023-10-03 16:00] VITALS: BP 108/61; TEMP 97.5; O2SAT 96
[2023-10-03 19:00] VITALS: BP 106/64; TEMP 97.8; O2SAT 95
[2023-10-03 20:00] VITALS: BP 106/64; TEMP 97.8; O2SAT 95
[2023-10-03] MEDS: AZITHROMYCIN 250 MG TABLET PO SCH (20:57)
[2023-10-03] MEDS: MIRTAZAPINE 15 MG TABLET PO SCH (21:14)
[2023-10-03] MEDS: TAMSULOSIN 0.4 MG CAP.SR.24H PO SCH (21:14)
[2023-10-03] MEDS: ENOXAPARIN SODIUM 40 MG/0.4 ML DISP.SYRIN SQ SCH (21:15)
[2023-10-04 06:27] LABS: BASOPHILS % (AUTO) 0.9 % (0.0-2.0); EOSINOPHILS # (AUTO) 0.3 K/uL (0.0-0.7); EOSINOPHILS % (AUTO) 6.9 % (0.0-6.0); HEMATOCRIT 35 % (39-51); HEMOGLOBIN 11.7 g/dL (13.5-17.5); LYMPHOCYTES # (AUTO) 1.3 K/uL (0.8-4.8); LYMPHOCYTES % (AUTO) 26.4 % (20.0-44.0); MEAN CORPUSCULAR HEMOGLOBIN 32 PG (26.0-33.0); MEAN CORPUSCULAR HGB CONC 33 g/dl (31.0-36.0); MEAN CORPUSCULAR VOLUME 94 fL (80-96); MONOCYTES # (AUTO) 0.7 K/uL (0.1-1.30); MONOCYTES % (AUTO) 14.5 % (2.0-12.0); NEUTROPHILS # (AUTO) 2.4 K/uL (1.8-8.9); NEUTROPHILS % (AUTO) 51.3 % (43.0-81.0); PLATELET COUNT (AUTO) 146 K/uL (150-450); RED BLOOD CELL COUNT(AUTO) 3.71 MIL/uL (4.5-6.0); RED CELL DISTRIBUTION WIDTH 13.1 % (11.5-15.0); WHITE BLOOD COUNT (AUTO) 4.7 K/uL (4.3-11.0)
[2023-10-04 07:07] LABS: ALBUMIN 2.5 g/dL (3.4-5.0); BILIRUBIN,TOTAL 0.4 mg/dL (0.2-1.0); CALCIUM, SERUM 9.1 mg/dL (8.5-10.1); CREATININE 1.1 mg/dL (0.6-1.3); MAGNESIUM 2.1 mg/dL (1.8-2.4); PHOSPHORUS 3.1 mg/dL (2.5-4.9); POTASSIUM 3.7 mmol/L (3.5-5.1); TOTAL PROTEIN, SERUM 6.2 g/dL (6.4-8.2)
[2023-10-04 08:00] VITALS: BP 128/48; TEMP 98.2; O2SAT 96
[2023-10-04] MEDS: CEFEPIME 2 GM in IV D5W 100 ML IV SCH ×2 (08:04→20:07)
[2023-10-04] MEDS: METOPROLOL TARTRATE 25 MG TABLET PO SCH ×2 (08:05→20:08)
[2023-10-04] MEDS: ASPIRIN 81 MG TAB.CHEW PO SCH (08:05)
[2023-10-04] MEDS: FERROUS SULFATE (325 MG) 325 MG/TAB TABLET PO SCH ×2 (08:05→17:20)
[2023-10-04] MEDS: PANTOPRAZOLE 40 MG TABLET.DR PO SCH (08:05)
[2023-10-04] MEDS: NYSTATIN (PYXIS) 500,000 UNIT/5 ML ORAL.SUSP PO SCH ×3 (08:05→17:21)
[2023-10-04] MEDS: CHOLECALCIFEROL 1,000 UNIT TABLET (VIT D3) PO SCH (08:06)
[2023-10-04] MEDS: HALOPERIDOL 5 MG TABLET PO SCH ×2 (08:07→17:20)
[2023-10-04] MEDS: IV D5/0.45 NACL 1,000 ML IV PRN (08:11)
[2023-10-04 16:00] VITALS: BP 115/54; TEMP 98.2; O2SAT 96
[2023-10-04 20:00] VITALS: BP 133/60; TEMP 97.3; O2SAT 97
[2023-10-04] MEDS: AZITHROMYCIN 250 MG TABLET PO SCH (20:06)
[2023-10-04] MEDS: ENOXAPARIN SODIUM 40 MG/0.4 ML DISP.SYRIN SQ SCH (20:13)
[2023-10-04] MEDS: MIRTAZAPINE 15 MG TABLET PO SCH (21:03)
[2023-10-04] MEDS: TAMSULOSIN 0.4 MG CAP.SR.24H PO SCH (21:04)
[2023-10-05 06:20] LABS: BASOPHILS % (AUTO) 0.7 % (0.0-2.0); EOSINOPHILS # (AUTO) 0.3 K/uL (0.0-0.7); HEMATOCRIT 39 % (39-51); HEMOGLOBIN 12.9 g/dL (13.5-17.5); LYMPHOCYTES # (AUTO) 1.2 K/uL (0.8-4.8); LYMPHOCYTES % (AUTO) 23.9 % (20.0-44.0); MEAN CORPUSCULAR HEMOGLOBIN 31 PG (26.0-33.0); MEAN CORPUSCULAR HGB CONC 33 g/dl (31.0-36.0); MEAN CORPUSCULAR VOLUME 94 fL (80-96); MONOCYTES # (AUTO) 0.7 K/uL (0.1-1.30); MONOCYTES % (AUTO) 13.7 % (2.0-12.0); NEUTROPHILS # (AUTO) 2.9 K/uL (1.8-8.9); NEUTROPHILS % (AUTO) 55.7 % (43.0-81.0); PLATELET COUNT (AUTO) 160 K/uL (150-450); RED BLOOD CELL COUNT(AUTO) 4.15 MIL/uL (4.5-6.0); RED CELL DISTRIBUTION WIDTH 13.2 % (11.5-15.0); WHITE BLOOD COUNT (AUTO) 5.2 K/uL (4.3-11.0)
[2023-10-05 07:00] LABS: CALCIUM, SERUM 9.6 mg/dL (8.5-10.1); CREATININE 1.1 mg/dL (0.6-1.3); POTASSIUM 3.8 mmol/L (3.5-5.1)
[2023-10-05 08:00] VITALS: BP 125/62; TEMP 97; O2SAT 98
[2023-10-05 09:07] VITALS: BP 128/62
[2023-10-05] MEDS: METOPROLOL TARTRATE 25 MG TABLET PO SCH (09:07)
[2023-10-05] MEDS: NYSTATIN (PYXIS) 500,000 UNIT/5 ML ORAL.SUSP PO SCH (09:08)
[2023-10-05] MEDS: ASPIRIN 81 MG TAB.CHEW PO SCH (09:08)
[2023-10-05] MEDS: FERROUS SULFATE (325 MG) 325 MG/TAB TABLET PO SCH (09:08)
[2023-10-05] MEDS: HALOPERIDOL 5 MG TABLET PO SCH (09:08)
[2023-10-05] MEDS: PANTOPRAZOLE 40 MG TABLET.DR PO SCH (09:08)
[2023-10-05] MEDS: CHOLECALCIFEROL 1,000 UNIT TABLET (VIT D3) PO SCH (09:08)
[2023-10-05] MEDS: CEFEPIME 2 GM in IV D5W 100 ML IV SCH (09:20)
[2023-10-05] MEDS ORDERED: AMOX-430 PO (09:59)
== END 2023-10-05 14:58 | DRG 177 ==
LOC: ER 20:09 → MED 23:21
PROVIDERS: ADMIT Nurse Practitioner Acute Care; ATTEND Internal Medicine
DX: J15.69 Pneumonia due to other Gram-negative bacteria (principal); G93.41 Metabolic encephalopathy; N17.0 Acute kidney failure with tubular necrosis; J96.91 Respiratory failure, unspecified with hypoxia; B37.0 Candidal stomatitis; E87.0 Hyperosmolality and hypernatremia; R64 Cachexia; E44.0 Moderate protein-calorie malnutrition; G30.9 Alzheimer's disease, unspecified; I10 Essential (primary) hypertension; E03.9 Hypothyroidism, unspecified; E78.5 Hyperlipidemia, unspecified; E66.01 Morbid (severe) obesity due to excess calories; E88.09 Other disorders of plasma-protein metabolism, not elsewhere classified; F20.9 Schizophrenia, unspecified; F32.A Depression, unspecified; Z79.82 Long term (current) use of aspirin; Z85.038 Personal history of other malignant neoplasm of large intestine; Z87.440 Personal history of urinary (tract) infections; Z20.822 Contact with and (suspected) exposure to COVID-19; Z68.24 Body mass index [BMI] 24.0-24.9, adult; F02.C0 Dementia in other diseases classified elsewhere, severe, without behavioral disturbance, psychotic disturbance, mood disturbance, and anxiety
CPT/HCPCS: 36415; 71045-TC; 80048-TC; 80053-TC; 80076-TC; 83605-TC; 83735-TC; 84100-TC; 84484-TC; 85025-TC; 85730-TC; 87040-TC; 87081-TC; 87086-TC; 92526; 92611-TC; 97110-TC; 97116-TC; 97530-TC; A4223; C9113; G0378; J0456; J0692; J1650; J2543; J3370; J3490; J7040; J7050; J7060

== ENCOUNTER 2023-10-21 20:28 | Inpatient (IN) | payer MEDICARE, OTHER ==
[~2023-10-21] VITALS: Ht 170.2 cm; Wt 68.0 kg
[~2023-10-21 20:28] MED LIST changes: +ACET-2605 GT; -ACET-2605 PO; +ACET325T53 GT; -ACET325T53 PO; +AMOX-430 PO; +ASPI-1169 GT; -ASPI-1169 PO; +CHOL100062 GT; -CHOL100062 PO; +FERR325T23 GT; -FERR325T23 PO; +HALO5TAB GT; -HALO5TAB PO; +MAG30ORA GT; -MAG30ORA PO; +METO25TA20 GT; -METO25TA20 PO; +MIRT-90 GT; -MIRT-90 PO; +TAMS-12 GT; -TAMS-12 PO
[2023-10-21] MEDS ORDERED: CEFTRIAXONE 1GM BAG (ER ONLY) 50 ML IV ONE ×2 (21:59→22:00)
[2023-10-21] MEDS ORDERED: AZITHROMYCIN 500 MG VIAL ONE (21:59)
[2023-10-21] MEDS ORDERED: AZITHROMYCIN 500 MG in IV D5W 250 ML IV ONE (22:00)
[2023-10-21 22:10] LABS: BASOPHILS # (AUTO) 0.1 K/uL (0.0-0.2); BASOPHILS % (AUTO) 0.5 % (0.0-2.0); EOSINOPHILS % (AUTO) 0.1 % (0.0-6.0); HEMATOCRIT 48 % (39-51); HEMOGLOBIN 15.3 g/dL (13.5-17.5); LYMPHOCYTES # (AUTO) 1.9 K/uL (0.8-4.8); LYMPHOCYTES % (AUTO) 16.4 % (20.0-44.0); MEAN CORPUSCULAR HEMOGLOBIN 31 PG (26.0-33.0); MEAN CORPUSCULAR HGB CONC 32 g/dl (31.0-36.0); MEAN CORPUSCULAR VOLUME 97 fL (80-96); MONOCYTES # (AUTO) 1.5 K/uL (0.1-1.30); MONOCYTES % (AUTO) 12.8 % (2.0-12.0); NEUTROPHILS # (AUTO) 8.1 K/uL (1.8-8.9); NEUTROPHILS % (AUTO) 70.2 % (43.0-81.0); PLATELET COUNT (AUTO) 161 K/uL (150-450); RED BLOOD CELL COUNT(AUTO) 4.96 MIL/uL (4.5-6.0); RED CELL DISTRIBUTION WIDTH 13.6 % (11.5-15.0); WHITE BLOOD COUNT (AUTO) 11.6 K/uL (4.3-11.0)
[2023-10-21 22:20] LABS: INR 1.18 (0.91-1.10); PARTIAL THROMBOPLASTIN TIME 26.9 SEC (24.3-34.3); PROTHROMBIN TIME 12.4 SECS (9.2-11.1)
[2023-10-21 22:44] LABS: LACTIC ACID 1.6 mmol/L (0.4-2.0)
[2023-10-21] MEDS ORDERED: ONDANSETRON HCL/PF 4 MG/2 ML VIAL IVP PRN (23:00)
[2023-10-21] MEDS ORDERED: ACETAMINOPHEN 325 MG TABLET PO PRN (23:00)
[2023-10-21] MEDS ORDERED: ZOLPIDEM TARTRATE 5 MG TABLET PO PRN (23:00)
[2023-10-21] MEDS ORDERED: Z GUARD REMEDY 4 OZ OINT TP PRN (23:00)
[2023-10-21] MEDS ORDERED: IV NS 0.9% 1,000 ML IV PRN (23:00)
[2023-10-21] MEDS ORDERED: MAG HYDROX/AL HYDROX/SIMETH 30 ML UDC PO PRN (23:00)
[2023-10-21] MEDS ORDERED: MAGNESIUM HYDROXIDE 30 ML UDC PO PRN (23:00)
[2023-10-21 23:05] LABS: CARBON DIOXIDE 28 mmol/L (21-32); CREATININE 1.9 mg/dL (0.6-1.3); GLUCOSE 101 mg/dL (74-106); POTASSIUM 4.1 mmol/L (3.5-5.1); UREA NITROGEN, BLOOD 68 mg/dL (7-18)
[2023-10-21 23:10] LABS: ALANINE AMINOTRANSFERASE 51 U/L (12-78); ALKALINE PHOSPHATASE 76 U/L (46-116); ASPARTATE AMINOTRANSFERASE 48 U/L (15-37); BILIRUBIN,DIRECT 0.3 mg/dL (0.0-0.2); BILIRUBIN,TOTAL 0.8 mg/dL (0.2-1.0); TOTAL PROTEIN, SERUM 8.5 g/dL (6.4-8.2)
[2023-10-21 23:12] LABS: CHLORIDE 128 mmol/L (98-107); SODIUM SERUM 167 mmol/L (136-145)
[2023-10-22] MEDS ORDERED: IV NS 0.9% 1,000 ML BAG IV ONE
[2023-10-22] MEDS ORDERED: SENNOSIDES 8.6 MG TABLET PO PRN (00:30)
[2023-10-22] MEDS ORDERED: ACETAMINOPHEN 325 MG TABLET PO PRN (00:30)
[2023-10-22] MEDS ORDERED: ACETAMINOPHEN ES 500 MG TABLET PO PRN (00:30)
[2023-10-22 05:55] LABS: BASOPHILS # (AUTO) 0.1 K/uL (0.0-0.2); BASOPHILS % (AUTO) 0.4 % (0.0-2.0); HEMATOCRIT 43 % (39-51); HEMOGLOBIN 13.9 g/dL (13.5-17.5); LYMPHOCYTES # (AUTO) 1.4 K/uL (0.8-4.8); LYMPHOCYTES % (AUTO) 10.4 % (20.0-44.0); MEAN CORPUSCULAR HEMOGLOBIN 31 PG (26.0-33.0); MEAN CORPUSCULAR HGB CONC 32 g/dl (31.0-36.0); MEAN CORPUSCULAR VOLUME 97 fL (80-96); MONOCYTES # (AUTO) 1.4 K/uL (0.1-1.30); NEUTROPHILS # (AUTO) 10.8 K/uL (1.8-8.9); NEUTROPHILS % (AUTO) 79.2 % (43.0-81.0); PLATELET COUNT (AUTO) 133 K/uL (150-450); RED BLOOD CELL COUNT(AUTO) 4.44 MIL/uL (4.5-6.0); RED CELL DISTRIBUTION WIDTH 13.5 % (11.5-15.0); WHITE BLOOD COUNT (AUTO) 13.6 K/uL (4.3-11.0)
[2023-10-22 06:13] LABS: CALCIUM, SERUM 9.9 mg/dL (8.5-10.1); CARBON DIOXIDE 25 mmol/L (21-32); CREATININE 1.8 mg/dL (0.6-1.3); GLUCOSE 125 mg/dL (74-106); MAGNESIUM 2.7 mg/dL (1.8-2.4); PHOSPHORUS 3.1 mg/dL (2.5-4.9); POTASSIUM 3.6 mmol/L (3.5-5.1); UREA NITROGEN, BLOOD 61 mg/dL (7-18)
[2023-10-22 06:30] LABS: CHLORIDE 129 mmol/L (98-107); SODIUM SERUM 167 mmol/L (136-145)
[2023-10-22 08:00] VITALS: BP 132/78; TEMP 98.2; O2SAT 95
[2023-10-22] MEDS ORDERED: PETR113O TP (08:09)
[2023-10-22] MEDS ORDERED: POVI3780 TP (08:09)
[2023-10-22] MEDS ORDERED: ZINC220C6 GT (08:09)
[2023-10-22] MEDS ORDERED: PANT40TA2 GT (08:09)
[2023-10-22] MEDS ORDERED: NYST5ORA PO (08:09)
[2023-10-22] MEDS ORDERED: ACET-868 PO (08:09)
[2023-10-22] MEDS ORDERED: ASCO-340 GT (08:09)
[2023-10-22] MEDS ORDERED: ENOX40DI SQ (08:09)
[2023-10-22] MEDS ORDERED: MENT113O TP (08:09)
[2023-10-22] MEDS ORDERED: PETR71OI2 TP (08:09)
[2023-10-22] MEDS ORDERED: MULT-213 PO (08:09)
[2023-10-22] MEDS ORDERED: FLUC100T PO (08:09)
[2023-10-22 08:35] VITALS: BP 117/58; TEMP 98.2; O2SAT 97
[2023-10-22] MEDS: METOPROLOL TARTRATE 25 MG TABLET PO SCH ×2 (09:00→21:00)
[2023-10-22] MEDS: FERROUS SULFATE (325 MG) 325 MG/TAB TABLET PO SCH ×2 (09:00→17:00)
[2023-10-22] MEDS: HALOPERIDOL 5 MG TABLET PO SCH ×2 (09:00→17:00)
[2023-10-22] MEDS: CHOLECALCIFEROL 1,000 UNIT TABLET (VIT D3) PO SCH (09:00)
[2023-10-22] MEDS: ASPIRIN 81 MG TAB.CHEW PO SCH (09:00)
[2023-10-22] MEDS ORDERED: IV 1/2NS 1000 ML 1,000 ML IV PRN (10:00)
[2023-10-22 12:00] VITALS: BP 109/56; TEMP 98.4; O2SAT 96
[2023-10-22] MEDS: NYSTATIN (PYXIS) 500,000 UNIT/5 ML ORAL.SUSP PO SCH ×3 (12:31→21:00)
[2023-10-22] MEDS: IV 1/2NS 1000 ML 1,000 ML IV PRN (13:13)
[2023-10-22 16:28] VITALS: BP 122/58; TEMP 98; O2SAT 95
[2023-10-22 20:00] VITALS: BP 114/57; TEMP 98.8; O2SAT 95
[2023-10-22] MEDS: TAMSULOSIN 0.4 MG CAP.SR.24H PO SCH (22:00)
[2023-10-22] MEDS: MIRTAZAPINE 15 MG TABLET PO SCH (22:00)
[2023-10-22] MEDS: CEFTRIAXONE 1 G in IV D5W 50 ML IV SCH (22:24)
[2023-10-22] MEDS: AZITHROMYCIN 500 MG in IV D5W 250 ML IV SCH (22:29)
[2023-10-23] VITALS: BP 103/59; TEMP 98.4; O2SAT 95
[2023-10-23] MEDS: IV 1/2NS 1000 ML 1,000 ML IV PRN ×2 (02:49→13:37)
[2023-10-23 04:00] VITALS: BP 122/55; TEMP 98.2; O2SAT 95
[2023-10-23 06:32] LABS: BASOPHILS % (AUTO) 0.2 % (0.0-2.0); EOSINOPHILS # (AUTO) 0.1 K/uL (0.0-0.7); EOSINOPHILS % (AUTO) 1.2 % (0.0-6.0); HEMATOCRIT 39 % (39-51); HEMOGLOBIN 12.5 g/dL (13.5-17.5); LYMPHOCYTES # (AUTO) 1.2 K/uL (0.8-4.8); LYMPHOCYTES % (AUTO) 9.6 % (20.0-44.0); MEAN CORPUSCULAR HEMOGLOBIN 31 PG (26.0-33.0); MEAN CORPUSCULAR HGB CONC 32 g/dl (31.0-36.0); MEAN CORPUSCULAR VOLUME 98 fL (80-96); MONOCYTES % (AUTO) 8.5 % (2.0-12.0); NEUTROPHILS # (AUTO) 9.9 K/uL (1.8-8.9); NEUTROPHILS % (AUTO) 80.5 % (43.0-81.0); PLATELET COUNT (AUTO) 109 K/uL (150-450); RED BLOOD CELL COUNT(AUTO) 4.03 MIL/uL (4.5-6.0); RED CELL DISTRIBUTION WIDTH 13.7 % (11.5-15.0); WHITE BLOOD COUNT (AUTO) 12.2 K/uL (4.3-11.0)
[2023-10-23 07:02] LABS: CALCIUM, SERUM 10.3 mg/dL (8.5-10.1); CARBON DIOXIDE 26 mmol/L (21-32); CREATININE 1.6 mg/dL (0.6-1.3); GLUCOSE 114 mg/dL (74-106); MAGNESIUM 2.6 mg/dL (1.8-2.4); PHOSPHORUS 2.9 mg/dL (2.5-4.9); POTASSIUM 3.2 mmol/L (3.5-5.1); UREA NITROGEN, BLOOD 54 mg/dL (7-18)
[2023-10-23 07:05] LABS: CHLORIDE 128 mmol/L (98-107); SODIUM SERUM 164 mmol/L (136-145)
[2023-10-23 08:00] VITALS: BP 125/56; TEMP 97.9; O2SAT 96
[2023-10-23] MEDS: VITAL AF 1.2 1,000 ML BOTTLE GT PRN (08:56)
[2023-10-23] MEDS: NYSTATIN (PYXIS) 500,000 UNIT/5 ML ORAL.SUSP PO SCH ×4 (08:56→21:49)
[2023-10-23] MEDS: HALOPERIDOL 5 MG TABLET PO SCH ×2 (08:57→16:56)
[2023-10-23] MEDS: METOPROLOL TARTRATE 25 MG TABLET PO SCH ×2 (08:57→21:50)
[2023-10-23] MEDS: FERROUS SULFATE (325 MG) 325 MG/TAB TABLET PO SCH ×2 (08:57→16:56)
[2023-10-23] MEDS: ASPIRIN 81 MG TAB.CHEW PO SCH (08:57)
[2023-10-23] MEDS: CHOLECALCIFEROL 1,000 UNIT TABLET (VIT D3) PO SCH (08:58)
[2023-10-23] MEDS ORDERED: POTASSIUM CHLORIDE 20 MEQ POWDER PACKET GT ONE (10:00)
[2023-10-23 16:00] VITALS: BP 110/55; TEMP 98.2; O2SAT 96
[2023-10-23] MEDS: CEFTRIAXONE 1 G in IV D5W 50 ML IV SCH (21:38)
[2023-10-23] MEDS: MIRTAZAPINE 15 MG TABLET PO SCH (21:49)
[2023-10-23] MEDS: TAMSULOSIN 0.4 MG CAP.SR.24H PO SCH (21:49)
[2023-10-23] MEDS: AZITHROMYCIN 500 MG in IV D5W 250 ML IV SCH (22:31)
[2023-10-24] VITALS: BP 108/50; TEMP 98.4; O2SAT 96
[2023-10-24] MEDS: IV 1/2NS 1000 ML 1,000 ML IV PRN ×2 (03:09→13:36)
[2023-10-24 07:20] LABS: BASOPHILS % (AUTO) 0.1 % (0.0-2.0); EOSINOPHILS # (AUTO) 0.6 K/uL (0.0-0.7); EOSINOPHILS % (AUTO) 6.4 % (0.0-6.0); HEMATOCRIT 37 % (39-51); HEMOGLOBIN 11.8 g/dL (13.5-17.5); LYMPHOCYTES # (AUTO) 1.1 K/uL (0.8-4.8); LYMPHOCYTES % (AUTO) 12.8 % (20.0-44.0); MEAN CORPUSCULAR HEMOGLOBIN 31 PG (26.0-33.0); MEAN CORPUSCULAR HGB CONC 32 g/dl (31.0-36.0); MEAN CORPUSCULAR VOLUME 97 fL (80-96); MONOCYTES # (AUTO) 0.8 K/uL (0.1-1.30); MONOCYTES % (AUTO) 8.8 % (2.0-12.0); NEUTROPHILS # (AUTO) 6.3 K/uL (1.8-8.9); NEUTROPHILS % (AUTO) 71.9 % (43.0-81.0); PLATELET COUNT (AUTO) 93 K/uL (150-450); RED BLOOD CELL COUNT(AUTO) 3.77 MIL/uL (4.5-6.0); RED CELL DISTRIBUTION WIDTH 13.7 % (11.5-15.0); WHITE BLOOD COUNT (AUTO) 8.8 K/uL (4.3-11.0)
[2023-10-24 07:37] LABS: ALBUMIN 2.1 g/dL (3.4-5.0); BILIRUBIN,TOTAL 0.5 mg/dL (0.2-1.0); CALCIUM, SERUM 9.9 mg/dL (8.5-10.1); CREATININE 1.3 mg/dL (0.6-1.3); MAGNESIUM 2.7 mg/dL (1.8-2.4); PHOSPHORUS 2.3 mg/dL (2.5-4.9); TOTAL PROTEIN, SERUM 6.4 g/dL (6.4-8.2)
[2023-10-24 07:41] LABS: POTASSIUM 3.1 mmol/L (3.5-5.1)
[2023-10-24 08:00] VITALS: BP 117/58; TEMP 97.9; O2SAT 99
[2023-10-24] MEDS ORDERED: MAGNESIUM HYDROXIDE 30 ML UDC GT PRN (08:11)
[2023-10-24] MEDS ORDERED: MAG HYDROX/AL HYDROX/SIMETH 30 ML UDC GT PRN (08:11)
[2023-10-24] MEDS ORDERED: SENNOSIDES 8.6 MG TABLET GT PRN (08:12)
[2023-10-24] MEDS: NYSTATIN (PYXIS) 500,000 UNIT/5 ML ORAL.SUSP GT SCH ×4 (08:23→21:29)
[2023-10-24] MEDS: ASPIRIN 81 MG TAB.CHEW GT SCH (08:24)
[2023-10-24] MEDS: HALOPERIDOL 5 MG TABLET GT SCH ×2 (08:24→16:09)
[2023-10-24] MEDS: METOPROLOL TARTRATE 25 MG TABLET GT SCH ×2 (08:24→21:28)
[2023-10-24] MEDS: FERROUS SULFATE (325 MG) 325 MG/TAB TABLET GT SCH ×2 (08:24→16:09)
[2023-10-24] MEDS: CHOLECALCIFEROL 1,000 UNIT TABLET (VIT D3) GT SCH (08:24)
[2023-10-24] MEDS ORDERED: ACETAMINOPHEN 650 MG/20.3 ML UDC GT PRN (08:30)
[2023-10-24] MEDS: VITAL AF 1.2 1,000 ML BOTTLE GT PRN (09:50)
[2023-10-24] MEDS ORDERED: POTASSIUM CHLORIDE 20 MEQ POWDER PACKET GT ONE (10:00)
[2023-10-24 10:37] LABS: ANISOCYTOSIS 1+; BASOPHILS % (MANUAL) 0 % (0.0-2.0); EOSINOPHILS % (MANUAL) 5 % (0-4); LYMPHOCYTES % (MANUAL) 10 % (16-48); MONOCYTES % (MANUAL) 9 % (0-11.0); NEUTROPHILS % (MANUAL) 76 (42-76); PLATELET ESTIMATE DECREASED
[2023-10-24 16:00] VITALS: BP 101/43; TEMP 98.2; O2SAT 99
[2023-10-24] MEDS ORDERED: NEUTRA PHOS 1 POWD.PACKET NG ONE (16:30)
[2023-10-24] MEDS: TAMSULOSIN 0.4 MG CAP.SR.24H GT SCH (21:29)
[2023-10-24] MEDS: MIRTAZAPINE 15 MG TABLET GT SCH (21:29)
[2023-10-24] MEDS: CEFTRIAXONE 1 G in IV D5W 50 ML IV SCH (22:19)
[2023-10-24] MEDS: AZITHROMYCIN 250 MG TABLET GT SCH (22:21)
[2023-10-25] VITALS: BP 115/56; TEMP 97.8; O2SAT 99
[2023-10-25 06:22] LABS: BASOPHILS % (AUTO) 0.4 % (0.0-2.0); EOSINOPHILS # (AUTO) 0.5 K/uL (0.0-0.7); EOSINOPHILS % (AUTO) 5.8 % (0.0-6.0); HEMATOCRIT 38 % (39-51); HEMOGLOBIN 12.3 g/dL (13.5-17.5); LYMPHOCYTES # (AUTO) 1.2 K/uL (0.8-4.8); LYMPHOCYTES % (AUTO) 15.3 % (20.0-44.0); MEAN CORPUSCULAR HEMOGLOBIN 31 PG (26.0-33.0); MEAN CORPUSCULAR HGB CONC 32 g/dl (31.0-36.0); MEAN CORPUSCULAR VOLUME 98 fL (80-96); MONOCYTES # (AUTO) 0.8 K/uL (0.1-1.30); MONOCYTES % (AUTO) 10.5 % (2.0-12.0); NEUTROPHILS # (AUTO) 5.5 K/uL (1.8-8.9); PLATELET COUNT (AUTO) 99 K/uL (150-450); RED BLOOD CELL COUNT(AUTO) 3.92 MIL/uL (4.5-6.0); RED CELL DISTRIBUTION WIDTH 13.8 % (11.5-15.0); WHITE BLOOD COUNT (AUTO) 8.1 K/uL (4.3-11.0)
[2023-10-25] MEDS: VITAL AF 1.2 1,000 ML BOTTLE GT PRN (06:38)
[2023-10-25] MEDS: IV 1/2NS 1000 ML 1,000 ML IV PRN ×2 (06:40→21:48)
[2023-10-25 06:50] LABS: CALCIUM, SERUM 9.8 mg/dL (8.5-10.1); CREATININE 1.1 mg/dL (0.6-1.3); MAGNESIUM 2.6 mg/dL (1.8-2.4); PHOSPHORUS 3.8 mg/dL (2.5-4.9); POTASSIUM 3.9 mmol/L (3.5-5.1)
[2023-10-25 08:00] VITALS: BP 126/60; TEMP 98; O2SAT 99
[2023-10-25 08:09] LABS: PTH, INTACT 15 pg/mL (15-65)
[2023-10-25] MEDS: CHOLECALCIFEROL 1,000 UNIT TABLET (VIT D3) GT SCH (08:42)
[2023-10-25] MEDS: NYSTATIN (PYXIS) 500,000 UNIT/5 ML ORAL.SUSP GT SCH ×4 (08:42→20:22)
[2023-10-25] MEDS: ASPIRIN 81 MG TAB.CHEW GT SCH (08:42)
[2023-10-25] MEDS: FERROUS SULFATE (325 MG) 325 MG/TAB TABLET GT SCH ×2 (08:42→16:06)
[2023-10-25] MEDS: HALOPERIDOL 5 MG TABLET GT SCH ×2 (08:42→16:06)
[2023-10-25] MEDS: METOPROLOL TARTRATE 25 MG TABLET GT SCH ×2 (08:43→20:22)
[2023-10-25 13:13] LABS: *SPE A/G RATIO 0.7 (0.7-1.7); *SPE ALBUMIN 2.4 g/dL (2.9-4.4); *SPE ALPHA-1-GLOBULIN 0.3 g/dL (0.0-0.4); *SPE BETA GLOBULIN 0.8 g/dL (0.7-1.3); *SPE GLOBULIN, TOTAL 3.3 g/dL (2.2-3.9); *SPE M-SPIKE Not Observed g/dL (Not Observed); *SPE PROTEIN TOTAL 5.7 g/dL (6.0-8.5); *SPEGAMMA GLOBULIN 1.2 g/dL (0.4-1.8)
[2023-10-25 16:00] VITALS: BP 102/52; TEMP 98.8; O2SAT 99
[2023-10-25] MEDS: AZITHROMYCIN 250 MG TABLET GT SCH (21:34)
[2023-10-25] MEDS: CEFTRIAXONE 1 G in IV D5W 50 ML IV SCH (21:34)
[2023-10-25] MEDS: TAMSULOSIN 0.4 MG CAP.SR.24H GT SCH (21:34)
[2023-10-25] MEDS: MIRTAZAPINE 15 MG TABLET GT SCH (21:34)
[2023-10-26] MEDS: VITAL AF 1.2 1,000 ML BOTTLE GT PRN ×2 (01:09→17:09)
[2023-10-26 01:28] VITALS: BP 111/52; TEMP 98.8; O2SAT 99
[2023-10-26 06:43] LABS: BASOPHILS % (AUTO) 0.2 % (0.0-2.0); EOSINOPHILS # (AUTO) 0.3 K/uL (0.0-0.7); EOSINOPHILS % (AUTO) 4.4 % (0.0-6.0); HEMATOCRIT 36 % (39-51); HEMOGLOBIN 11.7 g/dL (13.5-17.5); LYMPHOCYTES # (AUTO) 1.3 K/uL (0.8-4.8); LYMPHOCYTES % (AUTO) 18.9 % (20.0-44.0); MEAN CORPUSCULAR HEMOGLOBIN 32 PG (26.0-33.0); MEAN CORPUSCULAR HGB CONC 33 g/dl (31.0-36.0); MEAN CORPUSCULAR VOLUME 97 fL (80-96); MONOCYTES # (AUTO) 0.8 K/uL (0.1-1.30); MONOCYTES % (AUTO) 12.2 % (2.0-12.0); NEUTROPHILS # (AUTO) 4.3 K/uL (1.8-8.9); NEUTROPHILS % (AUTO) 64.3 % (43.0-81.0); PLATELET COUNT (AUTO) 88 K/uL (150-450); RED BLOOD CELL COUNT(AUTO) 3.68 MIL/uL (4.5-6.0); RED CELL DISTRIBUTION WIDTH 13.4 % (11.5-15.0); WHITE BLOOD COUNT (AUTO) 6.7 K/uL (4.3-11.0)
[2023-10-26 07:01] LABS: CALCIUM, SERUM 9.3 mg/dL (8.5-10.1); CREATININE 1.1 mg/dL (0.6-1.3); MAGNESIUM 2.3 mg/dL (1.8-2.4); PHOSPHORUS 3.5 mg/dL (2.5-4.9); POTASSIUM 3.5 mmol/L (3.5-5.1)
[2023-10-26 08:00] VITALS: BP 111/52; TEMP 98.2; O2SAT 97
[2023-10-26] MEDS: NYSTATIN (PYXIS) 500,000 UNIT/5 ML ORAL.SUSP GT SCH ×4 (09:34→22:32)
[2023-10-26] MEDS: CHOLECALCIFEROL 1,000 UNIT TABLET (VIT D3) GT SCH (09:34)
[2023-10-26] MEDS: FERROUS SULFATE (325 MG) 325 MG/TAB TABLET GT SCH ×2 (09:35→17:12)
[2023-10-26] MEDS: HALOPERIDOL 5 MG TABLET GT SCH ×2 (09:35→17:12)
[2023-10-26] MEDS: ASPIRIN 81 MG TAB.CHEW GT SCH (09:35)
[2023-10-26] MEDS: METOPROLOL TARTRATE 25 MG TABLET GT SCH ×2 (09:36→22:30)
[2023-10-26] MEDS ORDERED: IV D5W 1,000 ML IV ONE (10:00)
[2023-10-26 11:54] LABS: ANISOCYTOSIS 1+; BASOPHILS % (MANUAL) 0 % (0.0-2.0); EOSINOPHILS % (MANUAL) 3 % (0-4); LYMPHOCYTES % (MANUAL) 14 % (16-48); MONOCYTES % (MANUAL) 10 % (0-11.0); NEUTROPHILS % (MANUAL) 73 (42-76); PLATELET ESTIMATE DECREASED
[2023-10-26 14:50] LABS: CALCIUM, SERUM 9.5 mg/dL (8.5-10.1); CARBON DIOXIDE 23 mmol/L (21-32); GLUCOSE 147 mg/dL (74-106); POTASSIUM 3.4 mmol/L (3.5-5.1); UREA NITROGEN, BLOOD 39 mg/dL (7-18)
[2023-10-26 14:53] LABS: CHLORIDE 127 mmol/L (98-107)
[2023-10-26 14:54] LABS: SODIUM SERUM 158 mmol/L (136-145)
[2023-10-26 16:00] VITALS: BP 125/57; TEMP 97.9; O2SAT 96
[2023-10-26] MEDS: IV D5W 1,000 ML IV PRN (18:49)
[2023-10-26 20:00] VITALS: BP 142/62; TEMP 98.6; O2SAT 97
[2023-10-26] MEDS: TAMSULOSIN 0.4 MG CAP.SR.24H GT SCH (22:00)
[2023-10-26] MEDS: MIRTAZAPINE 15 MG TABLET GT SCH (22:31)
[2023-10-26] MEDS: CEFTRIAXONE 1 G in IV D5W 50 ML IV SCH (22:32)
[2023-10-27 04:00] VITALS: BP 121/54; TEMP 97.9; O2SAT 99
[2023-10-27] MEDS: IV D5W 1,000 ML IV PRN ×2 (06:39→18:10)
[2023-10-27 07:46] LABS: BASOPHILS % (AUTO) 0.2 % (0.0-2.0); EOSINOPHILS # (AUTO) 0.2 K/uL (0.0-0.7); EOSINOPHILS % (AUTO) 2.9 % (0.0-6.0); HEMATOCRIT 34 % (39-51); LYMPHOCYTES # (AUTO) 0.9 K/uL (0.8-4.8); LYMPHOCYTES % (AUTO) 12.1 % (20.0-44.0); MEAN CORPUSCULAR HEMOGLOBIN 32 PG (26.0-33.0); MEAN CORPUSCULAR HGB CONC 33 g/dl (31.0-36.0); MEAN CORPUSCULAR VOLUME 96 fL (80-96); MONOCYTES # (AUTO) 0.7 K/uL (0.1-1.30); MONOCYTES % (AUTO) 9.4 % (2.0-12.0); NEUTROPHILS # (AUTO) 5.8 K/uL (1.8-8.9); NEUTROPHILS % (AUTO) 75.4 % (43.0-81.0); PLATELET COUNT (AUTO) 95 K/uL (150-450); RED BLOOD CELL COUNT(AUTO) 3.48 MIL/uL (4.5-6.0); RED CELL DISTRIBUTION WIDTH 13.3 % (11.5-15.0); WHITE BLOOD COUNT (AUTO) 7.7 K/uL (4.3-11.0)
[2023-10-27 08:00] LABS: CALCIUM, SERUM 9.4 mg/dL (8.5-10.1); CREATININE 0.9 mg/dL (0.6-1.3); MAGNESIUM 2.4 mg/dL (1.8-2.4); PHOSPHORUS 2.8 mg/dL (2.5-4.9); POTASSIUM 3.7 mmol/L (3.5-5.1)
[2023-10-27] MEDS ORDERED: IV D5W 1,000 ML IV ONE (09:00)
[2023-10-27] MEDS: METOPROLOL TARTRATE 25 MG TABLET GT SCH ×2 (09:00→21:49)
[2023-10-27] MEDS: HALOPERIDOL 5 MG TABLET GT SCH ×2 (09:46→17:32)
[2023-10-27] MEDS: NYSTATIN (PYXIS) 500,000 UNIT/5 ML ORAL.SUSP GT SCH ×4 (09:46→21:49)
[2023-10-27] MEDS: ASPIRIN 81 MG TAB.CHEW GT SCH (09:46)
[2023-10-27] MEDS: CHOLECALCIFEROL 1,000 UNIT TABLET (VIT D3) GT SCH (09:46)
[2023-10-27] MEDS: FERROUS SULFATE (325 MG) 325 MG/TAB TABLET GT SCH ×2 (09:46→17:32)
[2023-10-27 12:00] VITALS: BP 98/65; TEMP 97.9; O2SAT 97
[2023-10-27 12:38] LABS: ANISOCYTOSIS 1+; BASOPHILS % (MANUAL) 0 % (0.0-2.0); EOSINOPHILS % (MANUAL) 2 % (0-4); LYMPHOCYTES % (MANUAL) 14 % (16-48); MONOCYTES % (MANUAL) 8 % (0-11.0); NEUTROPHILS % (MANUAL) 76 (42-76); PLATELET ESTIMATE DECREASED; STOMATOCYTES 1+
[2023-10-27 14:56] LABS: CARBON DIOXIDE 23 mmol/L (21-32); CHLORIDE 122 mmol/L (98-107); GLUCOSE 161 mg/dL (74-106); POTASSIUM 3.5 mmol/L (3.5-5.1); SODIUM SERUM 153 mmol/L (136-145); UREA NITROGEN, BLOOD 34 mg/dL (7-18)
[2023-10-27] MEDS: VITAL AF 1.2 1,000 ML BOTTLE GT PRN (18:08)
[2023-10-27 20:00] VITALS: BP 130/81; TEMP 98.5; O2SAT 95
[2023-10-27] MEDS: MIRTAZAPINE 15 MG TABLET GT SCH (21:58)
[2023-10-27] MEDS: TAMSULOSIN 0.4 MG CAP.SR.24H GT SCH (21:58)
[2023-10-27] MEDS: CEFTRIAXONE 1 G in IV D5W 50 ML IV SCH (22:00)
[2023-10-28] MEDS: IV D5W 1,000 ML IV PRN ×3 (03:00→22:04)
[2023-10-28 04:00] VITALS: BP 124/75; TEMP 98; O2SAT 96
[2023-10-28 06:59] LABS: BASOPHILS % (AUTO) 0.4 % (0.0-2.0); EOSINOPHILS # (AUTO) 0.3 K/uL (0.0-0.7); EOSINOPHILS % (AUTO) 4.4 % (0.0-6.0); HEMATOCRIT 31 % (39-51); HEMOGLOBIN 10.2 g/dL (13.5-17.5); LYMPHOCYTES # (AUTO) 1.3 K/uL (0.8-4.8); LYMPHOCYTES % (AUTO) 17.8 % (20.0-44.0); MEAN CORPUSCULAR HEMOGLOBIN 32 PG (26.0-33.0); MEAN CORPUSCULAR HGB CONC 33 g/dl (31.0-36.0); MEAN CORPUSCULAR VOLUME 96 fL (80-96); MONOCYTES # (AUTO) 0.8 K/uL (0.1-1.30); MONOCYTES % (AUTO) 11.5 % (2.0-12.0); NEUTROPHILS # (AUTO) 4.9 K/uL (1.8-8.9); NEUTROPHILS % (AUTO) 65.9 % (43.0-81.0); PLATELET COUNT (AUTO) 100 K/uL (150-450); RED BLOOD CELL COUNT(AUTO) 3.23 MIL/uL (4.5-6.0); RED CELL DISTRIBUTION WIDTH 13.2 % (11.5-15.0); WHITE BLOOD COUNT (AUTO) 7.4 K/uL (4.3-11.0)
[2023-10-28 07:18] LABS: CALCIUM, SERUM 9.1 mg/dL (8.5-10.1); CREATININE 0.9 mg/dL (0.6-1.3); MAGNESIUM 2.2 mg/dL (1.8-2.4); PHOSPHORUS 2.7 mg/dL (2.5-4.9); POTASSIUM 3.4 mmol/L (3.5-5.1)
[2023-10-28 08:00] VITALS: BP 108/46; TEMP 98.8; O2SAT 96
[2023-10-28] MEDS: FERROUS SULFATE (325 MG) 325 MG/TAB TABLET GT SCH ×2 (08:59→16:28)
[2023-10-28] MEDS: NYSTATIN (PYXIS) 500,000 UNIT/5 ML ORAL.SUSP GT SCH ×4 (08:59→21:44)
[2023-10-28] MEDS: CHOLECALCIFEROL 1,000 UNIT TABLET (VIT D3) GT SCH (08:59)
[2023-10-28] MEDS: METOPROLOL TARTRATE 25 MG TABLET GT SCH ×2 (08:59→21:00)
[2023-10-28] MEDS: HALOPERIDOL 5 MG TABLET GT SCH ×2 (08:59→16:28)
[2023-10-28] MEDS: ASPIRIN 81 MG TAB.CHEW GT SCH (08:59)
[2023-10-28] MEDS ORDERED: POTASSIUM CHLORIDE 20 MEQ POWDER PACKET NG SCH (11:00)
[2023-10-28] MEDS: VITAL AF 1.2 1,000 ML BOTTLE GT PRN (12:06)
[2023-10-28 16:00] VITALS: BP 107/45; TEMP 98.7; O2SAT 96
[2023-10-28 20:00] VITALS: BP 93/63; TEMP 97.7; O2SAT 97
[2023-10-28] MEDS: MIRTAZAPINE 15 MG TABLET GT SCH (21:44)
[2023-10-28] MEDS: TAMSULOSIN 0.4 MG CAP.SR.24H GT SCH (21:44)
[2023-10-28] MEDS: CEFTRIAXONE 1 G in IV D5W 50 ML IV SCH (22:06)
[2023-10-29] VITALS: BP 119/59; TEMP 98.4; O2SAT 96
[2023-10-29 06:42] LABS: BASOPHILS % (AUTO) 0.4 % (0.0-2.0); EOSINOPHILS # (AUTO) 0.4 K/uL (0.0-0.7); EOSINOPHILS % (AUTO) 4.9 % (0.0-6.0); HEMATOCRIT 31 % (39-51); HEMOGLOBIN 10.3 g/dL (13.5-17.5); LYMPHOCYTES # (AUTO) 1.3 K/uL (0.8-4.8); LYMPHOCYTES % (AUTO) 18.4 % (20.0-44.0); MEAN CORPUSCULAR HEMOGLOBIN 31 PG (26.0-33.0); MEAN CORPUSCULAR HGB CONC 33 g/dl (31.0-36.0); MEAN CORPUSCULAR VOLUME 95 fL (80-96); MONOCYTES # (AUTO) 0.8 K/uL (0.1-1.30); MONOCYTES % (AUTO) 11.1 % (2.0-12.0); NEUTROPHILS # (AUTO) 4.7 K/uL (1.8-8.9); NEUTROPHILS % (AUTO) 65.2 % (43.0-81.0); PLATELET COUNT (AUTO) 114 K/uL (150-450); RED CELL DISTRIBUTION WIDTH 13.2 % (11.5-15.0); WHITE BLOOD COUNT (AUTO) 7.3 K/uL (4.3-11.0)
[2023-10-29 07:17] LABS: CALCIUM, SERUM 9.5 mg/dL (8.5-10.1); CARBON DIOXIDE 26 mmol/L (21-32); CHLORIDE 112 mmol/L (98-107); CREATININE 0.9 mg/dL (0.6-1.3); GLUCOSE 118 mg/dL (74-106); MAGNESIUM 2.1 mg/dL (1.8-2.4); PHOSPHORUS 2.9 mg/dL (2.5-4.9); POTASSIUM 3.6 mmol/L (3.5-5.1); SODIUM SERUM 146 mmol/L (136-145); UREA NITROGEN, BLOOD 28 mg/dL (7-18)
[2023-10-29] MEDS: ASPIRIN 81 MG TAB.CHEW GT SCH (09:36)
[2023-10-29] MEDS: FERROUS SULFATE (325 MG) 325 MG/TAB TABLET GT SCH ×2 (09:36→17:14)
[2023-10-29] MEDS: CHOLECALCIFEROL 1,000 UNIT TABLET (VIT D3) GT SCH (09:36)
[2023-10-29] MEDS: NYSTATIN (PYXIS) 500,000 UNIT/5 ML ORAL.SUSP GT SCH ×4 (09:36→21:53)
[2023-10-29] MEDS: METOPROLOL TARTRATE 25 MG TABLET GT SCH ×2 (09:37→21:53)
[2023-10-29] MEDS: HALOPERIDOL 5 MG TABLET GT SCH ×2 (09:37→17:15)
[2023-10-29 10:00] VITALS: BP 120/70; TEMP 99; O2SAT 99
[2023-10-29 16:00] VITALS: BP 102/50; TEMP 98.8
[2023-10-29] MEDS ORDERED: ANESTHESIA TRAY IN PYXIS 1 EA TRAY MC ONE (16:16)
[2023-10-29] MEDS: MIRTAZAPINE 15 MG TABLET GT SCH (21:53)
[2023-10-29] MEDS: TAMSULOSIN 0.4 MG CAP.SR.24H GT SCH (21:53)
[2023-10-29] MEDS: CEFTRIAXONE 1 G in IV D5W 50 ML IV SCH (21:54)
[2023-10-30] VITALS: BP 124/65; TEMP 97.6; O2SAT 99
[2023-10-30 07:49] LABS: BASOPHILS % (AUTO) 0.4 % (0.0-2.0); EOSINOPHILS # (AUTO) 0.3 K/uL (0.0-0.7); EOSINOPHILS % (AUTO) 4.3 % (0.0-6.0); HEMATOCRIT 32 % (39-51); HEMOGLOBIN 10.3 g/dL (13.5-17.5); LYMPHOCYTES # (AUTO) 1.4 K/uL (0.8-4.8); LYMPHOCYTES % (AUTO) 18.8 % (20.0-44.0); MEAN CORPUSCULAR HEMOGLOBIN 31 PG (26.0-33.0); MEAN CORPUSCULAR HGB CONC 33 g/dl (31.0-36.0); MEAN CORPUSCULAR VOLUME 96 fL (80-96); MONOCYTES # (AUTO) 0.7 K/uL (0.1-1.30); MONOCYTES % (AUTO) 9.5 % (2.0-12.0); PLATELET COUNT (AUTO) 140 K/uL (150-450); RED CELL DISTRIBUTION WIDTH 13.2 % (11.5-15.0); WHITE BLOOD COUNT (AUTO) 7.5 K/uL (4.3-11.0)
[2023-10-30 08:05] LABS: CREATININE 0.8 mg/dL (0.6-1.3); MAGNESIUM 2.3 mg/dL (1.8-2.4); PHOSPHORUS 4.1 mg/dL (2.5-4.9); POTASSIUM 3.7 mmol/L (3.5-5.1)
[2023-10-30] MEDS: HALOPERIDOL 5 MG TABLET GT SCH ×2 (08:18→16:26)
[2023-10-30] MEDS: NYSTATIN (PYXIS) 500,000 UNIT/5 ML ORAL.SUSP GT SCH ×4 (08:19→21:48)
[2023-10-30] MEDS: ASPIRIN 81 MG TAB.CHEW GT SCH (08:19)
[2023-10-30] MEDS: CHOLECALCIFEROL 1,000 UNIT TABLET (VIT D3) GT SCH (08:19)
[2023-10-30] MEDS: FERROUS SULFATE (325 MG) 325 MG/TAB TABLET GT SCH ×2 (08:19→16:26)
[2023-10-30] MEDS: METOPROLOL TARTRATE 25 MG TABLET GT SCH ×2 (08:20→21:55)
[2023-10-30 08:32] VITALS: BP 103/59; TEMP 98.4; O2SAT 96
[2023-10-30 16:08] VITALS: BP 110/65; TEMP 98.7; O2SAT 96
[2023-10-30] MEDS: TAMSULOSIN 0.4 MG CAP.SR.24H GT SCH (21:48)
[2023-10-30] MEDS: MIRTAZAPINE 15 MG TABLET GT SCH (21:48)
[2023-10-30] MEDS: CEFTRIAXONE 1 G in IV D5W 50 ML IV SCH (22:20)
[2023-10-31 04:00] VITALS: BP 130/72; TEMP 97.6; O2SAT 100
[2023-10-31 06:41] LABS: BASOPHILS % (AUTO) 0.6 % (0.0-2.0); EOSINOPHILS # (AUTO) 0.2 K/uL (0.0-0.7); EOSINOPHILS % (AUTO) 3.2 % (0.0-6.0); HEMATOCRIT 33 % (39-51); HEMOGLOBIN 10.8 g/dL (13.5-17.5); LYMPHOCYTES # (AUTO) 1.2 K/uL (0.8-4.8); LYMPHOCYTES % (AUTO) 17.6 % (20.0-44.0); MEAN CORPUSCULAR HEMOGLOBIN 31 PG (26.0-33.0); MEAN CORPUSCULAR HGB CONC 33 g/dl (31.0-36.0); MEAN CORPUSCULAR VOLUME 96 fL (80-96); MONOCYTES # (AUTO) 0.6 K/uL (0.1-1.30); NEUTROPHILS % (AUTO) 70.6 % (43.0-81.0); PLATELET COUNT (AUTO) 154 K/uL (150-450); RED BLOOD CELL COUNT(AUTO) 3.46 MIL/uL (4.5-6.0); RED CELL DISTRIBUTION WIDTH 12.9 % (11.5-15.0); WHITE BLOOD COUNT (AUTO) 7.1 K/uL (4.3-11.0)
[2023-10-31 07:03] LABS: CALCIUM, SERUM 10.2 mg/dL (8.5-10.1); CREATININE 0.9 mg/dL (0.6-1.3); MAGNESIUM 2.5 mg/dL (1.8-2.4); PHOSPHORUS 4.2 mg/dL (2.5-4.9); POTASSIUM 3.9 mmol/L (3.5-5.1)
[2023-10-31 08:00] VITALS: BP 98/64; TEMP 97.7; O2SAT 97
[2023-10-31] MEDS: ASPIRIN 81 MG TAB.CHEW GT SCH (08:33)
[2023-10-31] MEDS: CHOLECALCIFEROL 1,000 UNIT TABLET (VIT D3) GT SCH (08:33)
[2023-10-31] MEDS: NYSTATIN (PYXIS) 500,000 UNIT/5 ML ORAL.SUSP GT SCH ×4 (08:33→20:49)
[2023-10-31] MEDS: METOPROLOL TARTRATE 25 MG TABLET GT SCH ×2 (08:33→20:49)
[2023-10-31] MEDS: FERROUS SULFATE (325 MG) 325 MG/TAB TABLET GT SCH ×2 (08:33→16:51)
[2023-10-31] MEDS: HALOPERIDOL 5 MG TABLET GT SCH ×2 (08:33→16:51)
[2023-10-31] MEDS: VITAL AF 1.2 1,000 ML BOTTLE GT PRN (12:37)
[2023-10-31 16:00] VITALS: BP 114/68; TEMP 97.3; O2SAT 98
[2023-10-31 20:00] VITALS: BP 116/62; TEMP 99.9; O2SAT 99
[2023-10-31] MEDS: MIRTAZAPINE 15 MG TABLET GT SCH (21:13)
[2023-10-31] MEDS: TAMSULOSIN 0.4 MG CAP.SR.24H GT SCH (21:13)
[2023-10-31] MEDS: CEFTRIAXONE 1 G in IV D5W 50 ML IV SCH (21:20)
[2023-11-01] VITALS: BP 116/61; TEMP 97.7; O2SAT 100
[2023-11-01 04:20] VITALS: BP 109/61; TEMP 97.6; O2SAT 95
[2023-11-01 07:34] LABS: BASOPHILS % (AUTO) 0.4 % (0.0-2.0); EOSINOPHILS # (AUTO) 0.2 K/uL (0.0-0.7); HEMATOCRIT 34 % (39-51); LYMPHOCYTES # (AUTO) 1.3 K/uL (0.8-4.8); LYMPHOCYTES % (AUTO) 19.2 % (20.0-44.0); MEAN CORPUSCULAR HEMOGLOBIN 31 PG (26.0-33.0); MEAN CORPUSCULAR HGB CONC 32 g/dl (31.0-36.0); MEAN CORPUSCULAR VOLUME 96 fL (80-96); MONOCYTES # (AUTO) 0.6 K/uL (0.1-1.30); NEUTROPHILS # (AUTO) 4.8 K/uL (1.8-8.9); NEUTROPHILS % (AUTO) 68.4 % (43.0-81.0); PLATELET COUNT (AUTO) 172 K/uL (150-450); RED BLOOD CELL COUNT(AUTO) 3.55 MIL/uL (4.5-6.0); RED CELL DISTRIBUTION WIDTH 13.3 % (11.5-15.0)
[2023-11-01 07:48] LABS: CALCIUM, SERUM 10.5 mg/dL (8.5-10.1); CREATININE 0.9 mg/dL (0.6-1.3); POTASSIUM 3.7 mmol/L (3.5-5.1)
[2023-11-01 08:00] VITALS: BP 128/63; TEMP 98.9; O2SAT 100
[2023-11-01] MEDS: HALOPERIDOL 5 MG TABLET GT SCH ×2 (08:24→16:28)
[2023-11-01] MEDS: METOPROLOL TARTRATE 25 MG TABLET GT SCH ×2 (08:24→21:22)
[2023-11-01] MEDS: FERROUS SULFATE (325 MG) 325 MG/TAB TABLET GT SCH ×2 (08:24→16:28)
[2023-11-01] MEDS: ASPIRIN 81 MG TAB.CHEW GT SCH (08:24)
[2023-11-01] MEDS: CHOLECALCIFEROL 1,000 UNIT TABLET (VIT D3) GT SCH (08:24)
[2023-11-01] MEDS: NYSTATIN (PYXIS) 500,000 UNIT/5 ML ORAL.SUSP GT SCH ×4 (08:25→21:22)
[2023-11-01 16:00] VITALS: BP 117/56; TEMP 97.2; O2SAT 100
[2023-11-01] MEDS ORDERED: THERAHONEY GEL 1.5 OZ TUBE TP SCH (16:00)
[2023-11-01 20:00] VITALS: BP 137/75; TEMP 97.7; O2SAT 95
[2023-11-01] MEDS: TAMSULOSIN 0.4 MG CAP.SR.24H GT SCH (21:22)
[2023-11-01] MEDS: MIRTAZAPINE 15 MG TABLET GT SCH (21:22)
[2023-11-02 04:00] VITALS: BP 128/71; TEMP 97.6; O2SAT 97
[2023-11-02 07:24] LABS: BASOPHILS % (AUTO) 0.4 % (0.0-2.0); EOSINOPHILS # (AUTO) 0.3 K/uL (0.0-0.7); EOSINOPHILS % (AUTO) 3.8 % (0.0-6.0); HEMATOCRIT 35 % (39-51); HEMOGLOBIN 11.5 g/dL (13.5-17.5); LYMPHOCYTES # (AUTO) 1.7 K/uL (0.8-4.8); LYMPHOCYTES % (AUTO) 22.3 % (20.0-44.0); MEAN CORPUSCULAR HEMOGLOBIN 31 PG (26.0-33.0); MEAN CORPUSCULAR HGB CONC 33 g/dl (31.0-36.0); MEAN CORPUSCULAR VOLUME 96 fL (80-96); MONOCYTES # (AUTO) 0.6 K/uL (0.1-1.30); MONOCYTES % (AUTO) 8.4 % (2.0-12.0); NEUTROPHILS # (AUTO) 4.9 K/uL (1.8-8.9); NEUTROPHILS % (AUTO) 65.1 % (43.0-81.0); PLATELET COUNT (AUTO) 172 K/uL (150-450); RED BLOOD CELL COUNT(AUTO) 3.67 MIL/uL (4.5-6.0); RED CELL DISTRIBUTION WIDTH 13.1 % (11.5-15.0); WHITE BLOOD COUNT (AUTO) 7.5 K/uL (4.3-11.0)
[2023-11-02 07:39] LABS: CALCIUM, SERUM 10.6 mg/dL (8.5-10.1); POTASSIUM 3.9 mmol/L (3.5-5.1)
[2023-11-02] MEDS ORDERED: NYSTATIN (PYXIS) 500,000 UNIT/5 ML ORAL.SUSP PO SCH (10:00)
[2023-11-02] MEDS: FERROUS SULFATE (325 MG) 325 MG/TAB TABLET GT SCH ×2 (10:04→17:49)
[2023-11-02] MEDS: NYSTATIN (PYXIS) 500,000 UNIT/5 ML ORAL.SUSP GT SCH ×4 (10:04→23:03)
[2023-11-02] MEDS: CHOLECALCIFEROL 1,000 UNIT TABLET (VIT D3) GT SCH (10:04)
[2023-11-02] MEDS: ASPIRIN 81 MG TAB.CHEW GT SCH (10:05)
[2023-11-02] MEDS: HALOPERIDOL 5 MG TABLET GT SCH ×2 (10:06→17:49)
[2023-11-02] MEDS: METOPROLOL TARTRATE 25 MG TABLET GT SCH ×2 (10:07→23:37)
[2023-11-02] MEDS: THERAHONEY GEL 1.5 OZ TUBE TP SCH (10:07)
[2023-11-02] MEDS: FLUCONAZOLE IN NS 100 MG in PREMIX 1 EA IV SCH ×2 (10:45)
[2023-11-02 12:00] VITALS: BP 118/71; TEMP 98; O2SAT 97
[2023-11-02] MEDS: VITAL AF 1.2 1,000 ML BOTTLE GT PRN ×2 (12:31→12:48)
[2023-11-02 21:00] VITALS: BP 117/57; TEMP 97.9; O2SAT 100
[2023-11-02] MEDS: TAMSULOSIN 0.4 MG CAP.SR.24H GT SCH (23:04)
[2023-11-02] MEDS: MIRTAZAPINE 15 MG TABLET GT SCH (23:04)
[2023-11-03 04:00] VITALS: BP 115/68; TEMP 98.2; O2SAT 99
[2023-11-03 06:49] LABS: BASOPHILS # (AUTO) 0.2 K/uL (0.0-0.2); EOSINOPHILS # (AUTO) 0.5 K/uL (0.0-0.7); EOSINOPHILS % (AUTO) 3.3 % (0.0-6.0); HEMATOCRIT 34 % (39-51); HEMOGLOBIN 11.1 g/dL (13.5-17.5); LYMPHOCYTES % (AUTO) 19.4 % (20.0-44.0); MEAN CORPUSCULAR HEMOGLOBIN 31 PG (26.0-33.0); MEAN CORPUSCULAR HGB CONC 32 g/dl (31.0-36.0); MEAN CORPUSCULAR VOLUME 97 fL (80-96); MONOCYTES # (AUTO) 1.2 K/uL (0.1-1.30); MONOCYTES % (AUTO) 7.7 % (2.0-12.0); NEUTROPHILS # (AUTO) 10.8 K/uL (1.8-8.9); NEUTROPHILS % (AUTO) 68.6 % (43.0-81.0); PLATELET COUNT (AUTO) 185 K/uL (150-450); RED BLOOD CELL COUNT(AUTO) 3.54 MIL/uL (4.5-6.0); RED CELL DISTRIBUTION WIDTH 13.2 % (11.5-15.0); WHITE BLOOD COUNT (AUTO) 15.7 K/uL (4.3-11.0)
[2023-11-03 07:23] LABS: BILIRUBIN,TOTAL 0.3 mg/dL (0.2-1.0); CALCIUM, SERUM 10.4 mg/dL (8.5-10.1); CREATININE 0.9 mg/dL (0.6-1.3); POTASSIUM 4.1 mmol/L (3.5-5.1); TOTAL PROTEIN, SERUM 7.6 g/dL (6.4-8.2)
[2023-11-03 07:40] LABS: ALBUMIN 2.3 g/dL (3.4-5.0)
[2023-11-03 08:00] VITALS: BP 105/55; TEMP 97.6; O2SAT 98
[2023-11-03] MEDS: THERAHONEY GEL 1.5 OZ TUBE TP SCH (09:00)
[2023-11-03] MEDS: METOPROLOL TARTRATE 25 MG TABLET GT SCH ×2 (09:00→21:59)
[2023-11-03] MEDS: ASPIRIN 81 MG TAB.CHEW GT SCH (10:03)
[2023-11-03] MEDS: CHOLECALCIFEROL 1,000 UNIT TABLET (VIT D3) GT SCH (10:03)
[2023-11-03] MEDS: FERROUS SULFATE (325 MG) 325 MG/TAB TABLET GT SCH ×2 (10:03→18:00)
[2023-11-03] MEDS: NYSTATIN (PYXIS) 500,000 UNIT/5 ML ORAL.SUSP GT SCH ×4 (10:04→21:58)
[2023-11-03] MEDS: HALOPERIDOL 5 MG TABLET GT SCH ×2 (10:04→18:00)
[2023-11-03] MEDS: FLUCONAZOLE IN NS 100 MG in PREMIX 1 EA IV SCH ×2 (10:41)
[2023-11-03 12:00] VITALS: BP 108/59; TEMP 97.7; O2SAT 98
[2023-11-03] MEDS ORDERED: IV NS 0.9% 250 ML IV PRN (12:00)
[2023-11-03] MEDS: VITAL AF 1.2 1,000 ML BOTTLE GT PRN (12:03)
[2023-11-03 20:00] VITALS: BP 120/57; TEMP 97.7; O2SAT 98
[2023-11-03] MEDS: TAMSULOSIN 0.4 MG CAP.SR.24H GT SCH (21:58)
[2023-11-03] MEDS: MIRTAZAPINE 15 MG TABLET GT SCH (21:58)
[2023-11-04 04:00] VITALS: BP 123/57; TEMP 97.9; O2SAT 98
[2023-11-04 07:02] LABS: BASOPHILS % (AUTO) 0.6 % (0.0-2.0); EOSINOPHILS # (AUTO) 0.3 K/uL (0.0-0.7); HEMATOCRIT 34 % (39-51); LYMPHOCYTES # (AUTO) 1.6 K/uL (0.8-4.8); MEAN CORPUSCULAR HEMOGLOBIN 31 PG (26.0-33.0); MEAN CORPUSCULAR HGB CONC 33 g/dl (31.0-36.0); MEAN CORPUSCULAR VOLUME 97 fL (80-96); MONOCYTES # (AUTO) 0.6 K/uL (0.1-1.30); MONOCYTES % (AUTO) 8.1 % (2.0-12.0); NEUTROPHILS # (AUTO) 5.3 K/uL (1.8-8.9); NEUTROPHILS % (AUTO) 67.3 % (43.0-81.0); PLATELET COUNT (AUTO) 160 K/uL (150-450); RED BLOOD CELL COUNT(AUTO) 3.49 MIL/uL (4.5-6.0); RED CELL DISTRIBUTION WIDTH 13.2 % (11.5-15.0); WHITE BLOOD COUNT (AUTO) 7.8 K/uL (4.3-11.0)
[2023-11-04 07:25] LABS: ALANINE AMINOTRANSFERASE 16 U/L (12-78); ALBUMIN 2.2 g/dL (3.4-5.0); ALKALINE PHOSPHATASE 61 U/L (46-116); ASPARTATE AMINOTRANSFERASE 22 U/L (15-37); BILIRUBIN,TOTAL 0.2 mg/dL (0.2-1.0); CARBON DIOXIDE 27 mmol/L (21-32); CHLORIDE 113 mmol/L (98-107); CREATININE 0.9 mg/dL (0.6-1.3); GLUCOSE 116 mg/dL (74-106); POTASSIUM 3.9 mmol/L (3.5-5.1); SODIUM SERUM 147 mmol/L (136-145); TOTAL PROTEIN, SERUM 7.2 g/dL (6.4-8.2); UREA NITROGEN, BLOOD 35 mg/dL (7-18)
[2023-11-04] MEDS: HALOPERIDOL 5 MG TABLET GT SCH ×2 (08:47→16:10)
[2023-11-04] MEDS: CHOLECALCIFEROL 1,000 UNIT TABLET (VIT D3) GT SCH (08:47)
[2023-11-04] MEDS: FERROUS SULFATE (325 MG) 325 MG/TAB TABLET GT SCH ×2 (08:47→16:10)
[2023-11-04] MEDS: ASPIRIN 81 MG TAB.CHEW GT SCH (08:48)
[2023-11-04] MEDS: NYSTATIN (PYXIS) 500,000 UNIT/5 ML ORAL.SUSP GT SCH ×4 (08:48→21:29)
[2023-11-04] MEDS: METOPROLOL TARTRATE 25 MG TABLET GT SCH ×2 (08:48→21:30)
[2023-11-04] MEDS: THERAHONEY GEL 1.5 OZ TUBE TP SCH (08:49)
[2023-11-04] MEDS: FLUCONAZOLE (100 MG) 100 MG TABLET GT SCH (09:16)
[2023-11-04 12:54] VITALS: BP 137/75; TEMP 97.7; O2SAT 95
[2023-11-04 20:00] VITALS: BP 144/64; TEMP 98.3; O2SAT 96
[2023-11-04] MEDS: MIRTAZAPINE 15 MG TABLET GT SCH (21:29)
[2023-11-04] MEDS: TAMSULOSIN 0.4 MG CAP.SR.24H GT SCH (21:30)
[2023-11-04] MEDS: VITAL AF 1.2 1,000 ML BOTTLE GT PRN (22:03)
[2023-11-05 04:00] VITALS: BP 118/79; TEMP 97.6; O2SAT 96
[2023-11-05 07:21] LABS: BASOPHILS % (AUTO) 0.5 % (0.0-2.0); EOSINOPHILS # (AUTO) 0.2 K/uL (0.0-0.7); EOSINOPHILS % (AUTO) 2.9 % (0.0-6.0); HEMATOCRIT 35 % (39-51); HEMOGLOBIN 11.4 g/dL (13.5-17.5); LYMPHOCYTES # (AUTO) 1.8 K/uL (0.8-4.8); LYMPHOCYTES % (AUTO) 21.8 % (20.0-44.0); MEAN CORPUSCULAR HEMOGLOBIN 32 PG (26.0-33.0); MEAN CORPUSCULAR HGB CONC 33 g/dl (31.0-36.0); MEAN CORPUSCULAR VOLUME 96 fL (80-96); MONOCYTES # (AUTO) 0.7 K/uL (0.1-1.30); MONOCYTES % (AUTO) 8.6 % (2.0-12.0); NEUTROPHILS # (AUTO) 5.3 K/uL (1.8-8.9); NEUTROPHILS % (AUTO) 66.2 % (43.0-81.0); PLATELET COUNT (AUTO) 166 K/uL (150-450); RED CELL DISTRIBUTION WIDTH 13.4 % (11.5-15.0); WHITE BLOOD COUNT (AUTO) 8.1 K/uL (4.3-11.0)
[2023-11-05 07:48] LABS: ALBUMIN 2.3 g/dL (3.4-5.0); BILIRUBIN,TOTAL 0.2 mg/dL (0.2-1.0); CALCIUM, SERUM 10.3 mg/dL (8.5-10.1); CREATININE 0.9 mg/dL (0.6-1.3); POTASSIUM 4.3 mmol/L (3.5-5.1); TOTAL PROTEIN, SERUM 7.4 g/dL (6.4-8.2)
[2023-11-05] MEDS: NYSTATIN (PYXIS) 500,000 UNIT/5 ML ORAL.SUSP GT SCH ×4 (08:54→22:06)
[2023-11-05] MEDS: CHOLECALCIFEROL 1,000 UNIT TABLET (VIT D3) GT SCH (08:54)
[2023-11-05] MEDS: FERROUS SULFATE (325 MG) 325 MG/TAB TABLET GT SCH ×2 (08:54→16:20)
[2023-11-05] MEDS: ASPIRIN 81 MG TAB.CHEW GT SCH (08:54)
[2023-11-05] MEDS: METOPROLOL TARTRATE 25 MG TABLET GT SCH ×2 (08:54→22:07)
[2023-11-05] MEDS: HALOPERIDOL 5 MG TABLET GT SCH ×2 (08:54→16:20)
[2023-11-05] MEDS: THERAHONEY GEL 1.5 OZ TUBE TP SCH (08:55)
[2023-11-05] MEDS: FLUCONAZOLE (100 MG) 100 MG TABLET GT SCH (09:00)
[2023-11-05] MEDS ORDERED: IV D5W 500 ML IV ONE (12:00)
[2023-11-05 13:41] VITALS: BP 108/59; TEMP 97.7; O2SAT 98
[2023-11-05 15:34] LABS: INR 1.03 (0.91-1.10); PROTHROMBIN TIME 10.9 SECS (9.2-11.1)
[2023-11-05] MEDS: VITAL AF 1.2 1,000 ML BOTTLE GT PRN (17:06)
[2023-11-05 20:00] VITALS: BP 130/64; TEMP 98.9; O2SAT 95
[2023-11-05] MEDS: TAMSULOSIN 0.4 MG CAP.SR.24H GT SCH (22:06)
[2023-11-05] MEDS: MIRTAZAPINE 15 MG TABLET GT SCH (22:07)
[2023-11-06 04:00] VITALS: BP 131/68; TEMP 98; O2SAT 98
[2023-11-06 07:45] LABS: BASOPHILS # (AUTO) 0.1 K/uL (0.0-0.2); BASOPHILS % (AUTO) 0.6 % (0.0-2.0); EOSINOPHILS # (AUTO) 0.1 K/uL (0.0-0.7); EOSINOPHILS % (AUTO) 1.5 % (0.0-6.0); HEMATOCRIT 37 % (39-51); LYMPHOCYTES # (AUTO) 1.5 K/uL (0.8-4.8); LYMPHOCYTES % (AUTO) 16.3 % (20.0-44.0); MEAN CORPUSCULAR HEMOGLOBIN 31 PG (26.0-33.0); MEAN CORPUSCULAR HGB CONC 33 g/dl (31.0-36.0); MEAN CORPUSCULAR VOLUME 97 fL (80-96); MONOCYTES % (AUTO) 10.4 % (2.0-12.0); NEUTROPHILS # (AUTO) 6.7 K/uL (1.8-8.9); NEUTROPHILS % (AUTO) 71.2 % (43.0-81.0); PLATELET COUNT (AUTO) 176 K/uL (150-450); RED BLOOD CELL COUNT(AUTO) 3.83 MIL/uL (4.5-6.0); RED CELL DISTRIBUTION WIDTH 13.5 % (11.5-15.0); WHITE BLOOD COUNT (AUTO) 9.4 K/uL (4.3-11.0)
[2023-11-06 08:29] LABS: CALCIUM, SERUM 10.7 mg/dL (8.5-10.1); POTASSIUM 4.1 mmol/L (3.5-5.1)
[2023-11-06] MEDS: ASPIRIN 81 MG TAB.CHEW GT SCH (09:00)
[2023-11-06] MEDS: NYSTATIN (PYXIS) 500,000 UNIT/5 ML ORAL.SUSP GT SCH ×4 (09:40→20:05)
[2023-11-06] MEDS: FERROUS SULFATE (325 MG) 325 MG/TAB TABLET GT SCH ×2 (09:40→16:22)
[2023-11-06] MEDS: HALOPERIDOL 5 MG TABLET GT SCH ×2 (09:40→16:18)
[2023-11-06] MEDS: METOPROLOL TARTRATE 25 MG TABLET GT SCH ×2 (09:40→20:40)
[2023-11-06] MEDS: FLUCONAZOLE (100 MG) 100 MG TABLET GT SCH (09:40)
[2023-11-06] MEDS: CHOLECALCIFEROL 1,000 UNIT TABLET (VIT D3) GT SCH (09:40)
[2023-11-06] MEDS: THERAHONEY GEL 1.5 OZ TUBE TP SCH (09:41)
[2023-11-06 12:00] VITALS: BP 129/80; TEMP 97.6; O2SAT 96
[2023-11-06 20:56] VITALS: BP 111/52; TEMP 97.9; O2SAT 98
[2023-11-06] MEDS: MIRTAZAPINE 15 MG TABLET GT SCH (22:46)
[2023-11-06] MEDS: TAMSULOSIN 0.4 MG CAP.SR.24H GT SCH (22:46)
[2023-11-07 04:28] VITALS: BP 111/60; TEMP 97.9; O2SAT 98
[2023-11-07 08:12] LABS: BASOPHILS % (AUTO) 0.5 % (0.0-2.0); EOSINOPHILS # (AUTO) 0.2 K/uL (0.0-0.7); HEMATOCRIT 36 % (39-51); HEMOGLOBIN 11.6 g/dL (13.5-17.5); LYMPHOCYTES # (AUTO) 1.7 K/uL (0.8-4.8); MEAN CORPUSCULAR HEMOGLOBIN 31 PG (26.0-33.0); MEAN CORPUSCULAR HGB CONC 33 g/dl (31.0-36.0); MEAN CORPUSCULAR VOLUME 96 fL (80-96); MONOCYTES % (AUTO) 10.7 % (2.0-12.0); NEUTROPHILS # (AUTO) 6.8 K/uL (1.8-8.9); NEUTROPHILS % (AUTO) 69.8 % (43.0-81.0); PLATELET COUNT (AUTO) 176 K/uL (150-450); RED BLOOD CELL COUNT(AUTO) 3.73 MIL/uL (4.5-6.0); RED CELL DISTRIBUTION WIDTH 13.5 % (11.5-15.0); WHITE BLOOD COUNT (AUTO) 9.7 K/uL (4.3-11.0)
[2023-11-07 08:17] LABS: CALCIUM, SERUM 10.5 mg/dL (8.5-10.1); POTASSIUM 4.1 mmol/L (3.5-5.1)
[2023-11-07] MEDS: CHOLECALCIFEROL 1,000 UNIT TABLET (VIT D3) GT SCH (09:00)
[2023-11-07] MEDS: METOPROLOL TARTRATE 25 MG TABLET GT SCH ×2 (09:00→22:14)
[2023-11-07] MEDS: ASPIRIN 81 MG TAB.CHEW GT SCH (09:00)
[2023-11-07] MEDS: FERROUS SULFATE (325 MG) 325 MG/TAB TABLET GT SCH ×2 (09:00→17:00)
[2023-11-07] MEDS: NYSTATIN (PYXIS) 500,000 UNIT/5 ML ORAL.SUSP GT SCH ×4 (09:00→22:14)
[2023-11-07] MEDS: HALOPERIDOL 5 MG TABLET GT SCH ×2 (09:00→17:00)
[2023-11-07] MEDS: THERAHONEY GEL 1.5 OZ TUBE TP SCH (09:49)
[2023-11-07] MEDS ORDERED: IV D5W 1,000 ML IV ONE (10:00)
[2023-11-07] MEDS: FLUCONAZOLE (100 MG) 100 MG TABLET GT SCH (10:00)
[2023-11-07 12:00] VITALS: BP 110/72; TEMP 98.8; O2SAT 95
[2023-11-07] MEDS: VITAL AF 1.2 1,000 ML BOTTLE GT PRN (18:53)
[2023-11-07 20:00] VITALS: BP 114/59; TEMP 98.6; O2SAT 99
[2023-11-07] MEDS: MIRTAZAPINE 15 MG TABLET GT SCH (22:13)
[2023-11-07] MEDS: TAMSULOSIN 0.4 MG CAP.SR.24H GT SCH (22:13)
[2023-11-08 04:00] VITALS: BP 110/60; TEMP 98.6; O2SAT 99
[2023-11-08 06:53] LABS: BASOPHILS % (AUTO) 0.4 % (0.0-2.0); EOSINOPHILS # (AUTO) 0.3 K/uL (0.0-0.7); EOSINOPHILS % (AUTO) 2.5 % (0.0-6.0); HEMATOCRIT 34 % (39-51); HEMOGLOBIN 11.2 g/dL (13.5-17.5); LYMPHOCYTES # (AUTO) 1.6 K/uL (0.8-4.8); LYMPHOCYTES % (AUTO) 15.6 % (20.0-44.0); MEAN CORPUSCULAR HEMOGLOBIN 32 PG (26.0-33.0); MEAN CORPUSCULAR HGB CONC 33 g/dl (31.0-36.0); MEAN CORPUSCULAR VOLUME 96 fL (80-96); MONOCYTES # (AUTO) 1.2 K/uL (0.1-1.30); MONOCYTES % (AUTO) 11.5 % (2.0-12.0); NEUTROPHILS # (AUTO) 7.3 K/uL (1.8-8.9); PLATELET COUNT (AUTO) 173 K/uL (150-450); RED BLOOD CELL COUNT(AUTO) 3.54 MIL/uL (4.5-6.0); RED CELL DISTRIBUTION WIDTH 13.3 % (11.5-15.0); WHITE BLOOD COUNT (AUTO) 10.4 K/uL (4.3-11.0)
[2023-11-08 07:53] LABS: CALCIUM, SERUM 10.5 mg/dL (8.5-10.1); CREATININE 1.1 mg/dL (0.6-1.3); POTASSIUM 3.8 mmol/L (3.5-5.1)
[2023-11-08] MEDS: METOPROLOL TARTRATE 25 MG TABLET GT SCH ×2 (09:00→21:00)
[2023-11-08] MEDS ORDERED: IV D5W 1,000 ML IV PRN (10:30)
[2023-11-08] MEDS: NYSTATIN (PYXIS) 500,000 UNIT/5 ML ORAL.SUSP GT SCH ×4 (11:56→21:00)
[2023-11-08] MEDS: FERROUS SULFATE (325 MG) 325 MG/TAB TABLET GT SCH ×2 (11:56→16:00)
[2023-11-08] MEDS: ASPIRIN 81 MG TAB.CHEW GT SCH (11:56)
[2023-11-08] MEDS: HALOPERIDOL 5 MG TABLET GT SCH ×2 (11:56→16:01)
[2023-11-08] MEDS: CHOLECALCIFEROL 1,000 UNIT TABLET (VIT D3) GT SCH (11:57)
[2023-11-08] MEDS: FLUCONAZOLE (100 MG) 100 MG TABLET GT SCH (11:57)
[2023-11-08] MEDS: THERAHONEY GEL 1.5 OZ TUBE TP SCH (11:59)
[2023-11-08 12:00] VITALS: BP 108/55; TEMP 98.6; O2SAT 99
[2023-11-08] MEDS ORDERED: ANESTHESIA TRAY IN PYXIS 1 EA TRAY MC ONE (12:45)
[2023-11-08 16:00] VITALS: BP 113/53; TEMP 98.6; O2SAT 97
[2023-11-08 20:00] VITALS: BP 114/53; TEMP 98.1; O2SAT 94
[2023-11-08] MEDS: TAMSULOSIN 0.4 MG CAP.SR.24H GT SCH (21:11)
[2023-11-08] MEDS: MIRTAZAPINE 15 MG TABLET GT SCH (21:11)
[2023-11-09 04:00] VITALS: BP 110/60; TEMP 98.4; O2SAT 95
[2023-11-09 06:41] LABS: BASOPHILS % (AUTO) 0.4 % (0.0-2.0); EOSINOPHILS # (AUTO) 0.1 K/uL (0.0-0.7); EOSINOPHILS % (AUTO) 1.3 % (0.0-6.0); HEMATOCRIT 36 % (39-51); HEMOGLOBIN 11.7 g/dL (13.5-17.5); LYMPHOCYTES # (AUTO) 1.7 K/uL (0.8-4.8); LYMPHOCYTES % (AUTO) 19.7 % (20.0-44.0); MEAN CORPUSCULAR HEMOGLOBIN 31 PG (26.0-33.0); MEAN CORPUSCULAR HGB CONC 33 g/dl (31.0-36.0); MEAN CORPUSCULAR VOLUME 95 fL (80-96); MONOCYTES # (AUTO) 0.9 K/uL (0.1-1.30); MONOCYTES % (AUTO) 10.8 % (2.0-12.0); NEUTROPHILS # (AUTO) 5.9 K/uL (1.8-8.9); NEUTROPHILS % (AUTO) 67.8 % (43.0-81.0); PLATELET COUNT (AUTO) 176 K/uL (150-450); RED BLOOD CELL COUNT(AUTO) 3.75 MIL/uL (4.5-6.0); RED CELL DISTRIBUTION WIDTH 13.7 % (11.5-15.0); WHITE BLOOD COUNT (AUTO) 8.6 K/uL (4.3-11.0)
[2023-11-09 06:47] LABS: CALCIUM, SERUM 10.6 mg/dL (8.5-10.1); CREATININE 1.1 mg/dL (0.6-1.3)
[2023-11-09 08:00] VITALS: BP 112/66; TEMP 97.9; O2SAT 98
[2023-11-09] MEDS: CHOLECALCIFEROL 1,000 UNIT TABLET (VIT D3) GT SCH (08:27)
[2023-11-09] MEDS: NYSTATIN (PYXIS) 500,000 UNIT/5 ML ORAL.SUSP GT SCH ×2 (08:27→13:40)
[2023-11-09] MEDS: FERROUS SULFATE (325 MG) 325 MG/TAB TABLET GT SCH (08:28)
[2023-11-09] MEDS: HALOPERIDOL 5 MG TABLET GT SCH (08:28)
[2023-11-09] MEDS: ASPIRIN 81 MG TAB.CHEW GT SCH (08:28)
[2023-11-09] MEDS: VITAL AF 1.2 1,000 ML BOTTLE GT PRN (08:32)
[2023-11-09] MEDS: METOPROLOL TARTRATE 25 MG TABLET GT SCH (09:00)
[2023-11-09] MEDS ORDERED: FLUC100T PO (09:12)
[2023-11-09] MEDS: FLUCONAZOLE (100 MG) 100 MG TABLET GT SCH (09:54)
[2023-11-09] MEDS: THERAHONEY GEL 1.5 OZ TUBE TP SCH (09:54)
[2023-11-09 12:00] VITALS: BP 127/74; TEMP 98; O2SAT 97
== END 2023-11-09 16:45 | DRG 871 ==
LOC: ER 20:30 → MEDSG1 23:45 → TELE1 10-22 00:03 → MEDSG1 10-23 09:27
PROVIDERS: ADMIT Nurse Practitioner Acute Care; ATTEND Internal Medicine
PROC: 05H633Z Insertion of Infusion Device into Left Subclavian Vein, Percutaneous Approach (ICD-10-PCS; principal; 2023-10-26)
PROC: B547ZZA Ultrasonography of Left Subclavian Vein, Guidance (ICD-10-PCS; 2023-10-26)
PROC: 0DH63UZ Insertion of Feeding Device into Stomach, Percutaneous Approach (ICD-10-PCS; 2023-11-08)
DX: A41.9 Sepsis, unspecified organism (principal); J96.01 Acute respiratory failure with hypoxia; N17.0 Acute kidney failure with tubular necrosis; J69.0 Pneumonitis due to inhalation of food and vomit; G92.8 Other toxic encephalopathy; J15.9 Unspecified bacterial pneumonia; E44.0 Moderate protein-calorie malnutrition; E87.0 Hyperosmolality and hypernatremia; B37.0 Candidal stomatitis; K29.70 Gastritis, unspecified, without bleeding; D69.6 Thrombocytopenia, unspecified; E03.9 Hypothyroidism, unspecified; E66.01 Morbid (severe) obesity due to excess calories; E78.5 Hyperlipidemia, unspecified; E86.1 Hypovolemia; E86.0 Dehydration; R13.10 Dysphagia, unspecified; R62.7 Adult failure to thrive; N18.9 Chronic kidney disease, unspecified; Z79.82 Long term (current) use of aspirin; Z86.73 Personal history of transient ischemic attack (TIA), and cerebral infarction without residual deficits; Z87.01 Personal history of pneumonia (recurrent); Z85.038 Personal history of other malignant neoplasm of large intestine; Z74.01 Bed confinement status; S30.0XXA Contusion of lower back and pelvis, initial encounter; Z20.822 Contact with and (suspected) exposure to COVID-19; L89.156 Pressure-induced deep tissue damage of sacral region; L89.116 Pressure-induced deep tissue damage of right upper back; L89.126 Pressure-induced deep tissue damage of left upper back; F03.90 Unspecified dementia, unspecified severity, without behavioral disturbance, psychotic disturbance, mood disturbance, and anxiety; S00.412A Abrasion of left ear, initial encounter; X58.XXXA Exposure to other specified factors, initial encounter; Y93.9 Activity, unspecified; Y92.129 Unspecified place in nursing home as the place of occurrence of the external cause; F32.A Depression, unspecified; E88.09 Other disorders of plasma-protein metabolism, not elsewhere classified; Z68.23 Body mass index [BMI] 23.0-23.9, adult; L89.626 Pressure-induced deep tissue damage of left heel; L89.616 Pressure-induced deep tissue damage of right heel; E87.8 Other disorders of electrolyte and fluid balance, not elsewhere classified; F20.9 Schizophrenia, unspecified; I12.9 Hypertensive chronic kidney disease with stage 1 through stage 4 chronic kidney disease, or unspecified chronic kidney disease
CPT/HCPCS: 36410; 36415; 43246; 71045-TC; 74230-TC; 76770-TC; 80048-TC; 80053-TC; 80076-TC; 82550-TC; 82962-TC; 83605-TC; 83735-TC; 83970; 84100-TC; 84155; 84165; 85025-TC; 85610-TC; 85730-TC; 87040-TC; 92526; 92611-TC; A4216; A4223; A6403; G0378; J0456; J0690; J0696; J1450; J2704; J3490; J7030; J7042; J7050; J7060; J7070

== ENCOUNTER 2023-11-12 19:50 | Inpatient (IN) | payer MEDICARE, OTHER ==
[~2023-11-12] VITALS: Ht 177.8 cm; Wt 64.0 kg
[~2023-11-12 19:50] MED LIST changes: +ACET-868 PO; -ALLA266C2 TP; -AMOX-430 PO; +ASCO-340 GT; +ENOX40DI SQ; +FLUC100T PO; -MAGN400O6 PO; +MENT113O TP; +MULT-213 PO; -NA P133E RC; +NYST5ORA PO; +PANT40TA2 GT; +PETR113O TP; +PETR71OI2 TP; +POVI3780 TP; +ZINC220C6 GT
[2023-11-12] MEDS ORDERED: VANCOMYCIN 1 GM in IV D5W 250 ML IV ONE (20:30)
[2023-11-12] MEDS ORDERED: PIPERACILLIN /TAZOBACTAM 3.375 G in IV D5W 50 ML IV ONE (20:30)
[2023-11-12] MEDS ORDERED: IV NS 0.9% 1,000 ML BAG IV ONE (20:30)
[2023-11-12] MEDS ORDERED: VANCOMYCIN 1 GM /D5W 250 ML PB IV ONE (20:44)
[2023-11-12] MEDS ORDERED: PIPERACI/TAZO 3.375GM/D5W 50ML PB IV ONE (20:44)
[2023-11-12 20:57] LABS: BASOPHILS % (AUTO) 0.1 % (0.0-2.0); HEMATOCRIT 36 % (39-51); HEMOGLOBIN 11.5 g/dL (13.5-17.5); LYMPHOCYTES # (AUTO) 0.7 K/uL (0.8-4.8); LYMPHOCYTES % (AUTO) 4.8 % (20.0-44.0); MEAN CORPUSCULAR HEMOGLOBIN 31 PG (26.0-33.0); MEAN CORPUSCULAR HGB CONC 32 g/dl (31.0-36.0); MEAN CORPUSCULAR VOLUME 98 fL (80-96); MONOCYTES # (AUTO) 1.5 K/uL (0.1-1.30); MONOCYTES % (AUTO) 10.4 % (2.0-12.0); NEUTROPHILS # (AUTO) 12.2 K/uL (1.8-8.9); NEUTROPHILS % (AUTO) 84.7 % (43.0-81.0); PLATELET COUNT (AUTO) 174 K/uL (150-450); RED BLOOD CELL COUNT(AUTO) 3.71 MIL/uL (4.5-6.0); RED CELL DISTRIBUTION WIDTH 15.5 % (11.5-15.0); WHITE BLOOD COUNT (AUTO) 14.4 K/uL (4.3-11.0)
[2023-11-12 21:11] LABS: INR 1.37 (0.91-1.10); PARTIAL THROMBOPLASTIN TIME 25.2 SEC (24.3-34.3); PROTHROMBIN TIME 14.2 SECS (9.2-11.1)
[2023-11-12 21:39] LABS: APPEARANCE,URINE CLEAR (CLEAR); BILIRUBIN,URINE NEGATIVE (NEGATIVE); BLOOD, URINE NEGATIVE Ery/uL (NEGATIVE); COLOR,URINE YELLOW (YELLOW); KETONES,URINE TRACE mg/dL (NEGATIVE); LEUKOCYTE ESTERASE ,URINE NEGATIVE (NEGATIVE); NITRITE, URINE NEGATIVE (NEGATIVE); PROTEIN,URINE TRACE mg/dl (NEGATIVE); UGLUCOSE NEGATIVE (NEGATIVE); UROBILINOGEN,URINE 0.2 EU/dL (0.2)
[2023-11-12 21:46] LABS: ADD URINE CULTURE NO; BACTERIA,URINE None seen /HPF (None Seen); RBC,URINE 0-2 /HPF (0-2); WBC,URINE 0-2 /HPF (0-3)
[2023-11-12 21:48] LABS: ALANINE AMINOTRANSFERASE 19 U/L (12-78); ALKALINE PHOSPHATASE 46 U/L (46-116); ASPARTATE AMINOTRANSFERASE 43 U/L (15-37); BILIRUBIN,DIRECT 0.2 mg/dL (0.0-0.2); BILIRUBIN,TOTAL 0.7 mg/dL (0.2-1.0); CALCIUM, SERUM 10.7 mg/dL (8.5-10.1); CARBON DIOXIDE 25 mmol/L (21-32); CHLORIDE 119 mmol/L (98-107); CREATININE 3.3 mg/dL (0.6-1.3); GLUCOSE 136 mg/dL (74-106); POTASSIUM 4.6 mmol/L (3.5-5.1); TOTAL PROTEIN, SERUM 7.3 g/dL (6.4-8.2)
[2023-11-12 21:58] LABS: LACTIC ACID 5.7 mmol/L (0.4-2.0); SODIUM SERUM 159 mmol/L (136-145); UREA NITROGEN, BLOOD 83 mg/dL (7-18)
[2023-11-12] MEDS ORDERED: SCOPOLAMINE PATCH 1 MG/72HR TD ONE (23:30)
[2023-11-12] MEDS ORDERED: MORPHINE SULFATE INJ 2 MG/ML DISP.SYRIN IV ONE (23:30)
[2023-11-13] MEDS ORDERED: MORPHINE SULFATE INJ 2 MG/ML DISP.SYRIN ONE (00:44)
[2023-11-13] MEDS ORDERED: LORAZEPAM INJ 2 MG/ML VIAL ONE ×2 (00:45→01:57)
[2023-11-13] MEDS: LORAZEPAM INJ 2 MG/ML VIAL IV PRN ×2 (00:49→02:02)
[2023-11-13 00:52] LABS: ABG BASE EXCESS -4.5 mmol/L; ABG OXYGEN SATURATION 98.6 % (92.0-98.5); ABG PH 7.392 (7.350-7.450); ABG PO2 182.1 mmHg (75.0-100.0); ABG TOTAL HEMOGLOBIN 12.2 G/dL (13.5-18.0); COHb 0.3 % (0.5-1.5); MetHb 0.3 % (0.0-1.5); PEEP,BG 0 cm H2O; SITE, ABG Right Radial; VT, ABG 450 mL
[2023-11-13] MEDS ORDERED: MORPHINE SULFATE INJ 2 MG/ML DISP.SYRIN IV ONE (01:00)
[2023-11-13] MEDS ORDERED: MORPHINE SULFATE INJ 4 MG/ML DISP.SYRIN ONE ×3 (01:56→06:02)
[2023-11-13] MEDS: MORPHINE SULFATE INJ 4 MG/ML DISP.SYRIN IV PRN ×3 (02:02→06:04)
[2023-11-13] MEDS ORDERED: ETOMIDATE 2 MG/ML VIAL ONE (08:29)
[2023-11-13] MEDS ORDERED: ROCURONIUM BROMIDE 50 MG/5 ML ONE (08:29)
[2023-11-13] MEDS ORDERED: COLL30OI TP (09:14)
[2023-11-13] MEDS ORDERED: LACT-209 GT (09:14)
[2023-11-13] MEDS ORDERED: FLUC100T8 GT (09:14)
[2023-11-13] MEDS ORDERED: SENN-18 GT (09:14)
[2023-11-13] MEDS ORDERED: MULT-754 GT (09:14)
[2023-11-13] MEDS ORDERED: PETR18JE2 TP (09:14)
[2023-11-13] MEDS ORDERED: KEY,NONCONTROL,TO KEEP IN PYXI 1 EA MC ONE (11:42)
[2023-11-13] MEDS: MORPHINE SULFATE PF DRIP 100 MG in IV D5W 96 ML IV PRN (12:11)
[2023-11-13 16:00] VITALS: BP 65/44; TEMP 94.5; O2SAT 89
[2023-11-14 04:57] VITALS: BP 92/55; TEMP 97; O2SAT 99
[2023-11-14 08:00] VITALS: BP 70/48; TEMP 97.8; O2SAT 96
[2023-11-14] MEDS: MORPHINE SULFATE PF DRIP 100 MG in IV D5W 96 ML IV PRN (12:27)
[2023-11-14] MEDS ORDERED: KEY,NONCONTROL,TO KEEP IN PYXI 1 EA MC ONE (12:35)
[2023-11-14 16:00] VITALS: BP 70/49; TEMP 98; O2SAT 94
[2023-11-14 20:00] VITALS: BP 83/54; TEMP 95; O2SAT 94
[2023-11-15 05:51] VITALS: BP 71/45; TEMP 95; O2SAT 94
[2023-11-15 08:00] VITALS: BP 68/37; TEMP 96.7; O2SAT 90
[2023-11-15] MEDS ORDERED: KEY,NONCONTROL,TO KEEP IN PYXI 1 EA MC ONE (12:04)
[2023-11-15] MEDS: MORPHINE SULFATE PF DRIP 100 MG in IV D5W 96 ML IV PRN (12:06)
[2023-11-15 16:00] VITALS: BP 54/37; TEMP 95.8; O2SAT 90
== END 2023-11-15 16:48 | disposition hospice, inpatient (51) | DRG 871 ==
LOC: ER 19:51 → TRANSITION 23:31 → TELE1 11-13 10:14 → MEDSG1 11-13 10:22
PROVIDERS: ADMIT Nurse Practitioner Family; ATTEND Internal Medicine
PROC: 5A1935Z Respiratory Ventilation, Less than 24 Consecutive Hours (ICD-10-PCS; principal; 2023-11-12)
PROC: 0BH18EZ Insertion of Endotracheal Airway into Trachea, Via Natural or Artificial Opening Endoscopic (ICD-10-PCS; 2023-11-12)
PROC: 06HY33Z Insertion of Infusion Device into Lower Vein, Percutaneous Approach (ICD-10-PCS; 2023-11-12)
DX: A41.9 Sepsis, unspecified organism (principal); G93.41 Metabolic encephalopathy; I21.4 Non-ST elevation (NSTEMI) myocardial infarction; J96.01 Acute respiratory failure with hypoxia; R65.21 Severe sepsis with septic shock; J18.9 Pneumonia, unspecified organism; N17.9 Acute kidney failure, unspecified; E87.0 Hyperosmolality and hypernatremia; E03.9 Hypothyroidism, unspecified; E78.5 Hyperlipidemia, unspecified; F03.90 Unspecified dementia, unspecified severity, without behavioral disturbance, psychotic disturbance, mood disturbance, and anxiety; F20.9 Schizophrenia, unspecified; I12.9 Hypertensive chronic kidney disease with stage 1 through stage 4 chronic kidney disease, or unspecified chronic kidney disease; N18.9 Chronic kidney disease, unspecified; Z74.01 Bed confinement status; Z79.82 Long term (current) use of aspirin; Z87.01 Personal history of pneumonia (recurrent); Z51.5 Encounter for palliative care; Z85.038 Personal history of other malignant neoplasm of large intestine; L89.626 Pressure-induced deep tissue damage of left heel; L89.616 Pressure-induced deep tissue damage of right heel; Z66 Do not resuscitate
CPT/HCPCS: 36415; 36600; 71045-TC; 80048-TC; 80076-TC; 81001; 82803-TC; 83605-TC; 84484-TC; 85025-TC; 85730-TC; 87040-TC; 87081-TC; 87086-TC; 94002-TC; 94799-TC; A4223; G0378; J2060; J2270; J2274; J2543; J3370; J3490; J7030; J7040; J7060

== ENCOUNTER 2023-11-15 16:57 | Inpatient (IN) | payer OTHER ==
[~2023-11-15 16:57] MED LIST changes: -ACET-868 PO; +COLL30OI TP; -FLUC100T PO; +FLUC100T8 GT; +LACT-209 GT; -MENT113O TP; -MULT-213 PO; +MULT-754 GT; -NYST5ORA PO; +PETR18JE2 TP; +SENN-18 GT; -SENN-261 PO
[2023-11-15] MEDS ORDERED: LORAZEPAM INJ 2 MG/ML VIAL IV PRN (17:37)
[2023-11-15 20:00] VITALS: BP 94/57; TEMP 97.8; O2SAT 99
[2023-11-16 04:00] VITALS: BP 96/39; TEMP 96.5; O2SAT 95
[2023-11-16 08:00] VITALS: BP 89/41; TEMP 97.6; O2SAT 95
[2023-11-16] MEDS: MORPHINE SULFATE PF DRIP 100 MG in IV D5W 96 ML IV PRN (12:45)
[2023-11-16] MEDS ORDERED: KEY,NONCONTROL,TO KEEP IN PYXI 1 EA MC ONE (12:48)
[2023-11-16 16:00] VITALS: BP 63/40; TEMP 99; O2SAT 95
[2023-11-16 20:00] VITALS: BP 56/12; TEMP 97.7; O2SAT 97
[2023-11-17 04:00] VITALS: BP 56/12; TEMP 97.7; O2SAT 98
[2023-11-17 08:00] VITALS: BP 81/41; TEMP 97.7
[2023-11-17] MEDS ORDERED: KEY,NONCONTROL,TO KEEP IN PYXI 1 EA MC ONE ×2 (13:08→22:09)
[2023-11-17] MEDS: MORPHINE SULFATE PF DRIP 100 MG in IV D5W 96 ML IV PRN (13:13)
[2023-11-17 16:00] VITALS: BP 79/35; TEMP 98.4; O2SAT 97
== END 2023-11-17 23:31 | DRG 951 ==
LOC: HOSPICE1 16:57
PROVIDERS: ADMIT Internal Medicine; ATTEND Internal Medicine
DX: Z51.5 Encounter for palliative care (principal); A41.9 Sepsis, unspecified organism; J18.9 Pneumonia, unspecified organism; J96.01 Acute respiratory failure with hypoxia; G93.41 Metabolic encephalopathy; R65.21 Severe sepsis with septic shock; I21.4 Non-ST elevation (NSTEMI) myocardial infarction; E87.1 Hypo-osmolality and hyponatremia; N17.9 Acute kidney failure, unspecified; E03.9 Hypothyroidism, unspecified; E78.5 Hyperlipidemia, unspecified; N18.9 Chronic kidney disease, unspecified; F03.90 Unspecified dementia, unspecified severity, without behavioral disturbance, psychotic disturbance, mood disturbance, and anxiety; I12.9 Hypertensive chronic kidney disease with stage 1 through stage 4 chronic kidney disease, or unspecified chronic kidney disease; Z66 Do not resuscitate; F20.9 Schizophrenia, unspecified; Z87.01 Personal history of pneumonia (recurrent); Z85.038 Personal history of other malignant neoplasm of large intestine
CPT/HCPCS: G0378; J2274; J7060